=== PATIENT | male | born 1945 | race Caucasian/White ===

== ENCOUNTER → 2017-09-14 11:59 | Outpatient (CLI) | payer MEDICARE, SELFPAY ==
--- NOTE | 2017-09-14 12:16 | XR_ITS ---
XR knee LT 3V HISTORY: ITS.REASON: LEFT KNEE PAIN ORDERING PHYSICIAN: Avinash Salmeron MD PATIENT AGE: 71 years COMPARISON: FINDINGS: Minor osteoarthritic changes are present involving the medial compartment and patellofemoral joint. No fracture or dislocation. No lytic or blastic change. IMPRESSION: Mild osteoarthritis otherwise negative
--- NOTE | 2017-09-14 12:38 | NVE_ITS ---
Venous Exam Indications: 729.5 Pain in limb. IMPRESSIONS 1. There is no evidence of significant Reflux. 2. No evidence of deep or superficial vein thrombosis involving the left lower extremity Left lower extremity venous duplex evaluation. Doppler flow study including spectral analysis, color and lane scale imaging. Location: Vascular laboratory. Patient status: Outpatient. CRITICAL FINDINGS - Reported to: NIKOLAI - Read back and verified. - 09/14/17 - 1300 - NONE Tables: Venous flow and imaging: + +-------+ + Location Overall Flow properties + +-------+ + Left common femoral Patent Normal phasicity; spontaneous; normal augmentation; compressible + +-------+ + Left saphenofemoral junction Patent Compressible + +-------+ + Left profunda femoral Patent Compressible + +-------+ + Left femoral Patent Normal phasicity; spontaneous; normal augmentation; compressible + +-------+ + Left greater saphenous Patent Normal phasicity; spontaneous; normal augmentation; compressible + +-------+ + Left popliteal Patent Normal phasicity; spontaneous; normal augmentation; compressible + +-------+ + Left posterior tibial Patent Compressible + +-------+ + Left peroneal Patent Compressible + +-------+ + Left gastrocnemius Patent Compressible + +-------+ + Left soleal Patent Compressible + +-------+ + (Report amended ) Electronically signed by: Ulises Anderson [id number]
== END ==
PROVIDERS: PCP Family Medicine; Visit Provider Family Medicine
DX: M25.562 Pain in left knee (principal); M79.605 Pain in left leg
CPT/HCPCS: 73562; 93971

== ENCOUNTER → 2017-09-23 14:58 | Outpatient (CLI) | payer MEDICARE, SELFPAY ==
--- NOTE | 2017-09-23 15:20 | MR_ITS ---
MR knee LT wo con HISTORY: Left knee pain when bending knee ITS.REASON: LEFT LEG PAIN ORDERING PHYSICIAN: Avinash Salmeron MD PATIENT AGE: 71 years COMPARISON: 09/14/2017 XRAY TECHNIQUE: Standard multiplanar multiecho sequences are performed without contrast. FINDINGS: The fibers of the anterior cruciate ligament are sparse consistent with partial tear versus severe sprain. There are a few fibers which appear. Please correlate with physical exam. The posterior cruciate ligament, collateral ligaments, patellar tendon, and quadriceps tendon appear intact. There is a nondisplaced complex tear involving the posterior horn of the medial meniscus extending from the medial aspect of the central aspect. The lateral meniscus has an unremarkable appearance. There is a small knee joint effusion. Patellar cartilage is preserved. There is slight decrease in the knee joint space medially and laterally consistent with mild osteoarthritic change slightly greater along the medial compartment. Small area of increased T2 signal involves the posterior and proximal aspect of the medial femoral condyle on specific area of bone marrow edema IMPRESSION: 1. Partial tear versus severe sprain of the ACL. 2. Nondisplaced complex tear involves the posterior horn of the medial meniscus 3. Mild osteoarthritic change with knee joint effusion
== END ==
PROVIDERS: Family Provider Family Medicine; PCP Family Medicine; Visit Provider Family Medicine
DX: M25.562 Pain in left knee (principal); M79.605 Pain in left leg
CPT/HCPCS: 73721

== ENCOUNTER → 2021-01-23 08:07 | Outpatient (CLI) | payer MEDICARE, SELFPAY ==
--- NOTE | 2021-01-23 08:11 | US_ITS ---
PROCEDURE: US ABDOMEN LIMITED CLINICAL INDICATION: ELEVATED LIVER FUNCTION TEST COMPARISON: No exams were available for comparison FINDINGS: PANCREAS: Unremarkable. No obvious mass or abnormal fluid collection. No ductal dilatation LIVER: No focal liver lesions demonstrated. Homogeneous echogenicity. No intrahepatic biliary ductal dilatation evident. There is appropriate direction of blood flow within a non dilated portal vein RIGHT KIDNEY: Unremarkable. Normal size and echogenicity. No hydronephrosis GALLBLADDER: Tumefactive sludge noted within the gallbladder. No shadowing stones, gallbladder wall thickening, or pericholecystic fluid. Common bile duct is normal at 3 mm. IMPRESSION: Gallbladder sludge otherwise negative Dictated by: Ulises Anderson MD 01/23/2021 16:40 Ulises Anderson MD in [place] 01/23/2021 16:40
== END ==
PROVIDERS: PCP Family Medicine; Visit Provider Family Medicine
DX: R79.89 Other specified abnormal findings of blood chemistry (principal)
CPT/HCPCS: 76705

== ENCOUNTER → 2021-05-28 10:35 | Outpatient (CLI) | payer MEDICARE, SELFPAY ==
--- NOTE | 2021-05-28 10:45 | XR_ITS ---
FINAL REPORT TECHNIQUE: Chest PA & Lateral CLINICAL HISTORY: CARDIOMYOPATHY, soa FINDINGS: 2 views of the chest were performed. The heart size is normal. The mediastinum is within normal limits. There is no acute cardiopulmonary process. The lungs are little underinflated. There are no pleural effusions. There is no pneumothorax. The bony thorax appears intact. IMPRESSION: No acute cardiopulmonary process. Reviewed, Interpreted and Dictated by Kj Otto MD Transcribed by Honey Weinberg Authenticated by Kj Otto MD on 05/28/2021 12:14:15 PM [facility]
--- NOTE | 2021-05-28 11:11 | ECG_ITS ---
APPROVED REPORT Exam: Resting ECG HR:74 bpm ECG Measurements Heart Rate 74 AXES QRSd 90 QRS 74 QT 402 T -17 QTc 446 Conclusion Atrial fibrillation Abnormal QRS-T angle, consider primary T wave abnormality Abnormal ECG Electronically signed by : Quoc Hayden MD 05/31/2021 14:35:58
== END ==
PROVIDERS: PCP Family Medicine; Visit Provider Family Medicine
DX: I42.9 Cardiomyopathy, unspecified (principal); I48.19 Other persistent atrial fibrillation
CPT/HCPCS: 71046; 93005

== ENCOUNTER → 2021-05-31 10:12 | Outpatient (CLI) | payer MEDICARE, SELFPAY ==
--- NOTE | 2021-05-31 10:15 | CA_ITS ---
APPROVED REPORT EXAM: Comprehensive 2D, Doppler, and color-flow Echocardiogram Healthcare Facility Administrator: Elvi Humphrey, RCS, RVS Ht: 6 ft 0 in Wt: 250lbs BSA: 2.34 BP: 130/80 mmHg Indications: A-Fib, Hx-CM last ef 45%, episode of SOA with palpiitations with fatigue-2 weeks ago, HTN 2D Dimensions IVSd 1.24 cm LVEF (Visual) 55.10 % PWd 1.18 cm LA Volume 108.50 mL LVDd 5.00 cm M: 4.2 - 5.9 LA Volume Index 46.36 mL/m2 (M/F) 16-34 LVDs 3.00 cm M: 2.5 - 4.0 Aortic Root 3.38 cm Left Atrium 4.79 cm LVOT 2.11 cm (M/F) 1.5-2.5 M-Mode Dimensions LA Diam 5.22 cm (1.9-4.0) LVDd 4.67 cm (3.5-5.7) Ao Diam 3.18 cm (2.0-3.7) LVDs 3.23 cm (3.5-5.7) EF (Teich) 50.00% EPSs 1.21 cm FS 30.80% EDV (Teich) 100.80 mL TAPSE 1.75 (<1.7) ESV (Teich) 41.90 mL LV Diastology E Decel Time 170.00 (160-240 msec) E/A Ratio 13.94 MED E' 6.20 (< 7 cm/sec) MED A' 1.60 cm/s E'/MED E' Ratio 14.61 (>14) LAT E' 6.50 (<10 cm/sec) LAT A' 3.60 cm/s E/LAT E' Ratio 13.94 (>14) Aortic Valve LVOT Max 77.00 (70-110 cm/s) LVOT VTI 15.32 cm AoV Peak Delbert. 160.00 (50-130 cm/s) AI PHT 788.00 ms AO Peak GR. 10.20 mmHg AO Mean GR. 5.10 (<5 mmHg) AO VTI 30.88 (18-25 cm) LUPIS (VTI) 1.73 (2.5-4.5 cm2) Mitral Valve MV E Max Delbert. 91.00 (40-130 cm/s) MV Decel. Time 170.00 (160-240 ms) MV Mean Gr. 1.10 (<2mmHg) MV PHT 50.00 ms Pulmonary Valve PV Peak Velocity 78.00 (50-150 cm/s) Tricuspid Valve TR P. Velocity 248.00 cm/s RAP Estimate 10.00 mmHg RVSP 34.60 mmHg Left Ventricle Left atrium is moderately enlarged, left ventricle is normal size, mild concentric left ventricular hypertrophy, visually estimated ejection fraction 55% with no obvious regional wall motion abnormality, endocardial surfaces are poorly visualized, diastolic parameters are inconclusive. Right Ventricle Right atrium and right ventricle are mildly enlarged with normal contractility. Aortic Valve Aortic valve is minimally thickened and fibrosed, there is no aortic stenosis, there is mild aortic insufficiency. Mitral Valve Mitral valve grossly normal, there is trace mitral regurgitation. Tricuspid Valve Tricuspid valve grossly normal, there is trace tricuspid regurgitation, tricuspid regurgitation jet velocity is inadequate for calculation of the right ventricular systolic pressure. Pulmonic Valve Pulmonic valve is poorly visualized. Great Vessels Aortic root is normal size. Inferior vena cava is poorly visualized. Pericardium No significant pericardial effusion noted. Conclusion 1. Biatrial enlargement, normal left ventricular size, mild concentric left ventricular hypertrophy, visually estimated ejection fraction 55% with no regional wall motion abnormality, diastolic parameters are inconclusive. 2. Mildly enlarged right ventricle with normal contractility. 3. Mild aortic, trace mitral and tricuspid regurgitation. 4. No significant pericardial effusion noted. 5. Inferior vena cava is poorly visualized. Electronically signed by : Mak Curtis MD 05/31/2021 11:30:39
== END ==
PROVIDERS: PCP Family Medicine; Visit Provider Family Medicine
DX: I42.8 Other cardiomyopathies (principal)
CPT/HCPCS: 93306

== ENCOUNTER 2023-03-16 12:00 | Emergency (ER) | payer MEDICARE, SELFPAY ==
--- NOTE | 2023-03-16 11:59 | ECG_ITS ---
APPROVED REPORT Exam: Resting ECG HR:91 bpm ECG Measurements Heart Rate 91 AXES QRSd 93 QRS 44 QT 344 T 69 QTc 393 Conclusion ATRIAL FIBRILLATION LOW QRS VOLTAGE IN EXTREMITY LEADS [QRS DEFLECTION < 0.5 mV IN LIMB LEADS] ABNORMAL RHYTHM ECG UNCONFIRMED REPORT Electronically signed by : Quoc Hayden MD 03/17/2023 14:48:28
[2023-03-16 12:05] VITALS: BP 99/64; PULSE 79; PULSE 89; RESP 18; RESP 20; TEMP 37; O2SAT 97; O2SAT 98; BMI 34.9
--- NOTE | 2023-03-16 12:11 | XR_ITS ---
FINAL REPORT TECHNIQUE: Single view chest CLINICAL HISTORY: cp COMPARISON: 05/28/2021 FINDINGS: A single view of the chest was obtained. The heart and mediastinum are within normal limits. There are mild bibasilar opacities, favor atelectasis or pneumonia. There is no pneumothorax. Osseous structures are unremarkable. IMPRESSION: Mild bibasilar opacities, favor atelectasis or pneumonia. Reviewed, Interpreted and Dictated by Brett Valero III, MD Transcribed by Zenaida Delacruz Authenticated and [facility]
--- NOTE | 2023-03-16 12:13 | PC.NURSE ---
Dr. Eastman at BS for pt eval
--- NOTE | 2023-03-16 12:15 | PC.NURSE ---
Notified RT of VBG
[2023-03-16 12:19] LABS: Basophils % 0.4 % (0.1-2.0); Eosinophils # 0.2 K/mm3 (0.0-0.4); Eosinophils % 3.1 % (0.1-12.0); Hematocrit 33.4 % (42.0-52.0); Hemoglobin 11.4 g/dL (14.1-18.0); Lymphocytes # 1.2 K/mm3 (0.7-4.5); Lymphocytes % 15.7 % (10-50); Mean Corpuscular HGB Conc 34.1 g/dL (31.8-35.4); Mean Corpuscular Hemoglobin 30.2 pg (27.0-31.2); Mean Corpuscular Volume 88.6 fl (80-94); Mean Platelet Volume 8.7 fl (7.4-10.4); Monocytes # 0.7 K/mm3 (0.1-1.0); Monocytes % 9.4 % (1.7-9.3); Neutrophils # 5.6 K/mm3 (1.8-7.8); Neutrophils % 71.5 % (37.0-80.0); Platelet Count 187 K/mm3 (142-424); Red Blood Count 3.77 M/mm3 (4.60-6.20); Red Cell Distribution Width 15.5 % (11.5-17.5); White Blood Count 7.8 K/mm3 (4.8-10.8)
--- NOTE | 2023-03-16 12:26 | PC.NURSE ---
RAD at for CXR
[2023-03-16 12:30] VITALS: BP 91/61; PULSE 86; O2SAT 97
[2023-03-16 12:32] LABS: NT Pro Brain Natriuretic Pep. 5080 pg/mL (0-450)
[2023-03-16 12:40] LABS: Alanine Aminotransferase 40 U/L (12-78); Albumin Level 3.6 g/dl (3.5-5.0); Albumin/Globulin Ratio 1.2 (1.1-1.8); Alkaline Phosphatase 74 U/L (38-126); Anion Gap 15.8 mEq/L (5-15); Aspartate Amino Transferase 38 U/L (17-59); Bilirubin,Total 0.6 mg/dl (0.2-1.3); Blood Urea Nitrogen 17 mg/dl (9-20); Calcium 8.3 mg/dl (8.4-10.2); Carbon Dioxide 20 mmol/L (22.0-30.0); Chloride 101 mmol/L (98-107); Creatinine Clearance Estimated 99 mL/min (50-200); Estimated Glomerular Filt Rate 81 ml/min (>60); GFR (African American) 98 ML/MIN (>60); Glucose 109 mg/dl (74-100); Potassium 3.8 mmoL/L (3.5-5.1); Sodium 133 mmol/L (136-145); Total Protein,Serum 6.6 g/dl (6.3-8.2)
--- NOTE | 2023-03-16 12:46 | HMH.EDGENADL ---
Discharge Plan Disposition Chief Complaint: Chest Pain Referrals Follow up/Referrals: Provider,Referral, MD [Primary Care Provider] - See instructions Clinical Impressions Clinical Impression: CHF (congestive heart failure), Chest pain Discharge ED Provider: Federico Eastman General Adult HPI General Chief complaint: Chest Pain Stated complaint: chest pain Time Seen by Provider: 03/16/23 12:09 Mode of Arrival: Ambulatory Source of Information: Patient Limitations: No Limitations Description of Symptoms (Recalled from ER Triage Doc. by RN): pt to ed c/o left sided chest pain and soa. pt states his blood pressure drops and he has pain. pt states it's a dull pain in nature. pt denies any other symptoms. History of Present Illness HPI narrative: 77-year-old male history of hypertension, CHF, CAD status post stenting x2 presenting with chest pressure. This has been going on for 2 or 3 days. Patient states that the chest pressure is worse when his blood pressure drops. When he feels weak, he has been checking his blood pressure multiple times throughout the past few days. Denies diaphoresis, shortness of breath, nausea or vomiting. Chest pain is more of a pressure, substernal, does not radiate made better with deep breaths. Related Data Allergies Allergy/AdvReac Type Severity Reaction Status Date / Time NO KNOWN DRUG ALLERGIES - Allergy Unknown Uncoded 05/12/17 15:34 [facility] Disclaimer: The information contained in this section may have been updated after the patient was seen, as this information can be updated by other users. Social History Smoking Status: Never smoker alcohol intake: never current occupational status: retired Travel in the last 8 weeks: None ROS Obtained: Yes All systems reviewed & no additional complaints except as documented Physical Exam General General appearance: alert and in no apparent distress Head Head exam: atraumatic and normocephalic Eye Eye exam: Present normal appearance, PERRL and EOMI ENT ENT exam: Present mucous membranes moist Neck Neck exam: Present normal inspection, full ROM and trachea midline Chest Chest inspection: Present symmetric chest wall rise Respiratory Respiratory exam: Present normal lung sounds bilaterally; Absent respiratory distress, wheezes, stridor, accessory muscle use or prolonged expiratory phase Cardiovascular Cardiovascular exam: Present regular rate and normal rhythm; Absent systolic murmur Abdominal Exam Abdominal exam: Present soft; Absent distention, tenderness, guarding, rebound, rigidity or normal bowel sounds Extremities Exam Extremities exam: Absent edema Neurological Exam Neurological exam: Present alert, oriented X3, CN II-XII intact and normal gait; Absent motor sensory deficit Skin Skin exam: Present warm and dry; Absent diaphoresis or erythema Medical Decision Making Medical Records Medical records reviewed: Yes I reviewed the patient's medical records. Sonido Inquiry Pt receiving controlled substance: No Sonido was queried for this patient: No Vital Signs: 03/16/23 12:05 03/16/23 12:05 03/16/23 12:30 Temperature 98.6 F Temperature Source Oral Pulse Rate 79 86 Pulse Rate [Left Radial] 89 Respiratory Rate 20 18 Blood Pressure 99/64 L 91/61 L Blood Pressure [Right Arm] 99/64 L Blood Pressure Mean 75 Blood Pressure Mean [Right Arm] 75 02 Sat by Pulse Oximetry 98 97 97 Oxygen Delivery Method Room Air Room Air 03/16/23 13:01 Temperature Temperature Source Pulse Rate 80 Pulse Rate [Left Radial] Respiratory Rate Blood Pressure 102/62 L Blood Pressure [Right Arm] Blood Pressure Mean Blood Pressure Mean [Right Arm] 02 Sat by Pulse Oximetry 96 Oxygen Delivery Method Room Air Lab Data Lab Results 03/16/23 12:00: WBC 7.8, RBC 3.77 L, Hgb 11.4 L, Hct 33.4 L, MCV 88.6, MCH 30.2, MCHC 34.1, RDW 15.5, Plt Count 187, MPV 8.7, Neut % (Auto) 71.5, Lymph % (Auto) 15.7, [place] %
[2023-03-16 12:50] LABS: VBG Base Excess -4.6 mmol/L (-2.4-2.3); VBG HCO3 21.1 mmol/L (23-30); VBG Oxygen Saturation 90.8 % (50-70); VBG PCO2 39.9 mmol/L (35-51); VBG PH 7.34 mmol/L (7.31-7.41); VBG Total CO2 22.4 mmol/L (23-27)
[2023-03-16 12:56] LABS: Troponin I < 0.01 ng/ml (0.00-0.034)
[2023-03-16 13:01] VITALS: BP 102/62; PULSE 80; O2SAT 96
--- NOTE | 2023-03-16 13:07 | PC.NURSE ---
DR BOYLE SPEAKING WITH DR LUCAS ABOUT ADMISSION
--- NOTE | 2023-03-16 13:09 | CA_ITS ---
APPROVED REPORT EXAM: Comprehensive 2D, Doppler, and color-flow Echocardiogram Service Technician Copier: Hafsa Harrington RVT Ht: 6 ft 0 in Wt: 258lbs BSA: 2.37 BP: 102/62 mmHg Indications: CP,CHF,CAD,FATIGUE,HTN TDS-PT BODY HABITUS 2D Dimensions LVOT 2.62 cm (M/F) 1.5-2.5 LA Volume 102.30 mL LA Volume Index 43.16 mL/m2 (M/F) 16-34 M-Mode Dimensions RVDd 3.38 cm (0.9-2.6) LA Diam 5.96 cm (1.9-4.0) LVDd 4.35 cm (3.5-5.7) Ao Diam 3.68 cm (2.0-3.7) LVDs 3.06 cm (3.5-5.7) IVSd 1.45 cm (0.6-1.1) PWd 0.80 cm (0.6-1.1) EF (Teich) 57.00% FS 29.70% EDV (Teich) 85.40 mL TAPSE 1.43 (<1.7) ESV (Teich) 36.70 mL LV Diastology MED E' 7.30 (< 7 cm/sec) LAT E' 7.50 (<10 cm/sec) Aortic Valve LVOT Max 80.00 (70-110 cm/s) LVOT VTI 15.63 cm AoV Peak Delbert. 188.00 (50-130 cm/s) AI PHT 696.00 ms AO Peak GR. 14.10 mmHg AO Mean GR. 6.90 (<5 mmHg) AO VTI 33.66 (18-25 cm) LUPIS (VTI) 2.50 (2.5-4.5 cm2) Pulmonary Valve PV Peak Velocity 65.00 (50-150 cm/s) Tricuspid Valve TR P. Velocity 313.00 cm/s RAP Estimate 10.00 mmHg RVSP 49.30 mmHg Left Ventricle The left ventricle is normal size. The left ventricular systolic function is normal. The left ventricular ejection fraction is within the normal range. There is normal left ventricular wall thickness. Septum appears asynchronous. No regional wall motion abnormalities are noted. Diastolic function is indeterminate due to atrial fibrillation. LVEF is 55%. Right Ventricle The right ventricle is moderately dilated. There is moderate reduction in RV systolic function. Atria The left atrium is moderately dilated. The right atrium is severely dilated. There is no Doppler evidence of interatrial shunt. Aortic Valve The aortic valve is mildly thickened. There is no aortic valvular stenosis. Mild aortic regurgitation. Mitral Valve The mitral valve is mildly thickened. No evidence of mitral valve stenosis. Mild mitral regurgitation. Tricuspid Valve The tricuspid valve leaflets are thin and pliable. Mild tricuspid regurgitation. RVSP is 50???55 mmHg. Pulmonic Valve The pulmonary valve is grossly normal in structure. Trace pulmonic regurgitation. Great Vessels The aortic root is normal in size. The ascending aorta is not well visualized. The IVC is plethoric. Pericardium Small pericardial effusion is noted anteriorly along the RV free wall. The largest pocket measures 0.6 cm in diastole. No clear echo indications of tamponade (elevated IVC, but no chamber collapse mitral inflow respirophasic variation). Other Information Study Quality: Fair Conclusion Normal LV systolic function. Moderately dilated RV with moderate reduction in RV systolic function. Mild AI, MR, TR. Elevated RVSP 50-55 mmHg Small anterior pericardial effusion along the RV free wall. No clear echo indications of tamponade. Electronically signed by : Ludivina García MD 03/16/2023 22:16:25
--- NOTE | 2023-03-16 13:56 | PC.NURSE ---
report called to hal
[2023-03-16 14:08] VITALS: BP 116/75; PULSE 79; RESP 18; TEMP 36.4; O2SAT 98
--- NOTE | 2023-03-16 14:08 | PC.NURSE ---
vascular was at bedside, pt to med surg at this time
--- NOTE | 2023-03-16 14:11 | PC.NURSE ---
arrived to floor by w/c from ED
[2023-03-16 14:13] VITALS: BP 116/75; PULSE 79; RESP 18; TEMP 36.4; O2SAT 98; BMI 37.0
--- NOTE | 2023-03-16 14:46 | EXP.CARD.CON ---
History of Present Illness History of Present Illness Consult date: 03/16/23 Requesting physician: Avinash Salmeron Consult reason: chest pain and shortness of breath Chief complaint: chest pain, weakness, low bp, soa History of present illness: 77-year-old male with past medical history of chronic A-fib on Eliquis and coronary artery disease presented to emergency department with complaints of shortness of air, weakness, hypotension and chest pain x3 days. Patient reports he first noticed symptoms 3 days ago when he was feeling weak and could feel his heart beating fast in his chest. He reports systolic pressure has been in the 80s at times. Reports could only feel heart beating fast when blood pressure was low and symptoms would resolve with a deep breath. Denies any chest pain currently. Upon presentation to ER patient was noted to be in A-fib rate controlled at 91. Labs as follow: Sodium 133, potassium 3.8, creatinine 0.9, BNP 5080. Troponin negative. Systolic BP noted to be in the 90s. Patient reports does not take Lasix daily but takes it as needed for shortness of breath and lower extremity edema. Reports previously seen Dr. Payne at [facility] and had stenting to his heart 3 to 4 years ago and has not seen cardiology since. Patient reports he thinks he is on too many blood pressure medications and its causing his blood pressure to drop in A-fib to act up. Preliminary echo shows an estimated EF of 55. Official read is pending. [facility] Disclaimer: The information contained in this section may have been updated after the patient was seen, as this information can be updated by other users. Medical History (Updated 03/16/23 @ 14:56 by Yue Weathers APRN) Hypertension Sleep apnea Surgical History (Updated 03/16/23 @ 14:53 by Jennifer Conrad RN) History of knee replacement Family History (Updated 03/16/23 @ 14:55 by Jennifer Conrad RN) Mother Liver disease Social History (Updated 03/16/23 @ 13:12 by Federico Eastman MD) Smoking Status: Never smoker alcohol intake: never current occupational status: retired Travel in the last 8 weeks: None Review of Systems *Cardiovascular Cardiovascular: Reports chest pain and Reports dyspnea Comments: Weakness, hypotension *Respiratory Respiratory: Reports dyspnea Exam Data for Last 24 hours Vital signs and Labs for Last 24 Hours: Temp Pulse Resp BP Pulse Ox O2 Del Method 97.5 F L 79 18 116/75 98 Room Air 03/16/23 14:13 03/16/23 14:13 03/16/23 14:13 03/16/23 14:13 03/16/23 14:13 03/16/23 14:13 Laboratory Results - last 24 hr 03/16/23 12:00: WBC 7.8, RBC 3.77 L, Hgb 11.4 L, Hct 33.4 L, MCV 88.6, MCH 30.2, MCHC 34.1, RDW 15.5, Plt Count 187, MPV 8.7, Neut % (Auto) 71.5, Lymph % (Auto) 15.7, [place] % (Auto) 9.4 H, Eos % (Auto) 3.1, Baso % (Auto) 0.4, Neut # (Auto) 5.6, Lymph # (Auto) 1.2, [place] # (Auto) 0.7, Eos # (Auto) 0.2, Baso # (Auto) 0.0, Sodium 133 L, Potassium 3.8, Chloride 101, Carbon Dioxide 20 L, Anion Gap 15.8 H, BUN 17, Creatinine 0.90, Estimated Creat Clear 99, Estimated GFR 81, Est GFR ( Amer) 98, Glucose 109 H, Calcium 8.3 L, Total Bilirubin 0.6, AST 38, ALT 40, Alkaline Phosphatase 74, Troponin I < 0.01, NT-Pro-B Natriuret Pep 5080 H, Total Protein 6.6, Albumin 3.6, Globulin 3.0, Albumin/Globulin Ratio 1.2 03/16/23 12:12: VBG pH 7.34, VBG pCO2 39.9, VBG pO2 64.0 H, VBG HCO3 21.1 L, VBG Total CO2 22.4 L, VBG O2 Saturation 90.8 H, VBG Base Excess -4.6 L I & O for Last 24 hours: Intake & Output 03/13/23 03/14/23 03/15/23 03/16/23 23:59 23:59 23:59 23:59 Weight 273 lb 9 oz Constitutional Constitutional: no acute distress *Routine Respiratory Exam Respiratory: Present CTA bilaterally and symmetric chest movement *Routine Cardiovascular Exam Cardiovascular: Present Normal S1, Normal S2, irregular rhythm and irregularly irregular Comments: A-fib rate controlled 90s *Routine Abdominal Exam Abdominal: Present sof
--- NOTE | 2023-03-16 14:56 | PC.NURSE ---
this nurse took report from [place]usta in ED. techs went to get pt and stated youre here to take me to my truck? . when pt got to floor pt was unaware of being admitted stating if i would have known that i would have told them no downstairs pt very polite. notified stacey, stacey will be to floor after hrs to see pt. pt states i cant stay that long .
--- NOTE | 2023-03-16 16:34 | EXP.HPDC ---
General Admission date:: 03/16/23 Discharge date: 03/16/23 *Chief complaint: CP and low BP *History of present illness: Chief complaint: chest pain, weakness, low bp, soa History of present illness: 77-year-old male with past medical history of chronic A-fib on Eliquis and coronary artery disease presented to emergency department with complaints of shortness of air, weakness, hypotension and chest pain x3 days. Patient reports he first noticed symptoms 3 days ago when he was feeling weak and could feel his heart beating fast in his chest. He reports systolic pressure has been in the 80s at times. Reports could only feel heart beating fast when blood pressure was low and symptoms would resolve with a deep breath. Denies any chest pain currently. Upon presentation to ER patient was noted to be in A-fib rate controlled at 91. Labs as follow: Sodium 133, potassium 3.8, creatinine 0.9, BNP 5080. Troponin negative. Systolic BP noted to be in the 90s. Patient reports does not take Lasix daily but takes it as needed for shortness of breath and lower extremity edema. Reports previously seen Dr. Payne at [facility] and had stenting to his heart 3 to 4 years ago and has not seen cardiology since. Patient reports he thinks he is on too many blood pressure medications and its causing his blood pressure to drop in A-fib to act up. Preliminary echo shows an estimated EF of 55. Official read is pending.Chief complaint: chest pain, weakness, low bp, soa Plan Coronary artery disease with previous stenting Atypical chest pain -After talking with patient it sounds as though the chest pain he is describing is more palpitations than pain. Symptoms resolved with deep breath. Exacerbated with episodes of hypotension. -EKG is negative for acute ischemic changes -Troponin negative -Previous stenting 3 to [address] Payne. Attempting to get medical record -Continue aspirin 81 mg p.o. daily, atorvastatin 40 mg p.o. daily, carvedilol 25 mg p.o. twice daily. Decrease Imdur to 30 mg p.o. day due to hypotension A-fib Krunal Vasc score 5 Acute HFpEF NYHA II -Continue Eliquis 5 mg p.o. twice daily -Continue carvedilol 25 mg p.o. twice daily -Echo- Ef 55, Right ventricle appears to be more dilated then previous, official read is pending. Recommend CTA chest -Lasix 40 mg given IV x1 in ER for shortness of air and lower extremity edema -Closely monitor I's and O's Hypertension with recent episodes of hypotension -Continue beta-donavon for rate control for A-fib. Decrease home dose of lisinopril to 20 mg a day and decrease isosorbide to 30 mg p.o. daily. Stop Maxide. CV summary 03/16/2023: Echo is pending. Medication changes listed above. 1522- Patient left AMA per RN. Called and spoke with patient's , patient scheduled to follow up in cards clinic tomorrow morning at 9am CV meds Aspirin 81 mg p.o. daily Atorvastatin 40 mg p.o. daily Carvedilol 25 mg p.o. twice daily Imdur 30 mg p.o. daily Eliquis 5 mg p.o. twice daily Lisinopril 20 mg p.o. daily the above as per cardiology documentation [facility] Disclaimer: The information contained in this section may have been updated after the patient was seen, as this information can be updated by other users. Medical History (Updated 03/16/23 @ 14:56 by Yeu Weathers APRN) Hypertension Sleep apnea Surgical History (Updated 03/16/23 @ 14:53 by Jennifer Conrad RN) History of knee replacement Family History (Updated 03/16/23 @ 14:55 by Jennifer Conrad RN) Liver disease Mother Social History (Updated 03/16/23 @ 14:55 by Jennifer Conrad RN) Smoking Status: Never smoker alcohol intake: never current occupational status: retired Travel in the last 8 weeks: None Review of Systems Review of Systems Review of systems:: unable to obtain (pt left AMA) Exam Data for Last 24 hours Vital signs and Labs for Last 24 Hours: Temp Pulse Resp BP Pulse Ox O2 Del Method 97.
== END 2023-03-16 14:08 | disposition admitted as inpatient to this hospital (09) ==
LOC: ER 13:18 → 2ND 14:19
PROVIDERS: Emergency Provider Emergency Medicine; Visit Provider Family Medicine
DX: I50.30 Unspecified diastolic (congestive) heart failure (principal); I48.91 Unspecified atrial fibrillation; Z79.01 Long term (current) use of anticoagulants; I25.10 Atherosclerotic heart disease of native coronary artery without angina pectoris; I11.0 Hypertensive heart disease with heart failure
CPT/HCPCS: 71045; 80053; 82803; 83880; 84484; 85025; 93005; 93306; 96374; 99285; G0378

== ENCOUNTER 2024-01-18 21:07 | Emergency (ER) | payer MEDICARE, SELFPAY ==
[2024-01-18 21:09] VITALS: BP 159/93; PULSE 114; RESP 22; TEMP 36.5; O2SAT 95; BMI 32.8
--- NOTE | 2024-01-18 21:18 | ECG_ITS ---
APPROVED REPORT Exam: Resting ECG HR:98 bpm ECG Measurements Heart Rate 98 AXES QRSd 94 QRS 10 QT 365 T 36 QTc 420 Conclusion ATRIAL FIBRILLATION Some motion artifact degrades study but no obvious acute ST changes concerning for ischemia. Electronically signed by : AQUILINO BARBOZA, 01/19/2024 00:17:32
--- NOTE | 2024-01-18 21:23 | XR_ITS ---
PROCEDURE INFORMATION: Exam: XR Chest Exam date and time: 01/18/2024 9:21 PM Age: 78 years old Clinical indication: Shortness of breath; Additional info: SOA TECHNIQUE: Imaging protocol: Radiologic exam of the chest. Views: 1 view. COMPARISON: 1. CR XR CHEST PORTABLE 03/16/2023 12:41 PM 2. CR XR CHEST 2V 05/28/2021 10:54 AM FINDINGS: Lungs: Eventration of the posterior left hemidiaphragm with mild left basilar atelectasis again noted. Lungs are otherwise clear. Pleural spaces: Unremarkable. No pleural effusion. No pneumothorax. Heart/Mediastinum: Cardiomegaly redemonstrated. Bones/joints: Unremarkable. IMPRESSION: Stable chest x-ray with no acute disease.
--- NOTE | 2024-01-18 21:26 | HMH.EDCP ---
Discharge Plan Disposition Patient Disposition: Home, Self-Care Condition: Good Prescriptions Prescriptions: New azithromycin 500 mg tablet 500 mg PO DAILY 2 Days Qty: 2 0RF Rx Instructions: start on day 2 of therapy prednisone 50 mg tablet 50 mg PO DAILY 5 Days Qty: 5 0RF No Action atorvastatin 40 mg tablet 20 mg PO DAILY carvedilol 25 mg tablet 25 mg PO BID Patient Comments: TAKE 1 TABLET BY MOUTH TWICE A DAY sertraline 100 mg tablet 100 mg PO DAILY Patient Comments: TAKE 1 TABLET BY MOUTH EVERY DAY isosorbide mononitrate 60 mg tablet extended release 24 hr PO omeprazole 20 mg capsule,delayed release(DR/EC) 20 mg PO DAILY allopurinol 300 mg tablet 300 mg PO DAILY lisinopril 40 mg tablet 40 mg PO DAILY doxazosin 2 mg tablet 1 mg PO DAILY aspirin 81 mg tablet,delayed release (DR/EC) 81 mg PO DAILY Eliquis 5 mg tablet 5 mg PO BID Referrals Follow up/Referrals: Avinash Salmeron MD [Primary Care Provider] - See instructions Activity Restrictions/Add. Instructions Additional Instructions/Restrictions: You were evaluated in the emergency department today. Please sweet pickle maker your prescriptions at the pharmacy and take the full course as prescribed. Use the inhaler provided to you every 4-6 hours as needed for wheezing. Use 2 puffs. Follow-up closely with your primary care provider. Return to the emergency department for new or worsening symptoms. Clinical Impressions Clinical Impression: Wheezing, CHF (congestive heart failure), Bronchitis Instructions Patient Instructions: DI for Asthma -- Adult, DI for Shortness of Breath Print Language Print Language: Indian Discharge ED Provider: Swetha Reed [facility] General Chief Complaint: Shortness of Breath/Dyspnea Stated Complaint: SOA Time Seen by Provider: 01/18/24 21:10 Mode of Arrival: Wheelchair Source of Information: Patient Limitations: No Limitations Description of Symptoms (Recalled from ER Triage Doc. by RN): Pt presents to ED for SOB X 3 days. Pt states he has felt bad for about 3 days and has an appt with Dr. Salmeron in the morning. However, he feels like he's struggling to breathe at this time. Pt's O2 while moving was in the 80's but once he was settled in the bed, he went up to the 90's. Pt states he has no hx of COPD but does have a cardiac hx. States he had 2 stents placed around 10 years ago. (Pt is unsure of date) Pt is A&O*4 and is bedside. History of Present Illness HPI narrative: This patient is an 78-year-old male with a history of hypertension, hyperlipidemia, CAD, atrial fibrillation on diltiazem and Eliquis, and CHF presenting to the emergency department for evaluation with concern for shortness of breath. Patient states that he has significant dyspnea on exertion has been going on for about 3 days now. Its progressively worsened. He denies any fevers, chills, cough, chest pain, abdominal pain, vomiting, or other concerns. He notes that he does have leg swelling, which is chronic for him. He takes Lasix at home. He reports compliance with this and just took 40 mg of Lasix prior to arrival. He denies any history of COPD, asthma, lung problems. Related Data Home Medications ?Medication ?Instructions ?Recorded ?Confirmed allopurinol 300 mg tablet 300 mg PO DAILY 03/17/23 03/17/23 apixaban 5 mg tablet (Eliquis) 5 mg PO BID 03/17/23 03/17/23 aspirin 81 mg tablet,delayed 81 mg PO DAILY 03/17/23 03/17/23 release atorvastatin 40 mg tablet 20 mg PO DAILY 03/17/23 03/17/23 carvedilol 25 mg tablet 25 mg PO BID 03/17/23 03/17/23 doxazosin 2 mg tablet 1 mg PO DAILY 03/17/23 03/17/23 isosorbide mononitrate 60 mg mg PO 03/17/23 03/17/23 tablet,extended release 24 hr lisinopril 40 mg tablet 40 mg PO DAILY 03/17/23 03/17/23 omeprazole 20 mg capsule,delayed 20 mg PO DAILY 03/17/23 03/17/23 release sertraline 100 mg tablet 100 mg PO DAILY 02/23
[2024-01-18 21:30] VITALS: BP 160/93; PULSE 98; RESP 34; O2SAT 97
[2024-01-18 21:37] LABS: Lactate Venous 2.3 mmol/L (0.4-2.0); VBG HCO3 23.3 mmol/L (23-30); VBG Oxygen Saturation 46.5 % (50-70); VBG PCO2 41.3 mmol/L (35-51); VBG PH 7.37 mmol/L (7.31-7.41); VBG PO2 28.1 mmol/L (28-40); VBG Total CO2 24.6 mmol/L (23-27)
[2024-01-18 21:39] LABS: Basophils % 0.5 % (0.1-2.0); Eosinophils # 0.1 K/mm3 (0.0-0.4); Eosinophils % 1.3 % (0.1-12.0); Hematocrit 34.2 % (42.0-52.0); Hemoglobin 9.9 g/dL (14.1-18.0); Lymphocytes # 1.1 K/mm3 (0.7-4.5); Lymphocytes % 17.2 % (10-50); Mean Corpuscular HGB Conc 28.8 g/dL (31.8-35.4); Mean Corpuscular Hemoglobin 24.5 pg (27.0-31.2); Mean Corpuscular Volume 85.1 fl (80-94); Monocytes # 0.5 K/mm3 (0.1-1.0); Monocytes % 8.6 % (1.7-9.3); Neutrophils # 4.4 K/mm3 (1.8-7.8); Neutrophils % 72.4 % (37.0-80.0); Platelet Count 228 K/mm3 (142-424); Red Blood Count 4.02 M/mm3 (4.60-6.20); White Blood Count 6.1 K/mm3 (4.8-10.8)
[2024-01-18 21:46] LABS: Albumin Level 4.1 g/dl (3.5-5.0); Chloride 110 mmol/L (98-107)
[2024-01-18 21:47] LABS: Potassium 3.5 mmoL/L (3.5-5.1); Sodium 144 mmol/L (136-145)
[2024-01-18 21:49] LABS: Alanine Aminotransferase 39 U/L (12-78); Anion Gap 11.5 mEq/L (5-15); Aspartate Amino Transferase 37 U/L (17-59); Blood Urea Nitrogen 22 mg/dl (9-20); Carbon Dioxide 26 mmol/L (22.0-30.0); Creatinine Clearance Estimated 91 mL/min (50-200); Estimated Glomerular Filt Rate 72 ml/min (>60); GFR (African American) 87 ML/MIN (>60)
[2024-01-18 21:50] LABS: Albumin/Globulin Ratio 1.3 (1.1-1.8); Alkaline Phosphatase 111 U/L (38-126); Bilirubin,Total 0.8 mg/dl (0.2-1.3); Calcium 8.5 mg/dl (8.4-10.2); Globulin 3.2 g/dL (1.3-3.2); Glucose 100 mg/dl (74-100); Total Protein,Serum 7.3 g/dl (6.3-8.2)
[2024-01-18 21:53] LABS: Activated Partial Thrombo Time 28.1 seconds (22.8-30.6); INR 1.22 (0.9-1.1); Prothrombin Time 13.4 seconds (10.1-12.5)
[2024-01-18 21:56] LABS: Magnesium 1.6 mg/dl (1.6-2.3)
[2024-01-18 22:00] LABS: NT Pro Brain Natriuretic Pep. 5990 pg/mL (0-450)
[2024-01-18 22:01] VITALS: BP 161/101; PULSE 86; RESP 28; O2SAT 98
[2024-01-18 22:03] LABS: Troponin I < 0.01 ng/ml (0.00-0.034)
[2024-01-18 22:04] LABS: Coronavirus 19, PCR Not Detected (NotDetected); Influenza A, PCR Not Detected (NotDetected); Influenza B, PCR Not Detected (NotDetected)
[2024-01-18 22:07] LABS: T4 (Thyroxine) 10.4 ug/dl (5.53-11.0)
[2024-01-18 22:19] LABS: D-Dimer 0.47 ug/mL (0.0-0.5)
[2024-01-18 22:20] LABS: Thyroid Stimulating Hormone 1.26 uIU/mL (0.465-4.68)
[2024-01-18 23:03] VITALS: PULSE 90
--- NOTE | 2024-01-18 23:46 | PC.NURSE ---
Ambulated patient without oxygen for approximately 75ft. Patient has unsteady gait and utilizes a cane at home. Patient reports improvement in work of breathing. Spo2 remains above 93% during the duration of the exertion test. Notified provider.
[2024-01-19 00:08] VITALS: BP 173/84; PULSE 87; RESP 25; TEMP 36.7; O2SAT 93
== END 2024-01-19 00:11 | disposition home or self-care (01) ==
PROVIDERS: Emergency Provider Emergency Medicine; PCP Family Medicine
DX: R06.02 Shortness of breath (principal); R06.2 Wheezing; I50.9 Heart failure, unspecified; J20.9 Acute bronchitis, unspecified; I48.0 Paroxysmal atrial fibrillation; Z79.01 Long term (current) use of anticoagulants
CPT/HCPCS: 71045; 80053; 82803; 83735; 83880; 84436; 84443; 84484; 85025; 85378; 85610; 85730; 87636; 93005; 96374; 99284; J2919; J7620

== ENCOUNTER 2024-02-17 08:13 | Outpatient (CLI) | payer MEDICARE, SELFPAY ==
--- NOTE | 2024-02-17 | CA_ITS ---
APPROVED REPORT EXAM: Comprehensive 2D, Doppler, and color-flow Echocardiogram Ocean Biologist: Elvi Humphrey, RCS, RVS Ht: 6 ft 0 in Wt: 240lbs BSA: 2.30 BP: 173/84 mmHg Indications: SOA, Chronic Afib, CAD-coronary stents, HTN, Edema, Fatigue 2D Dimensions Aortic Root 3.54 cm LA Volume 109.70 mL Left Atrium 3.98 cm LA Volume Index 47.623484 mL/m2 (M/F) 16-34 RVID Base (AP4) 5.01 cm (M/F) 2.5-4.1 EF AP4 40.20 % LVOT 2.17 cm (M/F) 1.5-2.5 GL Strain -11.3 % M-Mode Dimensions RVDd 3.10 cm (0.9-2.6) LVDd 5.02 cm (3.5-5.7) Ao Diam 3.68 cm (2.0-3.7) LVDs 3.02 cm (3.5-5.7) IVSd 0.98 cm (0.6-1.1) PWd 0.94 cm (0.6-1.1) EF (Teich) 70.20% EPSs 0.64 cm FS 39.80% EDV (Teich) 119.30 mL TAPSE 1.91 (<1.7) ESV (Teich) 35.60 mL LV Diastology E Decel Time 158 (160-240 msec) E/A Ratio 4.27 MED E' 6.2 (>= 7 cm/sec) MED A' 5.40 cm/s E'/MED E' Ratio 14.55 (<= 14) LAT E' 7.6 (>= 10 cm/sec) LAT A' 3.80 cm/s E/LAT E' Ratio 11.87 (<= 14) Aortic Valve LVOT Max 79.0 (70-110 cm/s) LUPIS Index 0.76 cm2/m2 LVOT VTI 15.15 cm AoV Peak Delbert. 171.0 (50-130 cm/s) AI PHT 526.00 ms AO Peak GR. 10.20 mmHg AO Mean GR. 6.40 (<5 mmHg) AO VTI 32.1 (18-25 cm) LUPIS (VTI) 1.75 (2.5-4.5 cm2) Mitral Valve MV E Max Delbert. 90.0 (40-130 cm/s) MV A Velocity 21.0 (40-130 cm/s) E/A Ratio 4.27 MV Decel. Time 158 (160-240 ms) Tricuspid Valve TR P. Velocity 282.00 cm/s RAP Estimate 10.00 mmHg RVSP 41.90 mmHg Left Ventricle The left ventricle is normal size. The left ventricular systolic function is normal. The left ventricular ejection fraction is within the normal range. There is increased LV wall thickness. There is normal LV segmental wall motion. Diastolic function is indeterminate. LVEF is 55%. Right Ventricle The right ventricle is moderately dilated. Right ventricle is mildly hypokinetic. Atria Left atrium is severely dilated. Right atrium is severely dilated. There is no Doppler evidence of interatrial shunt. Aortic Valve The aortic valve is mildly thickened. There is no aortic valvular stenosis. Mild aortic regurgitation. Mitral Valve The mitral valve leaflets are mildly thickened. No evidence of mitral valve stenosis. Mild mitral regurgitation. Tricuspid Valve The tricuspid valve leaflets are thin and pliable. Mild tricuspid regurgitation. RVSP is 30-35 mmHg. Pulmonic Valve The pulmonary valve is normal in structure. Mild pulmonic regurgitation. Great Vessels The aortic root is normal in size. The ascending aorta is not well-visualized. IVC is normal in size and collapses >50% with inspiration. Pericardium There is no pericardial effusion. Other Information Study Quality: Fair Conclusion Normal LV systolic function. Moderate RV dilation with mild reduction in RV function. Severe biatrial dilation. Mild MR, mild TR, mild AI, mild PI. RVSP 30-35 mmHg. Electronically signed by : Ludivina García MD 02/17/2024 11:53:58
== END 2024-02-17 23:59 | disposition home or self-care (01) ==
LOC: RT 08:15
PROVIDERS: PCP Family Medicine; Visit Provider Family Medicine
DX: I51.7 Cardiomegaly (principal); I35.1 Nonrheumatic aortic (valve) insufficiency; I34.0 Nonrheumatic mitral (valve) insufficiency; I37.1 Nonrheumatic pulmonary valve insufficiency; I50.23 Acute on chronic systolic (congestive) heart failure
CPT/HCPCS: 93306

== ENCOUNTER 2025-01-20 10:08 | Outpatient (CLI) | payer MEDICARE, SELFPAY ==
--- OUTSIDE RECORDS SUMMARY | 2024-06-13 07:45 | XMS_ITS ---
Author Organization [facility] Address [address] [facility] [facility] [address] [place] [id number] Care Team Providers Care Instrumentation Supervisor Name Role Phone Herman Salmeron Primary Care Provider [phone] REASON FOR VISIT 2 Month Follow Up Encounters Encounter Location Date Provider Diagnosis [facility] [address] [facility] [address] [place] [id number] 06/13/2024 Herman Salmeron Plan Of Treatment Next Appt Details Provider Name:Herman Calderón er, 01/30/2025 02:45:00 PM, [address], [address], [place], [place], [id number], Progress Notes * PREETIMt RAMÍREZDOB: 4 (79 yo M)Acc No.[id number]:06/13/2024 Progress Notes Patient: Mt CORTES Provider: Herman Salmeron M.D. :1945 A ge:78 Y S ex:Male Date:06/13/2024 Address:[address] [place] [address], [id number] Subjective: * Chief Complaints: * 1 . 2 Month Follow Up. * Medical History: Objective: * Vitals: Assessment: Plan: * Treatment: * Images: Billing Information: * Visit Code: * Procedure Codes: * Electronic signature of Herman Salmeron MD on 01/20/2025 at 10:11 AM EDT Sign off status: Pending * Provider: Herman Salmeron M.D. Date: 0 06/13/2024 Generated for Raul owens/Lucero/Lavon on: 0 01/20/2025 10:11 AM EDT
--- OUTSIDE RECORDS SUMMARY | 2024-06-17 04:00 | XMS_ITS ---
Author Organization [facility] [place] Address [address] [facility] [id number] Care Team Providers Care Hostess Host Name Role Phone Herman Salmeron Primary Care Provider Allergies No Known Allergies Medications Medication SIG (Take, Route, Frequency, Duration) Notes Start Date End Date Status Jardiance 10 MG 1 tablet Orally Once a day; Duration: 30 day(s) 05/28/2023 Not-Chet ing Furosemide 20 MG 2 orally once a day 08/21/2020 Active QUEtiapine Fumarate 25 MG TAKE 1 TABLET BY MOUTH EVERY DAY AT BEDTIME FOR 30 DAYS; Duration: 90 Active Atorvastatin Calcium 20 MG 1 tablet Orally Once a day; Duration: 90 days Active Lisinopril 40 MG TAKE 1 TABLET BY SIMRAN EVERY DAY FOR 90 DAYS; Duration: 90 Active Carvedilol 25 MG TAKE 1 TABLET BY SIMRAN TH TWICE A DAY FOR 90 DAYS; Duration: 90 days Active Omeprazole 20 MG TAKE 1 CAPSULE BY [facility] AT BEDTIME; Duration: 90 days Active Potassium Chloride ER 10 MEQ TAKE 1 CAPSULE BY MOUTH TWICE A DAY WITH FOOD FOR 30 DAYS; Duration: 90 Active Triamterene-HCTZ 37.5-25 MG 1 tab(s) orally once a day; Duration: 90 days Active Allopurinol 300 MG 1 tab(s) orally once a day; Duration: 90 days Active Nitrostat 0.4 MG 1 tab(s) sublinguall y every 5 minutes prn chest pain; Duration: 30 Active Sertraline HCl 100 MG TAKE 1 TABLET BY [facility] TWICE A DAY; Duration: 90 Active Aspirin 81 MG 1 tab(s) orally once a day; Duration: 30 day(s) Active Eliquis 5 MG 1 tab(s) orally 2 ti mes a day Active Doxazosin Mesylate 2 MG TAKE 2 TABLETS B Y MOUTH DAILY AT BEDTIME 90; Duration: 90 Active Vital Signs Blood pressure systolic 140 mm Hg 06/17/19 25 Blood pressure diastolic 70 mm Hg 025 Heart Rate 74 /min 06/17/2024 Height 72 in 06/17/2024 Weight 246.0 lbs 06/17/2024 BMI 33.36 kg/m2 06/17/2024 Encounters Encounter Location Date Provider Diagnosis [facility] [address] [facility] [address] [facility] [address] [place] [id number] 06/17/2024 Herman Salmeron Sebaceous cyst L72.3 Assessments Encounter Date Diagnosis (ICD Code) Assessment Notes Treatment Notes Treatment Clinical Notes Section Notes 06/17/2024 Sebaceous cyst (ICD-10 - L72.3) Plan Of Treatment Next Appt Details Follow Up: 1 Week, Reason: Provider Name:Herman Calderón er, 01/30/2025 02:45:00 PM, [address] [facility] [address] [facility], [address], [place], [place], [id number], Progress Notes * EMMANUEL MtDOB: 4 (79 yo M)Acc No.[id number]:06/17/2024 Progress Notes Patient: Mt CORTES Provider: Herman Salmeron M.D. :1945 A ge:78 Y S ex:Male Date:06/17/2024 Address:[address] [place] [address] [facility], [id number] Subjective: * Chief Complaints: * * HPI: D ermatology: 78 year old male presents with c/o cyst T he pt is here for a minor surgery to remove a sebaceous cyst of the neck shoulder that is irritating patient and increasing in size and effecting range of motion. Pt states he is doing very good and denies any new concerns. * ROS: C ARDIOLOGY: no C hest pain. n o S hortness of breath. ? G ASTROENTEROLOGY: no N ausea. n o V omiting. n o D iarrhea.? U ROLOGY: no D ifficulty urinating. n o B lood in urine. * Medical History: H yperlipidemia , Acid Reflux , Hypertension, 06/29/11 Testosterone WNL, Prevnar 02/2018 [facility], Pneumovax ca, 2013, COVID 19 Vaccine, Pfizer Jun 292020. * Family History: F ather: , hit by a truck. M other: , liver cancer. S iblings: alive 64 yrs, diabetes, quad by pass surgery. 1 brother(s) . . Pt has one brother due to kidney failure at age 74. Pt has two sisters that are due to diabetes, heart disease, and lung cancer both were around 70 years old. * Social History: C URRENT TOBACCO USE S moking Status: Patient does smoke, Smoking preference: cigars. C affeine: yes, frequency: 2 cups of coffee QD. Home smoke detector use: yes. Past smoking status: yes, PPD: , years: ,determination: Pt smokes cigars on occasion. Alcohol: Yes, Type: [place], Vodka , Frequency: maybe two drinks a night on occasion ,Years: , Determination:. * Medications: T aking Aspirin 81 MG Tablet Delayed Release 1 tab(s) orally once a day , Taking Eliquis 5 MG Tablet 1 tab(s) orally 2 times a day , Taking Doxazosin Mesylate 2 MG Tablet TAKE 2 TABLETS BY MOUTH DAILY AT BEDTIME 90 , Taking Nitrostat 0.4 MG Tablet Sublingual 1 tab(s) sublingually every 5 minutes prn chest pain , Taking Sertraline HCl 100 MG Tablet TAKE 1 TABLET BY MOUTH TWICE A DAY , Taking Carvedilol 25 MG Tablet TAKE 1 TABLET BY MOUTH TWICE A DAY FOR 90 DAYS , Taking Omeprazole 20 MG Capsule Delayed Release TAKE 1 CAPSULE BY MOUTH AT BEDTIME , Taking Potassium Chloride ER 10 MEQ Capsule Extended Release TAKE 1 CAPSULE BY MOUTH TWICE A DAY WITH FOOD FOR 30 DAYS , Taking Triamterene-HCTZ 37.5-25 MG Tablet 1 tab(s) orally once a day , Taking Allopurinol 300 MG Tablet 1 tab(s) orally once a day , Taking Furosemide 20 MG Tablet 2 orally once a day , Taking QUEtiapine Fumarate 25 MG Tablet TAKE 1 TABLET BY MOUTH EVERY DAY AT BEDTIME FOR 30 DAYS , Taking Atorvastatin Calcium 20 MG Tablet 1 tablet Orally Once a day , Taking Lisinopril 40 MG Tablet TAKE 1 TABLET BY MOUTH EVERY DAY FOR 90 DAYS , Not-Taking Jardiance 10 MG Tablet 1 tablet Orally Once a day , Medication List reviewed and reconciled with the patient * Allergies: N .K.D.A. Objective: * Vitals: W t:246.0, Temp:97.9, BP:140/70, HR:74, O2 Sat:99% on RA, Nurse:MICHAELA, Ht: 72, BMI:33.36. * Physical Examination: Drawing:[id number] Assessment: * Assessment: 1. S ebaceous cyst - L72.3 (Primary) Plan: * Treatment: * Procedure Codes: G 2211 Complex e/[place], [address] EXCISION BENIGN LESION,SCALP,NECK,HANDS,FEET 1.1 TO 2.0 CM * Follow Up: 1 Week * Images: Billing Information: * Visit Code: 97871 Office Visit, Est Pt., Level 2. Modifiers: 25 * Procedure Codes: G2211 Complex e/[place]. [address] EXCISION BENIGN LESION,SCALP,NECK,HANDS,FEET 1.1 TO 2.0 CM. * Electronic signature of Herman Salmeron MD on 01/20/2025 at 10:11 AM EDT Sign off status: Pending * Provider: Herman Salmeron M.D. Date: 0 06/17/2024 Generated for Raul owens/Lucero/Charletteitting on: 0 01/20/2025 10:11 AM EDT History and Physical Notes * HPI (History of Present Illness) Category Sub-Category Detail Notes Category Not es Dermatology cyst The pt is here f or a minor surgery to remove a sebaceous cyst of the neck shoulder that is irritating patient and increasing in size and effecting range of motion. Pt states he is doing very good and denies any new concerns
--- OUTSIDE RECORDS SUMMARY | 2024-06-27 06:15 | XMS_ITS ---
Author Organization [facility] Address [address] [place] [address] [address] [place], [place] [id number] Care Team Providers Care Trimmer Helper Name Role Phone Herman Salmeron Primary Care Provider Antionette Patino Unavailable [phone] Allergies No Known Allergies REASON FOR VISIT Stitch removal Vital Signs Weight 245.2 lbs 06/27/2024 Blood pressure systolic 126 mm Hg 06/27/19 25 Blood pressure diastolic 70 mm Hg 025 Heart Rate 51 /min 06/27/2024 Height 72 in 06/27/2024 BMI 33.25 kg/m2 06/27/2024 Encounters Encounter Location Date Provider Diagnosis [facility] [address] [place] [address] [address] [place] [id number] 06/27/2024 Antionette Patino Wound of skin R23.8 Assessments Encounter Date Diagnosis (ICD Code) Assessment Notes Treatment Notes Treatment Clinical Notes Section Notes 06/27/2024 Wound of skin (ICD-10 - R23.8) wash gently with soap and water starting tomorrow Plan Of Treatment Treatment Notes Assessment Notes Wound of skin wash gently with soa p and water starting tomorrow Next Appt Details Provider Name:Herman Calderón er, 01/30/2025 02:45:00 PM, [address], [address], [place], [place], [id number], Progress Notes * Mt BENITEZDOB: 4 (79 yo M)Acc No.[id number]:06/27/2024 Patient: Mt CORTES Provider: DIPTI Torres :1945 A ge:78 Y S ex:Male Date:06/27/2024 Address:[place], [id number] Pcp:Herman Salmeron Subjective: * Chief Complaints: * 1 . Stitch removal. * HPI: D ermatology: 78 year old male presents with c/o stitch removal P t is here today for stitch removal. Pt has stitches on the left side of his neck that he needs taken out today. Pt sts he got them about a week ago by Dr. Salmeron. no signs of infection. * ROS: C ARDIOLOGY: no C hest [...] smokes cigars on occasion. Alcohol: Yes, Type: [place], Vodka , Frequency: maybe two drinks a night on occasion ,Years: , Determination:. * Medications: N one * Allergies: N .K.D.A. Objective: * Vitals: W t:245.2, Temp:98.5, BP:126/70, HR:51, O2 Sat:80% on RA, Nurse:MMJean Paul, Ht: 72, BMI:33.25. * Examination: G eneral Examination: General Appearance: NAD, appears healthy, alert, pleasant. N eurologic Exam: alert and oriented. S kin: w ell healed left lower neck wound clean and healed with 3 sutures; removed and covered with band aid. Assessment: * Assessment: 1. W ound of skin - R23.8 (Primary) S pecify :post op cyst removal-suture removal Plan: * Treatment: * Images: Billing Information: * Visit Code: * Procedure Codes: * Electronic signature of Nelly Patino APRN on 01/20/2025 at 10:12 AM EDT Sign off status: Pending * Provider: DIPTI Torres Date: 0 06/27/2024 Generated for Raul owens/Lucero/Charletteitting on: 0 01/20/2025 10:12 AM EDT History and Physical Notes * HPI (History of Present Illness) Category Sub-Category Detail Notes Category Not es Dermatology stitch removal Pt is here today for stitch removal. Pt has stitches on the left side of his neck that he needs taken out today. Pt sts he got them about a week ago by Dr. Salmeron no signs of infection Examination Category Sub-Category Detail Notes Category Not es General Examination General Appearance: NAD, arturo ears healthy, alert, pleasant Skin: well healed left low er neck wound clean and healed with 3 sutures; removed and covered with band aid Neurologic Exam: alert and oriented
--- OUTSIDE RECORDS SUMMARY | 2025-01-11 04:25 | XMS_ITS ---
Author Organization [facility] Address [address] [facility] [address] [place], [place] [address] Care Team Providers Care Operational Review Sergeant Name Role Phone Herman Salmeron Primary Care Provider [phone] FranklinIveth sanon Unavailable [phone] Results Component Value Reference Range Notes P-Comprehensive Metabolic Pa aimee (CMP) (Not yet reviewed by provider) Interpretation: Performing Lab: Notes/Report: Test performed by [facility] [employer] , [address], [place] [address] Juan Recinos MD, Beater Room Helper CLIA: [id number] Sodium 142 135-145 mmol/L Potassium 4.8 3.5-5.3 mmol/L Chloride 104 97-108 mmol/L CO2 25 20-32 mmol/L Glucose 96 65-99 mg/dL BUN 20 8-23 mg/dL Creatinine 1.16 0.70-1.30 mg/dL Calcium 9.4 8.6-10.4 mg/dL eGFR by Creatinine 63 >59 mL/min/1.73m2 Protein 7.6 6.0-8.3 g/dL Albumin 4.4 3.5-5.3 g/dL Alkaline Phosphatase 83 40-129 IU/L ALT (SGPT) 13 <5-55 IU/L AST (SGOT) 17 <5-46 IU/L Bilirubin, Total 0.6 <0.2-1.2 mg/dL A/G Ratio 1.4 1.1-2.5 P-Lipid Panel (Not yet revie wed by provider) Interpretation: Performing Lab: Notes/Report: Test performed by [facility] , [address], [place] [address] Juan Recinos MD, Beater Room Helper CLIA: [id number] Cholesterol 137 <200 mg/dL Triglycerides 155 <150 mg/dL HDL Cholesterol 28 >39 mg/dL Cholesterol / HDL Ratio 4.89 0.00-4.99 Ratio Non-HDL Cholesterol 109 <130 mg/dL LDL Cholesterol (Calculation) 78 <130 mg/dL LDL Cholesterol Levels* Less than 100 mg/dL Optimal 100 to 129 mg/dL Near Optimal/ Above Optimal 130 to 159 mg/dL Borderline High 160 to 189 mg/dL High 190 mg/dL and above Very High * Categories as recommended by the 2004 ATPIII guidelines LDL/HDL Ratio 2.8 <3.3 Ratio LDL Cholesterol Patient History Test Date: 02/29/2024 LDL Results: 38 Units: mg/dL % Change: - Test Date: 01/11/2025 LDL Results: 78 Units: mg/dL % Change: +105% REASON FOR VISIT blood work Medications Medication SIG (Take, Route, Frequency, Duration) Notes Start Date End Date Status Atorvastatin Calcium 20 MG 1 tablet Orally Once a day Active Lisinopril 40 MG TAKE 1 TABLET BY SIMRAN TH EVERY DAY FOR 90 DAYS Active Furosemide 20 MG 2 orally once a day 08/21/2020 Active Sertraline HCl 100 MG TAKE 1 TABLET BY M OUTH TWICE A DAY; Duration: 90 Active Allopurinol 300 MG TAKE 1 TABLET BY SIMRAN TH EVERY DAY FOR 90 DAYS; Duration: 90 Active Aspirin 81 MG 1 tab(s) orally once a day Active Eliquis 5 MG 1 tab(s) orally 2 ti mes a day Active QUEtiapine Fumarate 25 MG 1 tablet at be dtiny Orally Once a day; Duration: 90 days Active Omeprazole 20 MG TAKE 1 CAPSULE BY MO UTH AT BEDTIME; Duration: 90 Active Doxazosin Mesylate 2 MG TAKE 2 TABLETS B Y MOUTH DAILY AT BEDTIME 90 Active Potassium Chloride ER 10 MEQ TAKE 1 CAPSULE BY MOUTH TWICE A DAY WITH FOOD FOR 30 DAYS Active Omeprazole 20 MG TAKE 1 CAPSULE BY MO UTH AT BEDTIME Active Sertraline HCl 100 MG TAKE 1 TABLET BY M OUTH TWICE A DAY Active Carvedilol 25 MG 1 tablet with food O rally Twice a day; Duration: 90 days Active Nitrostat 0.4 MG 1 tab(s) sublinguall y every 5 minutes prn chest pain Active Triamterene-HCTZ 37.5-25 MG 1 tab(s) orally once a day A ctive Allopurinol 300 MG 1 tab(s) orally once a day Active Encounters Encounter Location Date Provider Diagnosis [facility] [address], [place] [id number] 01/11/2025 Iveth Zuniga Essential hypertensi on I10 and Mixed hyperlipidemia E78.2 Assessments Encounter Date Diagnosis (ICD Code) Assessment Notes Treatment Notes Treatment Clinical Notes Section Notes 01/11/2025 Essential hypertension (ICD-10 - I10) 01/11/2025 Mixed hyperlipidemia (ICD-10 - E78.2) Plan Of Treatment Pending Test Test Name Order Date P-Comprehensive Metabolic Panel (CMP) P-Lipid Panel 01/11/2025 Next Appt Details Provider Name:Herman Calderón er, 01/30/2025 02:45:00 PM, [address], [address], [place], [place], [id number], Progress Notes * Mt BENITEZDOB: [birth year] (79 yo M)Acc No.[id number]:01/11/2025 Patient: Mt CORTES Provider: AMIE Keith :1945 A ge:79 Y S ex:Male Date:01/11/2025 Address:[address] [place] [address], [place], [id number] Pcp:Herman Salmeron Subjective: * Chief Complaints: * 1 . Blood work. * Medical History: * Medications: T aking Omeprazole 20 MG Capsule Delayed Release TAKE 1 CAPSULE BY MOUTH AT BEDTIME , Taking Allopurinol 300 MG Tablet TAKE 1 TABLET BY MOUTH EVERY DAY FOR 90 DAYS , Taking Sertraline HCl 100 MG Tablet TAKE 1 TABLET BY MOUTH TWICE A DAY , Taking Lisinopril 40 MG Tablet TAKE 1 TABLET BY MOUTH EVERY DAY FOR 90 DAYS , Taking Atorvastatin Calcium 20 MG Tablet 1 tablet Orally Once a day , Taking Furosemide 20 MG Tablet 2 orally once a day , Taking Allopurinol 300 MG Tablet 1 tab(s) orally once a day , Taking Triamterene-HCTZ 37.5-25 MG Tablet 1 tab(s) orally once a day , Taking Potassium Chloride ER 10 MEQ Capsule Extended Release TAKE 1 CAPSULE BY MOUTH TWICE A DAY WITH FOOD FOR 30 DAYS , Taking Omeprazole 20 MG Capsule Delayed Release TAKE 1 CAPSULE BY MOUTH AT BEDTIME , Taking Carvedilol 25 MG Tablet 1 tablet with food Orally Twice a day , Taking Sertraline HCl 100 MG Tablet TAKE 1 TABLET BY MOUTH TWICE A DAY , Taking Nitrostat 0.4 MG Tablet Sublingual 1 tab(s) sublingually every 5 minutes prn chest pain , Taking Doxazosin Mesylate 2 MG Tablet TAKE 2 TABLETS BY MOUTH DAILY AT BEDTIME 90 , Taking Eliquis 5 MG Tablet 1 tab(s) orally 2 times a day , Taking Aspirin 81 MG Tablet Delayed Release 1 tab(s) orally once a day , Taking QUEtiapine Fumarate 25 MG Tablet 1 tablet at bedtime Orally Once a day , Medication List reviewed and reconciled with the patient Objective: * Vitals: Assessment: * Assessment: 1. E ssential hypertension - I10 (Primary) 2 . M ixed hyperlipidemia - E78.2 Plan: * Treatment: Value Reference Range A /G Ratio 1.4 1.1-2.5 - * A lbumin 4.4 3.5-5.3 - g/dL * A lkaline Phosphatase 83 40-129 - IU/L * A LT (SGPT) 13 <5-55 - IU/L * A ST (SGOT) 17 <5-46 - IU/L * B ilirubin, Total 0.6 <0.2-1.2 - mg/dL * B UN 20 8-23 - mg/dL * C alcium 9.4 8.6-10.4 - mg/dL * C hloride 104 97-108 - mmol/L * C O2 25 20-32 - mmol/L * C reatinine 1.16 0.70-1.30 - mg/dL * G lucose 96 65-99 - mg/dL * P otassium 4.8 3.5-5.3 - mmol/L * S odium 142 135-145 - mmol/L * P rotein 7.6 6.0-8.3 - g/dL * e GFR by Creatinine 63 >59 - mL/min/1.73m2 2.?Mixed hyperlipidemia?LAB: P-Lipid Panel (Collection Date & Time - 01/11/2025 08:14 AM)* Value Reference Range C holesterol / HDL Ratio 4.89 0.00-4.99 - Ratio * C holesterol 137 <200 - mg/dL * H DL Cholesterol 28 L >39 - mg/dL * L DL Cholesterol (Calculation) 78 <130 - mg/d L * L DL/HDL Ratio 2.8 <3.3 - Ratio * N on-HDL Cholesterol 109 <130 - mg/dL * T riglycerides 155 H <150 - mg/dL * Images: Billing Information: * Visit Code: * Procedure Codes: * Electronic signature of AMIE Snowden on 01/20/2025 at 10:12 AM EDT Sign off status: Pending * Provider: AMIE Keith Date: 01/11/2025 Generated for Cri ng/Fajimmyg/eTransmitting on: 0 01/20/2025 10:12 AM EDT
--- OUTSIDE RECORDS SUMMARY | 2025-01-16 10:15 | XMS_ITS ---
Author Organization [facility] Address [address] [facility] [address] [id number] Care Team Providers Care Knitting Machine Operator Name Role Phone Herman Salmeron Primary Care Provider [phone] Allergies No Known Allergies REASON FOR VISIT check up, Needs Prevnar vaccine Medications Medication SIG (Take, Route, Frequency, Duration) Notes Start Date End Date Status Allopurinol 300 MG 1 tab(s) orally once a day Not-Taking Sertraline HCl 100 MG TAKE 1 TABLET BY M OUTH TWICE A DAY; Duration: 90 Not-Taking Atorvastatin Calcium 20 MG 1 tablet Orally Once a day Not-Taking Doxazosin Mesylate 2 MG TAKE 2 TABLETS B Y MOUTH DAILY AT BEDTIME 90 Not-Taking QUEtiapine Fumarate 25 MG 1 tablet at bedtime Orally Once a day; Duration: 90 days Not-Taking Aspirin 81 MG 1 tab(s) orally once a day Active Allopurinol 300 MG TAKE 1 TABLET BY SIMRAN TH EVERY DAY FOR 90 DAYS; Duration: 90 Not-Taking Nitrostat 0.4 MG 1 tab(s) sublinguall y every 5 minutes prn chest pain Active Eliquis 5 MG 1 tab(s) orally 2 ti mes a day Active Sertraline HCl 100 MG TAKE 1 TABLET BY M OUTH TWICE A DAY Active Furosemide 20 MG 2 orally once a day 08/21/2020 Active Lisinopril 40 MG TAKE 1 TABLET BY SIMRAN TH EVERY DAY FOR 90 DAYS Active Carvedilol 25 MG 1 tablet with food Orally Twice a day; Duration: 90 days Active Triamterene-HCTZ 37.5-25 MG 1 tab(s) orally once a day Active Potassium Chloride ER 10 MEQ TAKE 1 CAPSULE BY MOUTH TWICE A DAY WITH FOOD FOR 30 DAYS Active Omeprazole 20 MG TAKE 1 CAPSULE BY [facility] AT BEDTIME; Duration: 90 Active Meclizine HCl 12.5 MG 1 tablet as needed Orally 3 times a day as needed 01/16/2025 Active Problems Problem Type SNOMED Code ICD Code Onset Dates Problem Status W/U Status Risk Notes Problem Abnormal gait (39931446) Imbalance (R26.89) Active confirmed Problem Peripheral circulatory disorder associated with diabetes mellitus (604412491) Type 2 diabetes mellitus with other circulatory complications (E11.59) Active confirmed Problem Type 2 diabetes mellitus with other specified complication, unspecified whether snf insulin use (E11.69) Active confirmed Problem Hypertensive heart failure (20054292) Hypertensive heart disease with heart failure (I11.0) Active confirmed Problem Body mass index 30.00 to 34.99 ([id number] ) BMI 34.0-34.9,adult (Z68.34) Active confirmed Vital Signs Weight 253.8 lbs 01/16/2025 Blood pressure systolic 142 mm Hg 01/17/20 25 Blood pressure diastolic 90 mm Hg 025 Heart Rate 67 /min 01/16/2025 Height 72 in 01/16/2025 BMI 34.42 kg/m2 01/16/2025 Encounters Encounter Location Date Provider Diagnosis [facility] [facility] [address] [id number] 01/16/2025 Herman Salmeron Imbalance R26.89 ; Persistent atrial fibrillation I48.19 ; Status post right knee replacement Z96.651 ; long term (current) use of anticoagulants Z79.01 ; Diastolic CHF, chronic I50.32 ; Mixed hyperlipidemia E78.2 ; Essential hypertension I10 ; Cardiomyopathy, unspecified type I42.9 ; Type 2 diabetes mellitus with other circulatory complications E11.59 ; Type 2 diabetes mellitus with other specified complication, unspecified whether snf insulin use E11.69 ; Hypertensive heart disease with heart failure I11.0 ; Atrial fibrillation, unspecified type I48.91 and BMI 34.0-34.9,adult Z68.34 Assessments Encounter Date Diagnosis (ICD Code) Assessment Notes Treatment Notes Treatment Clinical Notes Section Notes 01/16/2025 Imbalance (ICD-10 - R26.89) 01/16/2025 Persistent atrial fibrillation (ICD-10 - I48.19) 01/16/2025 Status post right knee replacement (ICD-10 - Z96.651) 01/16/2025 long term (current) use of anticoagulants (ICD-10 - Z79.01) 01/16/2025 Diastolic CHF, chronic (ICD-10 - I50.32) 01/16/2025 Mixed hyperlipidemia (ICD-10 - E78.2) 01/16/2025 Essential hypertension (ICD-10 - I10) 01/16/2025 Cardiomyopathy, unspecified type (ICD-10 - I42.9) 01/16/2025 Type 2 diabetes mellitus with other circulatory complications (ICD-10 - E11.59) 01/16/2025 Type 2 diabetes mellitus with other specified complication, unspecified whether snf insulin use (ICD-10 - E11.69) 01/16/2025 Hypertensive heart disease with heart failure (ICD-10 - I11.0) 01/16/2025 Atrial fibrillation, unspecified type (ICD-10 - I48.91) 01/16/2025 BMI 34.0-34.9,adult (ICD-10 - Z68.34) Plan Of Treatment Medication Medication Name Sig Start Date Stop Date Notes Meclizine HCl 12.5 MG 1 tablet as needed Orally 3 times a day as needed 01/16/2025 Pending Test Test Name Order Date Carotid Duplex 01/16/2025 MRI : Brain w/o contrast 01/16/2025 Next Appt Details Follow Up: 2 Weeks, Reason: Provider Name:Herman Calderón , 01/30/2025 02:45:00 PM, [address] [facility] 36 [facility], [address] , [place], [place], [id number], Progress Notes * Mt BENITEZDOB: [birth year] (79 yo M)Acc No.[id number]:01/16/2025 Progress Notes Patient: Mt CORTES Provider: Herman Salmeron M.D. :1945 A ge:79 Y S ex:Male Date:01/16/2025 Address:[address] [place] [address], [id number] Subjective: * Chief Complaints: * 1 . Check up. 2. Needs Prevnar vaccine. * HPI: C ardiology: The patient is here for a check on Hypertension and Hyperlipidemia. Pt states he doing good except for the continued imbalance. Pt states he had his blood work done fasting on 01/11/25. HAS BEEN OFF STATIN FOR ONE MONTH. Denies : Chest Pain. D enies : Short of Breath. D enies : Dizziness. D enies : Palpitations. E NT/respiratory: Had ear infection and dizziness. Had antibiotics prescribed per [place]. N eurology: His main complaint is balance issues. Took methylene blue for 4 days and felt better but quit when he started to pee blue. Asks about Meclizine. * ROS: C ARDIOLOGY: no C hest [...] smokes cigars on occasion. Alcohol: Yes, Type: Perry, Vodka , Frequency: maybe two drinks a night on occasion ,Years: , Determination:. * Medications: T aking Omeprazole 20 MG Capsule Delayed Release TAKE 1 CAPSULE BY MOUTH AT BEDTIME , Taking Lisinopril 40 MG Tablet TAKE 1 TABLET BY MOUTH EVERY DAY FOR 90 DAYS , Taking Furosemide 20 MG Tablet 2 orally once a day , Taking Triamterene-HCTZ 37.5-25 MG Tablet 1 tab(s) orally once a day , Taking Potassium Chloride ER 10 MEQ Capsule Extended Release TAKE 1 CAPSULE BY MOUTH TWICE A DAY WITH FOOD FOR 30 DAYS , Taking Carvedilol 25 MG Tablet 1 tablet with food Orally Twice a day , Taking Sertraline HCl 100 MG Tablet TAKE 1 TABLET BY MOUTH TWICE A DAY , Taking Nitrostat 0.4 MG Tablet Sublingual 1 tab(s) sublingually every 5 minutes prn chest pain , Taking Eliquis 5 MG Tablet 1 tab(s) orally 2 times a day , Taking Aspirin 81 MG Tablet Delayed Release 1 tab(s) orally once a day , Not-Taking Allopurinol 300 MG Tablet TAKE 1 TABLET BY MOUTH EVERY DAY FOR 90 DAYS , Not-Taking Sertraline HCl 100 MG Tablet TAKE 1 TABLET BY MOUTH TWICE A DAY , Not-Taking Atorvastatin Calcium 20 MG Tablet 1 tablet Orally Once a day , Not-Taking Allopurinol 300 MG Tablet 1 tab(s) orally once a day , Not-Taking Doxazosin Mesylate 2 MG Tablet TAKE 2 TABLETS BY MOUTH DAILY AT BEDTIME 90 , Not-Taking QUEtiapine Fumarate 25 MG Tablet 1 tablet at bedtime Orally Once a day , Medication List reviewed and reconciled with the patient * Allergies: N .K.D.A. Objective: * Vitals: W t: 253.8, Temp: 98.2, BP: 142/90, HR: 67, O2 Sat: 99% on RA, Nurse: MICHAELA, Ht: 72, BMI:34.42. * Examination: G eneral Examination: General Appearance: N AD, note weight loss. H EENT:?unremarkable. O ral cavity: n o lesions, mucosa moist and WNL, no erythema. N tori: ?supple, no lymphadenopathy, no carotid bruits. C hest: n ormal shape and expansion. H eart: irregular rhythm. L ungs: c lear to auscultation. A bdomen: soft and nontender, no organomegaly or masses. N eurologic Exam: I ntact, uses cane, not bad on [place]om[place]. S kin: w ound of back is healed. P eripheral pulses: n ormal . B ack: m ild dorsal kyphosis. E xtremities: l eg edema is improved. Assessment: * Assessment: 1. I mbalance - R26.89 (Primary) 2 . P ersistent atrial fibrillation - I48.19 3 . S tatus post right knee replacement - Z96.651 4 . L brittny term (current) use of anticoagulants - Z79.01 5 . D iastolic CHF, chronic - I50.32 6 . M ixed hyperlipidemia - E78.2 7 . E ssential hypertension - I10 8 . 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 Type 2 diabetes mellitus with other specified complication, unspecified whether snf insulin use - E11.69 1 1. H ypertensive heart disease with heart failure - I11.0 ? 1 2. A trial fibrillation, unspecified type - I48.91 1 3. B GA 34.0-34.9,adult - Z68.34 Plan: * Treatment: ?Imaging: MRI : Brain w/o contrast * Procedure Codes: G 2211 Complex e/m visit add on * Follow Up: 2 Weeks * Images: Billing Information: * Visit Code: 92747 Office Visit, Est Pt., Level 4. * Procedure Codes: G2211 Complex e/m visit add on. * Electronic signature of Herman Salmeron MD on 01/20/2025 at 10:12 AM EDT Sign off status: Pending * Provider: Herman Salmeron M.D. Date: 0 01/16/2025 Generated for Raul owens/Lucero/eTransmitting on: 0 01/20/2025 10:12 AM EDT History and Physical Notes * HPI (History of Present Illness) Category Sub-Category Detail Notes Category Not es Cardiology Short of Breath Chest Pain Palpitations Dizziness Examination Category Sub-Category Detail Notes Category Not es General Examination HEENT: unremarkable Heart: irregular rhythm Lungs: clear to auscultatio n Abdomen: soft and nontender, no organomegaly or masses Extremities: leg edema is improve d General Appearance: NAD, note weight los s Skin: wound of back is hea led Neurologic Exam: Intact, uses cane, n ot bad on [place] Neck: supple, no lymphaden opathy, no carotid bruits Oral cavity: no lesions, mucosa m oist and WNL, no erythema Peripheral pulses: normal Back: mild dorsal kyphosis Chest: normal shape and exp ansion
--- NOTE | 2025-01-20 | CA_ITS ---
FINAL REPORT TECHNIQUE: Carranza scale, color and spectral doppler images of the bilateral carotid arteries were obtained. CLINICAL HISTORY: Dizziness, Pain in posterior neck. FINDINGS: Peak systolic velocity in the right internal carotid artery is 90 cm/sec. The internal carotid to common carotid artery ratio is 1.5. There is no significant carotid artery stenosis. There is minimal plaque formation. The right vertebral artery is normal in direction. Peak systolic velocity in the left internal carotid artery is 97 cm/sec. The internal carotid to common carotid artery ratio is 1.0. There is no significant carotid artery stenosis. There is minimal plaque formation. The left vertebral artery is normal in direction. IMPRESSION: No ultrasound evidence of hemodynamically significant carotid artery stenosis. Normal peak systolic velocities and normal internal to common carotid artery ratios bilaterally. Reviewed, Interpreted and Dictated by Kelin Kimbrough MD Transcribed by Marisel Carlos Authenticated and [facility]
--- OUTSIDE RECORDS SUMMARY | 2025-01-20 10:11 | XMS_ITS | Encounter Summary ---
Author Organization [employer] ([place], [place], [place], [place]) Address [address] [place] [address] Care Team Providers Care Industrial Maintenance Repairer Helper Name Role Phone Bryan Salmeron MD Primary Care Provider [phone] Desi Payne MD Unavailable [phone] Ana Maria Jeffers MD Unavailable [phone] Reason for Visit * Reason Comments Medication Refill Encounter Details Date Type Department Care Team (Late st Contact Info) Description 01/12/2023 Refill [facility] Cardiology [address] [place] [address] Desi Payne MD [address] [facility] [address] [place] [address] Unspecified atrial fibrillation (HCC) Social History Tobacco Use Types Packs/Day Years Used Date Smoking Tobacco: Former Cigarettes Smokeless Tobacco: Current Comments:cigars Alcohol Use Standard Drinks/Week Comments Yes 6 (1 standard drink = 0.6 oz pur e alcohol) Sex and Gender Information Value Date Recorded Sex Assigned at Not on file Legal Sex Male 3:27 PM CDT Gender Identity Not on file Sexual Orientation Not on file documented as of this encounter Plan of Treatment Not on file documented as of this encounter Visit Diagnoses Diagnosis Unspecified atrial fibrillation (HCC) documented in this encounter Care Teams Industrial Maintenance Repairer Helper Relationship Specialty Start Date End Date Bryan Salmeron MD [address] [facility] [address] [place] [id number] PCP - General Neurology 03/21/22 Desi Payne MD [address], [facility] [[email or web address] [address] [place] [id number] Telegrapher Agent Interventional Cardiology 05/08/22 Ana Maria Jeffers MD [address] [place] [address] Consulting Physician Orthopedic Surgery 06/22/23 documented as of this encounter
--- OUTSIDE RECORDS SUMMARY | 2025-01-20 10:12 | XMS_ITS | Encounter Summary ---
Author Organization [employer] ([place], [place], [place], [place]) Address [address] [place] [address] Care Team Providers Care Gaming Associate Name Role Phone Bryan Salmeron MD Primary Care Provider [phone] Desi Payne MD Unavailable [phone] Ana Maria Jeffers MD Unavailable [phone] Reason for Visit * Reason Comments Medication Refill Encounter Details Date Type Department Care Team (Late st Contact Info) Description 12/11/2022 Refill [facility] Cardiology [address] [place] [address] Desi Payne MD [address] [facility] [address] [place] [address] Unspecified atrial fibrillation (HCC) Social History Tobacco [...] on file documented as of this encounter Miscellaneous Notes * Telephone Encounter - Juliana Jaramillo MA - 12/11/2022 1:19 PM EDT lv was 11/18/2021 w/ Dr Payne I sent in a 30 day supply of Apixaban as requested but to get more refills pt needs to be scheduled an appt w/ Dr Payne or Ayla Cooney for a 1 year f/u. documented in this encounter Plan of Treatment Not on file documented as of this encounter Visit Diagnoses Diagnosis Unspecified atrial fibrillation (HCC) documented in this encounter Care Teams Gaming Associate Relationship Specialty Start Date End Date Bryan Salmeron MD [address] [place] [phone] PCP - General Neurology 03/21/22 Desi Payne MD [address] [place] , [facility] [address] [place] [address] Hand Pattern Marker Interventional Cardiology 05/08/22 Ana Maria Jeffers MD [address] [place] [address] Consulting Physician Orthopedic Surgery 06/22/23 documented as of this encounter
--- OUTSIDE RECORDS SUMMARY | 2025-01-20 10:12 | XMS_ITS | Encounter Summary ---
Author Organization [employer] ([place], [place], [place], [place]) Address [address] [place] [address] Care Team Providers Care Head Waiter/Waitress Banquet Name Role Phone Bryan Salmeron MD Primary Care Provider + [phone] Desi Payne MD Unavailable [phone] Ana Maria Jeffers MD Unavailable [phone] Encounter Details Date Type Department Care Team (Late st Contact Info) Description 11/15/2019 Transcribed Document [facility] [place] [facility] [place] [address] ProviderPetr MD [address] [place] [address] Social History Tobacco Use Types Packs/Day Years Used Date Smoking Tobacco: Never Assessed Sex and Gender Information Value Date Recorded Sex Assigned at Not on file Legal Sex Male 3:27 PM CDT Gender Identity Not on file Sexual Orientation Not on file documented as of this encounter Miscellaneous Notes * Cerner Conversion Note - Historical ProviderMD - 11/15/2019 9:10 AM CDT CR Chest 1 Vw Portable Ordered: 11/14/2019 Modified Reason for Exam: chest pain 11/14/2019 14:49 11/15/2019 09:10 (NOE BANDA PA-C) Reviewed by Provider, No further action required x1 documented in this encounter Plan of Treatment Not on file documented as of this encounter Visit Diagnoses Not on filedocumented in this encounter Care Teams Head Waiter/Waitress Banquet Relationship Specialty Start Date End Date Bryan Salmeron MD [address] [facility] [address] [place] [address] PCP - General Neurology 03/21/22 Desi Payne MD [address], [facility] [address] [place] [address] Stone Rubber Interventional Cardiology 05/08/22 Ana Maria Jeffers MD [address] [place] [address] Consulting Physician Orthopedic Surgery 06/22/23 documented as of this encounter
--- OUTSIDE RECORDS SUMMARY | 2025-01-20 10:12 | XMS_ITS | Referral Summary ---
Author Organization [employer] ([place], [place], [place], [place]) Address [address] [place] [address] Care Team Providers Care Shaper Setter Name Role Phone Bryan Salmeron MD Primary Care Provider + [phone] Desi Payne MD Unavailable [phone] Ana Maria Jeffers MD Unavailable [phone] Encounters Date Type Department Care Team Description 12/17/2024 Refill [facility] Cardiology [address] [place] [address] Valorie Lockhart APRN Unspecified atrial fibrillation (HCC) from Last 3 Months Allergies Active Allergy Reactions Criticality Noted Date Comments Hydralazine 03/16/2023 Amlodipine 03/16/2023 Medications aspirin 81 MG EC tablet Take 1 tablet (81 mg total) by mouth daily. Active atorvastatin (LIPITOR) 40 MG tablet Take by mouth daily. 2 Active carvediloL (COREG) 25 MG tablet Take 1 tablet (25 mg total) by mouth 2 (two) times daily. 2 Active lisinopriL (PRINIVIL,ZESTRIL ) 40 MG tablet Take 1 tablet (40 mg total) by mouth daily. 2 Active omeprazole (PriLOSEC) 20 MG capsule Take 1 capsule (20 mg total) by mouth nightly. 2 Active triamterene-hydro CHLOROthiazide (DYAZIDE) 37.5-25 mg per capsule Take 1 capsule by mouth daily. Active allopurinoL (ZYLOPRIM) 300 MG tablet Take 1 tablet (300 mg total) by mouth daily. Active sertraline (ZOLOFT) 100 MG tablet Take 1 tablet (100 mg total) by mouth daily. Active Eliquis 5 MG tabletIndications :Unspecified atrial fibrillation (HCC) TAKE 1 TABLET BY MOUTH TWICE A DAY 180 tablet Active Active Problems Problem Noted Date Diagnosed Date Angina pectoris 05/08/2022 Encounter for general adult medical examination without abnormal findings 05/08/2022 Arthritis of knee 04/14/2022 Hyperlipemia 03/31/2022 Sleep apnea 03/31/2022 S/P coronary artery stent placement 03/26/2022 Chronic renal insufficiency 03/26/2022 Primary osteoarthritis of right knee 02/17/2022 Stage 3a chronic kidney disease 02/17/2022 Benign prostatic hyperplasia with nocturia 01/10 Chronic idiopathic gout involving toe 01/10/2022 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 01/10/2022 Atrial fibrillation 07/27/2020 Primary hypertension 07/27/2020 Arteriosclerosis of coronary artery 07/27/2020 Hyperlipidemia 07/27/2020 Depression 05/25/2020 Overview (03/31/2022): started on citalopram by PCP Obesity, Class I, BMI 30-34.9 05/23/2019 Social History Tobacco Use Types Packs/Day Years Used Date Smoking Tobacco: Former Cigarettes Smokeless Tobacco: Current Comments:cigars Alcohol Use Standard Drinks/Week Comments Yes 6 (1 standard drink = 0.6 oz pur e alcohol) Food Insecurity Answer Date Recorded Food run out past 12 months Not on file 05/25 Food did not last past 12 months Not on file 06/05/2023 Employment Answer Date Recorded Help finding and keeping a job Not on file 0 06/05/2023 Family and Community Support Answer Lito e Recorded Help with Day to Day Activities Not on file 06/05/2023 Feeling Lonely or Isolated Not on file 06/05 Educational Attainment Answer Date Eugenio rded Speak language other than Belizean at home Not on file 06/05/2023 Want help with school or training Not on file 06/05/2023 Substance Use Answer Date Recorded Used prescription meds for non-medical reasons N ot on file 06/05/2023 Used illegal drugs past 12 months Not on file 06/05/2023 Sex and Gender Information Value Date Recorded Sex Assigned at Not on file Legal Sex Male 3:27 PM CDT Gender Identity Not on file Sexual Orientation Not on file Last Filed Vital Signs Vital Sign Reading Time Taken Comments Blood Pressure 110/60 05/08/2023 9:03 AM EST Pulse 86 05/08/2023 9:03 AM EST Temperature 36.6 C (97.9 F) 04/15/2022 7:04 AM EST Respiratory Rate 18 04/15/2022 7:04 AM EST Oxygen Saturation 100% 04/15/2022 12:48 AM EST Inhaled Oxygen Concentration - - Weight 112.9 kg (249 lb) 05/08/2023 9:03 AM EST Height 182.9 cm (6') 05/08/2023 9:03 AM EST Body Mass Index 33.77 05/08/2023 9:03 AM EST Plan of Treatment Not on file Medical Devices Implanted Type Area Germination Testing Manager Device Identifier Shelf Expiration Date Model / Serial / Lot Cement Bone Smplx 6194-1-001 - [id number] Implanted:Qt y: 2 on 04/14/2022 by Ana Maria Jeffers MD at [facility] IMPLANTS Right: Knee CHRISSY:[employer] 10/23/2023 6194-1-00 [id number] D Psn Art Surf 10 Ve8-11gh Rt 15-1310-336- 10 - [id number] Implanted:Qt y: 1 on 04/14/2022 by Ana Maria Jeffers MD at [facility] TOTAL JOINT CONSTRUCT Right: Knee CLEMENTE:CLEMENTE [id number] 12/18/2026 42-5221-0 02-01 [id number] Imp Knee Fem Psn Cr Cmt Sz11 R 46-3681-813- 02 - [id number] Implanted:Qt y: 1 on 04/14/2022 by Ana Maria Jeffers MD at [facility] TOTAL JOINT CONSTRUCT Right: Knee CLEMENTE:CLEMENTE [place] [id number] 10/02/2030 42-5026-0 70-02 / [id number] Tib Cemented Stem 5d Sz G R 19-1819-233- 02 - [id number] Implanted:Qt y: 1 on 04/14/2022 by Ana Maria Jeffers MD at [facility] TOTAL JOINT CONSTRUCT Right: Knee CLEMENTE:CLEMENTE [id number] 11/18/2031 42-5320-0 79-02 / [id number] Insurance MEDICARE PART A B HEALTH CLAIMS Advance Directives For more information, please contact: [phone] Documents on File Type Date Recorded Patient Management Services Technician Expl anation Advance Directives and Livin g Will 03/31/2022 8:05 AM Advance Directives and Livin g Will 03/21/2022 7:23 AM * Full Code (Latest Code Status on File) Date Activated Date Inactivated Comments 04/14/2022 4:15 PM 04/15/2022 3:03 PM * Full Code Date Activated Date Inactivated Comments 04/14/2022 9:43 AM 04/14/2022 4:15 PM Care Teams Shaper Setter Relationship Specialty Start Date End Date Bryan Salmeron MD [address] [facility] [address] [place] [id number] PCP - General Neurology 03/21/22 Desi Payne MD [address], [facility] [address] [place] [address] Acupuncturist Interventional Cardiology 05/08/22 Ana Maria Jeffers MD [address] [place] [address] Consulting Physician Orthopedic Surgery 06/22/23
--- OUTSIDE RECORDS SUMMARY | 2025-01-20 10:12 | XMS_ITS | Clinical Summary ---
Author Organization [employer] ([place], [place], [place], [place]) Address [address] [place] [address] Care Team Providers Care Platen Press Operator Name Role Phone Bryan Salmeron MD Primary Care Provider + [phone] Desi Payne MD Unavailable [phone] Ana Maria Jeffers MD Unavailable [phone] Allergies Active Allergy Reactions Criticality Noted Date [...] PCP Obesity, Class I, BMI 30-34.9 05/23/2019 Encounters Date Type Department Care Team Description 12/17/2024 [facility] Cardiology [address] [place], [place] [address] [place], WARP HANGER Unspecified atrial fibrillation (HCC) from Last 3 Months Family History Medical History Relation Name Comments Congenital heart disease Brother Congenital heart disease Mother Congenital heart disease Sister Kidney disease Sister Relation Name Status Comments Brother Father doesnt know hx; when pt was 1 Mother Sister Social History Tobacco Use Types Packs/Day Years [...] Date Eugenio rded Speak language other than Samoan at home Not on file 06/05/2023 Want [...] 05/08/2023 9:03 AM EST Plan of Treatment Health Maintenance Due Date Last Done Comments Medicare Initial AWV [id number] DTAP/TDAP/TD VACCINES (1 - Tdap) 09/27/1962 Shingles Vaccine (Zoster) (2 of 2) 04/24/20092008 Pneumococcal 50+ years (2 of 2 - PCV) 03/28/2018 03/28/2017 Respiratory Syncytial Virus (RSV) Adult or (1 - 1-dose 75+ series) 09/27/2018 COVID-19 VACCINE ( - 2023-2 5 season) 2024 12/06/2021, 03/26/2021, 07/20/2020, Additional history exists Tobacco Cessation Counseling and Screening (12+) 05/08/2024 05/08/2023 Falls Risk Screening 05/25/2024 Influenza Vaccine (#1) 2025 2, 02/15/2021, 02/06/2020, Additional history exists Medical Devices Implanted Type Area Consumer Safety Inspector Device Identifier Shelf Expiration Date Model / Serial / Lot Cement Bone Smplx Hv 6194-1-001 - [id number] Implanted:Qt y: 2 on 04/14/2022 by Ana Maria Jeffers MD at [facility] IMPLANTS Right: Knee CHRISSY:[employer] 10/23/2023 6194-1-00 [id number] D Psn Art Surf 10 Ve8-11gh Rt 51-6513-451- 10 - [id number] Implanted:Qt y: 1 on 04/14/2022 by Ana Maria Jeffers MD at [facility] TOTAL JOINT CONSTRUCT Right: Knee CLEMENTE:CLEMENTE [id number] 12/18/2026 42-5221-0 09-10 / [id number] Imp Knee Fem Psn Cr Cmt Sz11 R 26-0917-070- 02 - [id number] Implanted:Qt y: 1 on 04/14/2022 by Ana Maria Jeffers MD at [facility] TOTAL JOINT CONSTRUCT Right: Knee CLEMENTE:CLEMENTE [id number] 10/02/2030 42-5026-0 70-02 [id number] Tib Cemented Stem 5d Sz G R 62-7747-144- 02 - [id number] Implanted:Qt y: 1 on 04/14/2022 by Ana Maria Jeffers MD at [facility] TOTAL JOINT CONSTRUCT Right: Knee CLEMENTE:CLEMENTE [id number] 11/18/2031 42-5320-0 79-02 / [id number] Insurance MEDICARE PART A B [facility] AAR HEALTH CLAIMS Advance Directives For more information, please contact: [phone] Documents on File Type Date Recorded Patient Abap Developer Expl anation Advance Directives and Livin g Will 03/31/2022 8:05 AM Advance Directives and Livin g Will 03/21/2022 7:23 AM * Full Code (Latest Code Status on File) Date Activated Date Inactivated Comments 04/14/2022 4:15 PM 04/15/2022 3:03 PM * Full Code Date Activated Date Inactivated Comments 04/14/2022 9:43 AM 04/14/2022 4:15 PM Care Teams Platen Press Operator Relationship Specialty Start Date End Date Bryan aSlmeron MD [address] [facility] [address] [place] [address] PCP - General Neurology 03/21/22 Desi Payne MD [address], [address] [place] [address] Precision Mechanical Instrument Maker Interventional Cardiology 05/08/22 Ana Maria Jeffers MD [address] [place], [place] [id number] Consulting Physician Orthopedic Surgery 06/22/23
--- OUTSIDE RECORDS SUMMARY | 2025-01-20 10:12 | XMS_ITS | Encounter Summary ---
Author Organization [employer] ([place], [place], [place], [place]) Address [address] [place] [address] Care Team Providers Care Data Center Manager Name Role Phone Bryan Salmeron MD Primary Care Provider + [phone] Desi Payne MD Unavailable [phone] Ana Maria Jeffers MD Unavailable [phone] Encounter Details Date Type Department Care Team (Late st Contact Info) Description 11/14/2019 Transcribed Document [facility] [place] [address] [place] [address] ProviderPetr MD [address] [place] [address] Social History Tobacco Use Types Packs/Day Years Used Date Smoking Tobacco: Never Assessed Sex and Gender Information Value Date Recorded Sex Assigned at Not on file Legal Sex Male 3:27 PM CDT Gender Identity Not on file Sexual Orientation Not on file documented as of this encounter Miscellaneous Notes * Cerner Conversion Note - Petr ProviderMD - 11/14/2019 1:12 PM CDT ED Triage Entered On: 11/14/2019 13:40 EDT Performed On: 11/14/2019 13:37 EDT by Keri Cedeno, MAGNETO ELECTRICIAN Triage Across the Room Chief Complaint : pt states he had syncopal episode while working in the garden. pt BP 69/48 in triage. Triage Date/Time : 11/14/2019 13:37 EDT Keri Cedeno RN - 11/14/2019 13:37 EDT DCP GENERIC CODE Tracking Acuity : 2 - Emergent Tracking Group : [facility] ED Keri Cedeno RN - 11/14/2019 13:37 EDT Mode of Arrival : Ambulatory Transported to ED by : Private vehicle To Room Via : Ambulate Accompanied By : Spouse ED Vital Signs : Document Height & Weight : Document ED Allergies : Document ED Reason for Visit : Document Keri Cedeno RN - 11/14/2019 13:37 EDT Infectious Disease History Has the patient ever been tested for COVID-19? : No, Patient stated COVID19 Screening : No Experiencing Infectious Disease Symptoms : No symptoms Physical contact outside [place] in the last 30 days : No Infectious Disease Symptoms Score : 0 Infectious Disease History : Chicken pox/Shingles, Measles, Mumps Tuberculosis Symptoms : None Keri Cedeno RN - 11/14/2019 13:37 EDT Vital Signs ED Temperature Source : Oral Temperature Mode : Fahrenheit Temperature, Fahrenheit : 97.8 Deg F ED Pain : No Clinical Temperature, C : 36.6 Deg C Oxygen Therapy Mode : Room air Peripheral Pulse Rate : 86 bpm Respiratory Rate : 19 Breaths/Min Systolic Blood Pressure : 75 mmHg (LOW) Diastolic Blood Pressure : 50 mmHg (LOW) Oxygen Saturation : 98 % Keri Cedeno RN - 11/14/2019 13:37 EDT Allergy (As Of: 11/14/2019 13:40:49 EDT) Allergies (Active) No Known Allergies Estimated Onset Date: Unspecified ; Created By: Contributor_system HIST_Diverse EnergyZEYNEP; Reaction Status: Active ; Category: Drug ; Substance: No Known Allergies ; Type: Allergy ; Updated By: Contributor_system HIST_CERZEYNEP; Reviewed Date: 11/14/2019 13:37 EDT Diagnosis Control ED (As Of: 11/14/2019 13:40:49 EDT) Problems(Active) Angina (SNOMED CT :325235024 ) Name of Problem: Angina ; Recorder: SHEILA RUFFIN RN; Confirmation: Confirmed ; Classification: Patient Stated ; Code: [id number] ; Contributor System: EidoSearch ; Last Updated: 03/19/2018 7:32 EDT ; Life Cycle Date: 03/19/2018 ; Life Cycle Status: Active ; Vocabulary: SNOMED CT Coronary artery disease (SNOMED CT :9738725617 ) Name of Problem: Coronary artery disease ; Recorder: SHEILA RUFFIN RN; Confirmation: Confirmed ; Classification: Patient Stated ; Code: [id number] ; Contributor System: PowerChart ; Last Updated: 03/19/2018 7:32 EDT ; Life Cycle Date: 03/19/2018 ; Life Cycle Status: Active ; Vocabulary: SNOMED CT GERD - Gastro-esophageal reflux disease (SNOMED CT :9466864455 ) Name of Problem: GERD - Gastro-esophageal reflux disease ; Recorder: SHEILA RUFFIN RN; Confirmation: Confirmed ; Classification: Patient Stated ; Code: [id number] ; Contributor System: PowerChart ; Last Updated: 03/19/2018 7:33 EDT ; Life Cycle Date: 03/19/2018 ; Life Cycle Status: Active ; Vocabulary: SNOMED CT History of obstructive sleep apnea (IMO :21282012 ) Name of Problem: History of obstructive sleep apnea ; Recorder: SYSTEM, SYSTEM; Confirmation: Confirmed ; Classification: Medical ; Code: 64869698 ; Last Updated: 03/19/2018 7:49 EDT ; Life Cycle Date: 03/19/2018 ; Life Cycle Status: Active ; Vocabulary: IMO Hyperlipidemia (SNOMED CT :79514285 ) Name of Problem: Hyperlipidemia ; Recorder: SHEILA RUFFIN RN; Confirmation: Confirmed ; Classification: Patient Stated ; Code: 66513834 ; Contributor System: PowerChart ; Last Updated: 03/19/2018 7:32 EDT ; Life Cycle Date: 03/19/2018 ; Life Cycle Status: Active ; Vocabulary: SNOMED CT Hypertension (SNOMED CT :32981881 ) Name of Problem: Hypertension ; Recorder: SHEILA RUFFIN RN; Confirmation: Confirmed ; Classification: Patient Stated ; Code: 68771695 ; Contributor System: PowerChart ; Last Updated: 03/19/2018 7:32 EDT ; Life Cycle Date: 03/19/2018 ; Life Cycle Status: Active ; Vocabulary: SNOMED CT Sleep apnea (SNOMED CT :539138530 ) Name of Problem: Sleep apnea ; Recorder: SHEILA RUFFIN RN; Confirmation: Confirmed ; Classification: Patient Stated ; Code: [id number] ; Contributor System: PowerChart ; Last Updated: 03/19/2018 7:47 EDT ; Life Cycle Date: 03/19/2018 ; Life Cycle Status: Active ; Vocabulary: SNOMED CT Stented coronary artery (SNOMED CT :4396412672 ) Name of Problem: Stented coronary artery ; Recorder: SHEILA RUFFIN RN; Confirmation: Confirmed ; Classification: Patient Stated ; Code: [id number] ; Contributor System: [employer]idoSearch ; Last Updated: 03/19/2018 7:31 EDT ; Life Cycle Date: 03/19/2018 ; Life Cycle Status: Active ; Vocabulary: SNOMED CT Diagnoses(Active) Syncope/Near syncope Date: 11/14/2019 ; Diagnosis Type: Reason For Visit ; Confirmation: Complaint of ; Clinical Dx: Syncope/Near syncope ; Classification: Medical ; Clinical Service: Emergency medicine ; Code: PNED ; Probability: 0 ; Diagnosis Code: [id number] ED Height and Weight Height Source : Stated Height Entry Format : [place] Height, Feet : 6 ft(Converted to: 183 cm, 72 Inch) Height, Inches : 0 Inch(Converted to: 0 ft 0 Inch, 0.00 cm) Clinical Height : 182.88 cm Weight Source, ED : Critical estimated dosing weight Weight Entry Format : [place] Weight, Pounds : 265 lb Clinical Dosing Weight : 120.45 kg Body Surface Area (BSA) : 2.4 m2 Body Mass Index : 36 kg/m2 (HI) [place] Body Weight (IBW) : 76.59 kg Keri Cedeno RN - 11/14/2019 13:37 EDT Electronically signed by [facility] Conversion Business Office Technician Cerner at 09/10/2022 12:25 PM CDT documented in this encounter Plan of Treatment Not on file documented as of this encounter Visit Diagnoses Not on filedocumented in this encounter Care Teams Data Center Manager Relationship Specialty Start Date End Date Bryan Salmeron MD [address] [place] [address] PCP - General Neurology 03/21/22 Desi Payne MD [address], [facility] [address] [place] [address] Transmission Systems Operator Interventional Cardiology 05/08/22 Ana Maria Jeffers MD [address] [place] [address] Consulting Physician Orthopedic Surgery 06/22/23 documented as of this encounter
--- OUTSIDE RECORDS SUMMARY | 2025-01-20 10:12 | XMS_ITS | Encounter Summary ---
Author Organization [employer] ([place], [place], [place], [place]) Address [address] [place] [address] Care Team Providers Care Fuel Dock Attendant Name Role Phone Bryan Lucas MD Primary Care Provider [phone] Desi Payne MD Unavailable [phone] Ana Maria Jeffers MD Unavailable [phone] Encounter Details Date Type Department Care Team (Late st Contact Info) Description 11/14/2019 Transcribed Document [facility] Family [facility] [place] [address] ProviderPetr MD [address] [place] [id number] Social History Tobacco Use Types Packs/Day Years Used Date Smoking Tobacco: Never Assessed Sex and Gender Information Value Date Recorded Sex Assigned at Not on file Legal Sex Male 3:27 PM CDT Gender Identity Not on file Sexual Orientation Not on file documented as of this encounter Miscellaneous Notes * Cerner Conversion Note - Petr ProviderMD - 11/14/2019 1:51 PM CDT Patient: ELY RUDD Age: 74 years Sex: Male : 1945 Associated Diagnoses: Syncope; Dehydration Author: CAMERON PINTO PA Basic Information Additional information: Chief Complaint from Nursing Triage Note : Chief Complaint 11/14/2019 13:37 EDT Chief Complaint pt states he had syncopal episode while working in the garden. pt BP 69/48 in triage. . History of Present Illness Patient is a 74 year old male with past medical history significant for coronary artery disease with cardiac stents, hypertension and atrial fibrillation currently anticoagulated on Eliquis who presents to the ED following a syncopal episode today. Patient reports that he was working in his garden when he got hot, went to sent on the tailgate of his truck and have a drink and then found himself face down on the ground having passed out. Patient states that he has had diarrhea for the last several days and was feeling weak this morning prior to working in his garden. He reports trying to sat hydrated but isn't sure if he was dehydrated or just got too hot. Patient denies anything specific that caused his symptoms or made them worse. Shares an associated symptom of pain in his left rib which he attributes to coming from his fall. Review of Systems Constitutional symptoms: Weakness, no fever, no chills. Eye symptoms: Vision unchanged. Respiratory symptoms: No shortness of breath, Cardiovascular symptoms: No chest pain, Gastrointestinal symptoms: Diarrhea, no abdominal pain, no nausea, no vomiting, no constipation. Musculoskeletal symptoms: Negative except as documented in HPI. Neurologic symptoms: Altered level of consciousness, weakness. Additional review of systems information: All other systems reviewed and otherwise negative. Health Status Allergies: Allergic Reactions (Selected) No Known Allergies. Medications: (Selected) Inpatient Medications Ordered NaCl 0.9% bolus: 1,000 mL, 1,000 mL/Hr, IV Piggyback, 1-Time Documented Medications Documented Co-Q10: 200 mg, Oral, Daily, 0 Refill(s) Eliquis: 5 mg, Oral, BID, 0 Refill(s) allopurinol: 300 mg, Oral, Daily, 0 Refill(s) aspirin: 325 mg, Oral, Daily, 0 Refill(s) atorvastatin: 20 mg, Oral, At Bedtime, 0 Refill(s) dilTIAZem: 180 mg, Oral, Daily, 0 Refill(s) doxazosin: 1 mg, Oral, At Bedtime, 0 Refill(s) lisinopril: 40 mg, Oral, At Bedtime, 0 Refill(s) omeprazole: 20 mg, Oral, Daily, 0 Refill(s). Past Medical/ Family/ Social History Surgical history: cardiac catheterization with pci.. Family history: No family history items have been selected or recorded.. Social history: Social & Psychosocial Habits Alcohol 03/19/2018 Number of Drinks per Day 2 Total Drinks Per Week 14 Substance Abuse 03/19/2018 Recreational Drug Use History No Tobacco 03/19/2018 Month Tobacco Last Used quit cigar smoking in 2007, . Problem list: Active Problems (8) Angina Coronary artery disease GERD - Gastro-esophageal reflux disease History of obstructive sleep apnea Hyperlipidemia Hypertension Sleep apnea Stented coronary artery . Physical Examination Vital Signs Vital Signs/Vital Measures 11/14/2019 13:37 EDT Systolic Blood Pressure 75 mmHg LOW Diastolic Blood Pressure 50 mmHg LOW Temperature Source Oral Temperature Mode Fahrenheit Temperature, Fahrenheit 97.8 Deg F Clinical Temperature, C 36.6 Deg C Peripheral Pulse Rate 86 bpm Respiratory Rate 19 Breaths/Min Oxygen Saturation 98 % Oxygen Therapy Mode Room air . Measurements 11/14/2019 13:37 EDT Height Source Stated Height Entry Format [place] Height/Length, PUERTO RICAN (ft) 6 ft Height/Length PUERTO RICAN 0 Inch CLINICALHEIGHT 182.88 cm [place] Body Weight 76.59 kg Weight Source, ED Critical estimated dosing weight Weight Entry Format [place] Weight [place] lb 265 lb CLINICALWEIGHT 120.45 kg Body Surface Area (BSA) 2.4 m2 Body Mass Index 36 kg/m2 HI . Oxygen Saturation 11/14/2019 13:37 EDT Oxygen Saturation 98 % . General: Alert, no acute distress. Skin: Warm, dry. Head: Normocephalic, atraumatic. Eye: Normal conjunctiva. Cardiovascular: Irregularly irregular rhythm. Respiratory: Lungs are clear to auscultation, respirations are non-labored. Chest wall: On exam: Left, anterior, tenderness. Musculoskeletal: Normal ROM. Gastrointestinal: Nontender, Non distended. Neurological: Alert and oriented to person, place, time, and situation, No focal neurological deficit observed. Psychiatric: Cooperative. Medical Decision Making Differential Diagnosis: Syncope. Rationale: Patient presents to ED following a syncopal episode. Patient with recent history of diarrhea and likely dehydrated after working in garden. Initialy hypotensive on exam and responded well to IV fluids. No acute/emergent abnormalities appreciated on physical exam, labs or imaging. Patient is afebrile, nontoxic appearing, vital signs stable and able to maintain O2 sats of 98% on room air. Patient will be discharged home with outpatient follow up to their primary care provider and given instructions on symptomatic care a maintaining hydration. Patient is agreeable to plan of care of outpatient follow up, provided clear return precautions and demonstrated understanding. . Documents reviewed: Emergency department nurses' notes. Orders Include Previous Orders (Selected) Inpatient Orders Ordered Bedrest: Cardiac Education: Cardiac Monitoring: Discharge: ECG: ED Fall Risk Documented: NPO (immediate): Pulse Oximetry Continuous Monitoring: Completed .Automated Differential: CBC w/ Auto Diff: CMP Comprehensive Metabolic Panel: CR Chest 1 Vw Portable: CT Head WO: ED Adult Fall Risk Assessment: ED Adult Triage: ED C-SSRS: ED Clinical Reconciliation: ED umbrella supervisor: Lipase Level: Magnesium Level: NaCl 0.9% bolus: 1,000 mL, 1,000 mL/Hr, IV Piggyback, 1-Time PT/INR Prothrombin Time: PTT: Peripheral IV Insertion: ProBNP: Troponin I Ultra: . Electrocardiogram: Time 11/14/2019 13:38:00, rate 89, No ST changes, EP Interp, The Rhythm is atrial fibrillation. , Atrial fibrillation without acute ST elevations reviewed by Dr. Morales. Results review: Lab results : Lab Results 11/14/2019 13:58 EDT Sodium Level 138 mmol/L Potassium Level 3.4 mmol/L LOW Chloride Level 105 mmol/L Carbon Dioxide Level 22 mmol/L Anion Gap 14 Glucose Level 92 mg/dL Blood Urea Nitrogen 30 mg/dL HI Creatinine Level 2.10 mg/dL HI eGFR 37 mL/min/1.73m2 LOW eGFR NonAfrican 31 mL/min/1.73m2 LOW Bun/Creatinine 14.3 Calcium Level 9.1 mg/dL Protein Total 7.9 Gram/dL Albumin Level 3.5 Gram/dL Globulin 4.4 Gram/dL A/G Ratio 0.8 LOW Bilirubin Total 0.4 mg/dL Alk Phos 76 Units/Liter AST 34 Units/Liter ALT 37 Units/Liter Magnesium Level 2.1 mg/dL Lipase Level 215 Units/Liter Troponin I Ultra <0.015 ng/mL ProBNP 1,799 pg/mL HI WBC 8.0 K/uL RBC 4.74 Million/uL Hgb 13.9 g/dL Hct 43.1 % MCV 90.9 fL MCH 29.3 pg MCHC 32.3 Gram/dL Platelet Count 171 K/uL MPV 11.4 fL RDW 13.9 % Neut % 75.3 % HI Neut # 6.00 K/uL Lymph % 13.4 % LOW Lymph # 1.07 x10(3)/uL [place] % 8.9 % [place] # 0.71 K/uL Eos % 1.6 % Eos # 0.13 x10(3)/uL Baso % 0.4 % Baso # 0.03 x10(3)/uL Slide Review No IG# 0.03 x10(3)/uL IG% 0.40 % PT 10.7 Second(s) INR 1.0 PTT 27.8 Second(s) . Chest X-Ray: Time reported 11/14/2019 14:32:00, no acute disease process, interpretation by Emergency Physician, No acute cardiopulmonary process reviewed with Dr. Morales. Radiology results: Radiology Results (Last 48 hours) [id number] -- 11/14/2019 13:12 CR Chest 1 Vw Portable (11/14/2019 14:05) Result: PORTABLE CHEST 11/14/2019 1:49 PM HISTORY: Left rib pain. Fall.COMPARISON: None.FINDINGS: The heart is normal in size . The mediastinum isunremarkable . The lungs are clear . There is no pneumothorax . Noacute fracture is seen.IMPRESSION: No acute cardiopulmonary process .Images reviewed, interpreted, and dictated by Kj Hagen DO CT Head WO (11/14/2019 14:20) Result: HEAD CT WITHOUT CONTRAST 11/14/2019 1:50 PM HISTORY: Headache.COMPARISON: None.TECHNIQUE: Multiple axial CT images were performed from the foramenmagnum to the vertex without enhancement. This study was performed withtechniques to keep radiation doses as low as reasonably achievable,(ALARA). Individualized dose reduction techniques using automatedexposure control or adjustment of mA and/or kV according to the patientsize were employed.FINDINGS: The ventricles are normal in size. There is no evidence ofhemorrhage. No masses are identified. No extra-axial fluid is seen. The sinuses are normal. IMPRESSION: No acute intracranial process. Images reviewed, interpreted, and dictated by Dr. Poppy Doe.Transcribed by Julien Yip PA-C, R.T. (N), C N Rishi T.I have personally viewed, interpreted and dictated the examination. Ihave read and agree with the above final transcribed report. . Reexamination/ Reevaluation Time: 11/14/2019 15:35:00 . Notes: Patient ambulated in hallway through ED; reports feeling well; asymptomatic. Impression and Plan Diagnosis Syncope - Discharge, Medical Dehydration - Discharge, Medical Plan Condition: Improved, Stable. Disposition: Medically cleared, Discharged Admit/Transfer/Discharge: Discharge (Order): Start: 11/14/2019 15:35 EDT, Discharge to: Home. Patient was given the following educational materials: Syncope, Dehydration, Adult, Rehydration, Adult. Follow up with: BRYAN LUCAS Within 2 to 3 days Call for follow up appointment Call in the AM Follow-up as instructed Return if condition worsens Symptomatic care is recommended. Take all medications as prescribed and instructed. . Counseled: Patient, Family, Regarding diagnosis, Regarding diagnostic results, Regarding treatment plan, Patient indicated understanding of instructions. Notes: I certify that the Physician Tablet Tester performed the services as delegated. I agree with the assessment, treatment plan and disposition of the patient as recorded by the Physician Tablet Tester, Dr. Morales. Electronically signed by [facility] Conversion [employer] Cerner at 09/10/2022 12:23 PM CDT documented in this encounter Plan of Treatment Not on file documented as of this encounter Visit Diagnoses Not on filedocumented in this encounter Care Teams Fuel Dock Attendant Relationship Specialty Start Date End Date [facility] Lucas [facility] [address] [place] [id number] PCP - General Neurology 03/21/22 Desi Payne MD [address], [facility] [address] [place] [id number] Room Service Supervisor Interventional Cardiology 05/08/22 Ana Maria Jeffers MD [address] [place] [address] Consulting Physician Orthopedic Surgery 06/22/23 documented as of this encounter
--- OUTSIDE RECORDS SUMMARY | 2025-01-20 10:12 | XMS_ITS ---
Author Organization Unknown Results OrderDate OrderTestName ResultName ResultDate Value Units Range AbnormalFlag ResultStatus ObservationNotes TestCode ResultCode DateRecorded AccessionNumber DiagnosticSectionCode DiagnosticSectionName Sequence Interpretation Cust 02/08/2024 00:00:00 P-Culture, Wound Aerobic w/Gram Stain Gram Stain 2982-71-75Q66:00:00 See Below - Reviewed Joyce Delgado 02/15/2024 11:01:21 AM > pt started on CephalexinKing,Katie 02/15/2024 11:37:29 AM > Tried to call pt, no answerKing,[facility] 02/17/2024 4:37:02 PM > Pt informed P-Culture, Wound Aerobic w/G saray Stain 02/08/2024 00:00:00002/08/2024 00:00:00P-Culture, Wound Aerobic w/Gram Stain Specimen Mphldn5029-27-30O57:00:00Abscess - mid left back-ReviewedDannyJoyce 02/15/2024 11:01:21 AM > pt started on CephalexinKing,[facility] 02/15/2024 11:37:29 AM > Tried to call pt, no answerKing,[facility] 02/17/2024 4:37:02 PM > Pt informed Coding P-Culture, Wound Aerobic w/G saray Stain 02/08/2024 00:00: 00:00:00P-Culture, Wound Aerobic w/Gram Stain Culture, Wound Aerobic w/Gram Nygni5201-07-30I75:00:00See Below-Reviewed Joyce Delgado 02/15/2024 11:01:21 AM > pt started on CephalexinKing,[facility] 02/15/2024 11:37:29 AM > Tried to call pt, no answerKing,[facility] 02/17/2024 4:37:02 PM > Pt informed Coding P-Culture, Wound Aerobic w/G saray Stain 02/08/2024 00:00:001 00:00:00P-Lipid PanelTriglycerides 3202-43-61M38:00:61372md/dL<150 - mg/dLJoyce Chaney 03/01/2024 9:05:23 AM > See phone encounter Coding P-Lipid Panel 02/29/2024 00:00:001 00:00:00P-Lipid PanelNon-HDL Cholesterol 4606-62-62W75:00:0067mg/dL<130 - mg/dLReJoyce Spangler 03/01/2024 9:05:23 AM > See phone encounter Coding P-Lipid Panel 02/29/2024 00:00:001 00:00:00P-Lipid PanelLDL/HDL Ratio 9505-09-45O47:00:001.2Ratio<3.3 - RatioReJoyce Spangler 03/01/2024 9:05:23 AM > See phone encounter Coding P-Lipid Panel 02/29/2024 00:00:001 00:00:00P-Lipid PanelLDL Cholesterol (Calculation) 7225-93-14A12:00:0038mg/dL<130 - mg/dLJoyce Chaney 03/01/2024 9:05:23 AM > See phone encounter Coding P-Lipid Panel 02/29/2024 00:00:001 00:00:00P-Lipid PanelHDL Cholesterol 7008-97-89Q21:00:0032mg/dL>39 - mg/dLJoyce Patricio 03/01/2024 9:05:23 AM > See phone encounter Coding P-Lipid Panel 02/29/2024 00:00:001 00:00:00P-Lipid PanelCholesterol 3130-16-31D32:00:0099mg/dL<200 - mg/dLJoyce Chaney 03/01/2024 9:05:23 AM > See phone encounter Coding P-Lipid Panel 02/29/2024 00:00:001 00:00:00P-Lipid PanelCholesterol / HDL Ratio 1856-88-17H43:00:003.17Aputc5.00-4.99 - RatioReJoyce Spangler 03/01/2024 9:05:23 AM > See phone encounter Coding P-Lipid Panel 02/29/2024 00:00:001 00:00:00P-Comprehensive Metabolic Panel (CMP)eGFR by Wevgzztzxq1060-12-75H58:00:0072mL/min/1.73m2>59 - mL/min/1.73w1ThieqdrbJoyce Gregg 03/01/2024 9:05:23 AM > See phone encounter Coding P-Comprehensive Metabolic Pa aimee (CMP) 02/29/2024 00:00:001 00:00:00P-Comprehensive Metabolic Panel (CMP) Ftvzoqw9481-61-81F17:00:007.2g/dL6.0-8.3 - g/dLJoyce Chaney 03/01/2024 9:05:23 AM > See phone encounter Coding P-Comprehensive Metabolic Pa aimee (CMP) 02/29/2024 00:00: 00:00:00P-Comprehensive Metabolic Panel (CMP) Vcgrjn9679-85-17F84:00:29498tapa/U840-949 - mmol/LRevJoyce Ding 03/01/2024 9:05:23 AM > See phone encounter Coding P-Comprehensive Metabolic Pa aimee (CMP) 02/29/2024 00:00:001 00:00:00P-Comprehensive Metabolic Panel (CMP) Paoydgddn3733-90-23Y22:00:004.6mmol/L3.5-5.3 - mmol/LRevieJoyce Cherry 03/01/2024 9:05:23 AM > See phone encounter Coding P-Comprehensive Metabolic Pa aimee (CMP) 02/29/2024 00:00:001 00:00:00P-Comprehensive Metabolic Panel (CMP) Twstodo0130-19-46W32:00:69487sk/dL65-99 - mg/dLJoyce Yeboah 03/01/2024 9:05:23 AM > See phone encounter Coding P-Comprehensive Metabolic Pa aimee (CMP) 02/29/2024 00:00:001 00:00:00P-Comprehensive Metabolic Panel (CMP) Pksusbwjlc8250-52-57V18:00:001.05mg/dL0.70-1.30 - mg/dLJoyce Chaney 03/01/2024 9:05:23 AM > See phone encounter Coding P-Comprehensive Metabolic Pa aimee (CMP) 02/29/2024 00:00:001 00:00:00P-Comprehensive Metabolic Panel (CMP)CO2 8978-18-20E18:00:0024mmol/L22-32 - mmol/LRJoyce Ivey 03/01/2024 9:05:23 AM > See phone encounter Coding P-Comprehensive Metabolic Pa aimee (CMP) 02/29/2024 00:00:001 00:00:00P-Comprehensive Metabolic Panel (CMP) Esehcxla6809-36-56F25:00:65868fqnb/L97-108 - mmol/LRJoyce Ivey 03/01/2024 9:05:23 AM > See phone encounter Coding P-Comprehensive Metabolic Pa aimee (CMP) 02/29/2024 00:00: 00:00:00P-Comprehensive Metabolic Panel (CMP) Ltcoyja5956-23-31S23:00:009.2mg/dL8.6-10.4 - mg/dLJoyce Chaney 03/01/2024 9:05:23 AM > See phone encounter Coding P-Comprehensive Metabolic Pa aimee (CMP) 02/29/2024 00:00:001 00:00:00P-Comprehensive Metabolic Panel (CMP)BUN 9875-40-79W60:00:0032mg/dL8-23 - mg/dLJoyce Yeboah 03/01/2024 9:05:23 AM > See phone encounter Coding P-Comprehensive Metabolic Pa aimee (CMP) 02/29/2024 00:00:001 00:00:00P-Comprehensive Metabolic Panel (CMP) Bilirubin, Pbjle2549-05-36O63:00:000.2mg/dL<0.2-1.2 - mg/dLJoyce Chaney 03/01/2024 9:05:23 AM > See phone encounter Coding P-Comprehensive Metabolic Pa aimee (CMP) 02/29/2024 00:00:001 00:00:00P-Comprehensive Metabolic Panel (CMP)AST (SGOT)2505-06-45Q52:00:0024IU/L<5-46 - IU/LRevJoyce Ding 03/01/2024 9:05:23 AM > See phone encounter Coding P-Comprehensive Metabolic Pa aimee (CMP) 02/29/2024 00:00: 00:00:00P-Comprehensive Metabolic Panel (CMP)ALT (SGPT)5223-74-91O79:00:0019IU/L<5-55 - IU/LRJoyce Ivey 03/01/2024 9:05:23 AM > See phone encounter Coding P-Comprehensive Metabolic Pa aimee (CMP) 02/29/2024 00:00: 00:00:00P-Comprehensive Metabolic Panel (CMP) Alkaline Gqearlkgbik9401-51-00J95:00:65842KR/L40-129 - IU/LHJoyce Chaney 03/01/2024 9:05:23 AM > See phone encounter Coding P-Comprehensive Metabolic Pa aimee (CMP) 02/29/2024 00:00: 00:00:00P-Comprehensive Metabolic Panel (CMP) Nccqtek9858-92-07Y37:00:004.4g/dL3.5-5.3 - g/dLJoyce Chaney 03/01/2024 9:05:23 AM > See phone encounter Coding P-Comprehensive Metabolic Pa aimee (CMP) 02/29/2024 00:00:001 00:00:00P-Comprehensive Metabolic Panel (CMP)A/G Ucbtn6171-12-04Z30:00:001.61.1-2.5 -Joyce Chaney 03/01/2024 9:05:23 AM > See phone encounter Coding P-Comprehensive Metabolic Pa aimee (CMP) 02/29/2024 00:00:001 00:00:00CBC Venipuncture (in house)[place] 6458-16-63U17:00:50856363 - 400ReMary Hidalgo 02/29/2024 12:44:24 PM > Joyce Delgado 03/01/2024 9:05:23 AM > See phone encounter Coding CBC Venipuncture (in house) 02/29/2024 00:00:001 00:00:00CBC Venipuncture (in house)[facility] 0136-90-02V99:00:0030.331 - 38ReMary Hidalgo 02/29/2024 12:44:24 PM > Joyce Delgado 03/01/2024 9:05:23 AM > See phone encounter Coding CBC Venipuncture (in house) 02/29/2024 00:00:001 00:00:00CBC Venipuncture (in house)[facility] 6579-16-49S97:00:0023.225 - 35ReMary Hidalgo 02/29/2024 12:44:24 PM > Joyce Delgado 03/01/2024 9:05:23 AM > See phone encounter Coding CBC Venipuncture (in house) 02/29/2024 00:00:001 00:00:00CBC Venipuncture (in house)[facility] [place] [facility] 0323-01-99R58:00:0076.375 - 100Mary Campos 02/29/2024 12:44:24 PM > Joyce Delgado 03/01/2024 9:05:23 AM > See phone encounter Coding CBC Venipuncture (in house) 02/29/2024 00:00:001 00:00:00CBC Venipuncture (in house)hct 8085-09-49L04:00:0037.335 - 55ReMary Hidalgo 02/29/2024 12:44:24 PM > Joyce Delgado 03/01/2024 9:05:23 AM > See phone encounter Coding CBC Venipuncture (in house) 02/29/2024 00:00:001 00:00:00CBC Venipuncture (in house)hgb 9349-38-83Y47:00:0011.311.5 - 16.5ReMary Hidalgo 02/29/2024 12:44:24 PM > Joyce Delgado 03/01/2024 9:05:23 AM > See phone encounter Coding CBC Venipuncture (in house) 02/29/2024 00:00:001 00:00:00CBC Venipuncture (in house)rbc 7945-64-31N95:00:004.883.5 - 5.5ReMary Hidalgo 02/29/2024 12:44:24 PM > Joyce Delgado 03/01/2024 9:05:23 AM > See phone encounter Coding CBC Venipuncture (in house) 02/29/2024 00:00:001 00:00:00CBC Venipuncture (in house)gran 2327-53-91I78:00:0066.5%35 - 80ReMary Hidalgo 02/29/2024 12:44:24 PM > Joyce Delgado 03/01/2024 9:05:23 AM > See phone encounter Coding CBC Venipuncture (in house) 02/29/2024 00:00:001 00:00:00CBC Venipuncture (in house)mid 3513-39-03X52:00:007.6%2 - 15ReMary Hidalgo 02/29/2024 12:44:24 PM > Joyce Delgado 03/01/2024 9:05:23 AM > See phone encounter Coding CBC Venipuncture (in house) 02/29/2024 00:00:001 00:00:00CBC Venipuncture (in house)lymph 0893-87-80N16:00:0025.9%15 - 50ReRockyMary L 02/29/2024 12:44:24 PM > Joyce Delgado 03/01/2024 9:05:23 AM > See phone encounter Coding CBC Venipuncture (in house) 02/29/2024 00:00:001 00:00:00CBC Venipuncture (in house)wbc 2394-97-52K60:00:007.43.5 - 10ReRockyMary L 02/29/2024 12:44:24 PM > Joyce Delgado 03/01/2024 9:05:23 AM > See phone encounter Coding CBC Venipuncture (in house) 02/29/2024 00:00:00105/25/2023 00:00:00P-Comprehensive Metabolic Panel (CMP)eGFR by Bkglttmcoq9914-09-78O50:00:0081mL/min/1.73m2>59 - mL/min/1.09q9MmpwivqlLis Fairbanks 04/15/2024 2:13:43 PM > see telephone encounter Coding P-Comprehensive Metabolic Pa aimee (CMP) 03/25/2024 00:00:00105/25/2023 00:00:00P-Comprehensive Metabolic Panel (CMP) Zmfbbtw1319-34-27M16:00:006.8g/dL6.0-8.3 - g/dLReLis Samuels 04/15/2024 2:13:43 PM > see telephone encounter Coding P-Comprehensive Metabolic Pa aimee (CMP) 03/25/2024 00:00:00105/25/2023 00:00:00P-Comprehensive Metabolic Panel (CMP) Pyruip1578-99-19I47:00:15076rlgi/V206-264 - mmol/LReviewedGLis mederos 04/15/2024 2:13:43 PM > see telephone encounter Coding P-Comprehensive Metabolic Pa aimee (CMP) 03/25/2024 00:00:00105/25/2023 00:00:00P-Comprehensive Metabolic Panel (CMP) Nmnqbkfrp1158-43-46J87:00:004.2mmol/L3.5-5.3 - mmol/LRevLis Jefferson 04/15/2024 2:13:43 PM > see telephone encounter Coding P-Comprehensive Metabolic Pa aimee (CMP) 03/25/2024 00:00:00105/25/2023 00:00:00P-Comprehensive Metabolic Panel (CMP) Jklyweq3038-61-09X23:00:0093mg/dL65-99 - mg/dLLis White 04/15/2024 2:13:43 PM > see telephone encounter Coding P-Comprehensive Metabolic Pa aimee (CMP) 03/25/2024 00:00:00105/25/2023 00:00:00P-Comprehensive Metabolic Panel (CMP) Uwnaqemjpu1825-00-14C63:00:000.95mg/dL0.70-1.30 - mg/dLLis White 04/15/2024 2:13:43 PM > see telephone encounter Coding P-Comprehensive Metabolic Pa aimee (CMP) 03/25/2024 00:00:00105/25/2023 00:00:00P-Comprehensive Metabolic Panel (CMP)CO2 0242-62-27Y75:00:0023mmol/L22-32 - mmol/LRevieLis Martines 04/15/2024 2:13:43 PM > see telephone encounter Coding P-Comprehensive Metabolic Pa aimee (CMP) 03/25/2024 00:00:00105/25/2023 00:00:00P-Comprehensive Metabolic Panel (CMP) Xdcrkoia9755-10-09B62:00:99847nfsx/L97-108 - mmol/LRevieweLis Guo 04/15/2024 2:13:43 PM > see telephone encounter Coding P-Comprehensive Metabolic Pa aimee (CMP) 03/25/2024 00:00:00105/25/2023 00:00:00P-Comprehensive Metabolic Panel (CMP) Mqwsccn2502-06-77X38:00:008.5mg/dL8.6-10.4 - mg/dLLis Vasquez 04/15/2024 2:13:43 PM > see telephone encounter Coding P-Comprehensive Metabolic Pa aimee (CMP) 03/25/2024 00:00:00105/25/2023 00:00:00P-Comprehensive Metabolic Panel (CMP)BUN 5722-28-38R73:00:0017mg/dL8-23 - mg/dLLis White 04/15/2024 2:13:43 PM > see telephone encounter Coding P-Comprehensive Metabolic Pa aimee (CMP) 03/25/2024 00:00:00105/25/2023 00:00:00P-Comprehensive Metabolic Panel (CMP) Bilirubin, Urinz4596-11-97Z36:00:000.8mg/dL<0.2-1.2 - mg/dLLis White 04/15/2024 2:13:43 PM > see telephone encounter Coding P-Comprehensive Metabolic Pa aimee (CMP) 03/25/2024 00:00:00105/25/2023 00:00:00P-Comprehensive Metabolic Panel (CMP)AST (SGOT)0651-32-55B57:00:0015IU/L<5-46 - IU/LRLis Santillan 04/15/2024 2:13:43 PM > see telephone encounter Coding P-Comprehensive Metabolic Pa aimee (CMP) 03/25/2024 00:00:00105/25/2023 00:00:00P-Comprehensive Metabolic Panel (CMP)ALT (SGPT)4891-97-36H26:00:0015IU/L<5-55 - IU/LRevLis Jefferson 04/15/2024 2:13:43 PM > see telephone encounter Coding P-Comprehensive Metabolic Pa aimee (CMP) 03/25/2024 00:00:00105/25/2023 00:00:00P-Comprehensive Metabolic Panel (CMP) Alkaline Abwfotgjglm7943-80-78A61:00:40360TT/L40-129 - IU/LRevieweLis Guo 04/15/2024 2:13:43 PM > see telephone encounter Coding P-Comprehensive Metabolic Pa aimee (CMP) 03/25/2024 00:00:00105/25/2023 00:00:00P-Comprehensive Metabolic Panel (CMP) Zlyosgn9411-50-86P20:00:004.1g/dL3.5-5.3 - g/dLReLis Samuels 04/15/2024 2:13:43 PM > see telephone encounter Coding P-Comprehensive Metabolic Pa aimee (CMP) 03/25/2024 00:00:00105/25/2023 00:00:00P-Comprehensive Metabolic Panel (CMP)A/G Gsfjz7652-14-42R77:00:001.51.1-2.5 -ReviewedGoLis sparks 04/15/2024 2:13:43 PM > see telephone encounter Coding P-Comprehensive Metabolic Pa aimee (CMP) 03/25/2024 00:00:00
--- OUTSIDE RECORDS SUMMARY | 2025-01-20 10:12 | XMS_ITS | Encounter Summary ---
Author Organization [employer] ([place], [place], [place]) Address [address] [place] [address] Care Team Providers Care Commissary Superintendent Name Role Phone Bryan Salmeron MD Primary Care Provider + [phone] Desi Payne MD Unavailable [phone] Ana Maria Jeffers MD Unavailable [phone] Reason for Visit * Reason Comments Medication Refill Encounter Details Date Type Department Care Team (Late st Contact Info) Description 05/05/2022 Refill [facility] Cardiology [address] [place] [address] Desi Payne MD [address] [facility] [address] [place] [address] Unspecified atrial fibrillation (HCC) Social History Tobacco [...] on file Sexual Orientation Not on file COVID-19 Exposure Response Date Recorded In the last 10 days, have yo u been in contact with someone who was confirmed or suspected to have Coronavirus/COVID-19? No / Unsure 04/14/2022 10:43 AM EST documented as of this encounter Plan of Treatment Not on file documented as of this encounter Visit Diagnoses Diagnosis Unspecified atrial fibrillation (HCC) documented in this encounter Care Teams Commissary Superintendent Relationship Specialty Start Date End Date Bryan Salmeron MD [address] [facility] [address] [place] [address] PCP - General Neurology 03/21/22 Desi Payne MD [address], [facility] [place] [address] [place] [address] Intensive Care Unit Registered Nurse Interventional Cardiology 05/08/22 Ana Maria Jeffers MD [address] [place] [address] Consulting Physician Orthopedic Surgery 06/22/23 documented as of this encounter
--- OUTSIDE RECORDS SUMMARY | 2025-01-20 10:12 | XMS_ITS | Clinical Summary ---
Author Organization [facility] Address [address] [place] [address] Care Team Providers Care Cleaning Porter Name Role Phone Bryan Salmeron MD Primary Care Provider + [phone] Allergies No known active allergies Medications aspirin 81 MG EC tablet Take 81 mg by mouth Daily. Active lisinopril (PRINIVIL,ZESTR IL) 10 MG tablet Take 10 mg by mouth Daily. Active furosemide (LASIX) 20 MG tablet Take 20 mg by mouth 2 (Two) Times a Day. Active omeprazole (PriLOSEC) 20 MG capsule Take 20 mg by mouth Daily. Active allopurinol (ZYLOPRIM) 100 MG tablet Take 100 mg by mouth Daily. Active atorvastatin (LIPITOR) 10 MG tablet Take 10 mg by mouth Daily. Active diltiazem (CARDIZEM) 120 MG tablet Take 120 mg by mouth 4 (Four) Times a Day. Active coenzyme Q10 100 MG capsule Take 100 mg by mouth Daily. Active apixaban (ELIQUIS) 2.5 MG tablet tablet Take 2.5 mg by mouth 2 (Two) Times a Day. Active mupirocin (BACTROBAN) 2 % ointmentIndicat ions:Abscess of upper back excluding scapular region Apply topically 3 (Three) Times a Day. 22 g 8 Active Active Problems No known active problems Social History Tobacco Use Types Packs/Day Years Used Date Smoking Tobacco: Never Smokeless Tobacco: Never Alcohol Use Standard Drinks/Week Comments No 0 (1 standard drink = 0.6 oz pur e alcohol) Abuse Screen Answer Date Recorded Unsafe at Home or Work/School Not on file Feels Threatened by Someone? Not on file 03/2023 Does Anyone Keep You from Co ntacting Others or Doint Things Outside the Home? Not on file 03/04/2023 Physical Sign of Abuse Present Not on file 1 Housing Stability Answer Date Recorded Current Living Arrangements Not on file 02/22 Potentially Unsafe Housing Conditions Not on moshe e 03/04/2023 Family and Community Support Answer Lito e Recorded Help with Day-to-Day Activities Not on file 03/04/2023 Lonely or Isolated Not on file 03/04/2023 Employment Answer Date Recorded Do you want help finding or keeping work or a kevin b? Not on file 03/04/2023 Disabilities Answer Date Recorded Concentrating, Remembering, or Making Decisions Difficulty Not on file 03/04/2023 Doing Errands Independently Difficulty Not on fi le 03/04/2023 Education Answer Date Recorded Help with school or training? Not on file Preferred Language Not on file 03/04/2023 Sex and Gender Information Value Date Recorded Sex Assigned at Not on file Legal Sex Male 8:32 AM EDT Gender Identity Not on file Sexual Orientation Not on file Last Filed Vital Signs Vital Sign Reading Time Taken Comments Blood Pressure 150/92 07/13/2017 8:34 AM EST Pulse 88 07/13/2017 8:34 AM EST Temperature 36.2 C (97.2 F) 07/13/2017 8:34 AM EST Respiratory Rate 20 07/13/2017 8:34 AM EST Oxygen Saturation 99% 07/13/2017 8:34 AM EST Inhaled Oxygen Concentration - - Weight 122 kg (268 lb) 07/13/2017 8:34 AM EST Height 188 cm (6' 2 ) 07/13/2017 8:34 AM EST Body Mass Index 34.41 07/13/2017 8:34 AM EST Plan of Treatment Health Maintenance Due Date Last Done Comments TDAP/TD VACCINES (1 - Tdap) 09/27/1964 COLOGUARD 09/27/1988 COLON CANCER SCREENING 5 YEAR SIGMOIDOSCOPY 09/27/1988 COLONOSCOPY 09/27/1988 COLORECTAL CANCER SCREENING 09/27/1988 CT COLONOGRAPHY 09/27/1988 FECAL OCCULT BLOOD TEST 09/27/1988 FIT Testing (1 year) 09/27/1988 Pneumococcal Vaccine 50+ (1 of 1 - PCV) 09/27/1993 ZOSTER VACCINE (1 of 2) 09/27/1993 ANNUAL PHYSICAL 07/13/2017 RSV Vaccine - Adults (1 - 1-dose 75+ series) 9 COVID-19 Vaccine (2023-25 season) 2024 INFLUENZA VACCINE 02/22/2025 Insurance MEDICARE A & B [facility] OPTIONS Care Teams Cleaning Porter Relationship Specialty Start Date End Date Bryan Salmeron MD PCP - General Neurology 02/21/16
--- OUTSIDE RECORDS SUMMARY | 2025-01-20 10:12 | XMS_ITS | Encounter Summary ---
Author Organization [employer] ([place]) Address [address] [place] [address] Care Team Providers Care Laborer Hoisting Name Role Phone Bryan Salmeron MD Primary Care Provider + [phone] Desi Payne MD Unavailable [phone] Ana Maria Jeffers MD Unavailable [phone] Encounter Details Date Type Department Care Team (Late st Contact Info) Description 11/14/2019 Transcribed Document [facility] Family Medicine [address] [place] [address] ProviderPetr MD [address] [place] [address] Social History Tobacco Use Types Packs/Day Years Used Date Smoking Tobacco: Never Assessed Sex and Gender Information Value Date Recorded Sex Assigned at Not on file Legal Sex Male 3:27 PM CDT Gender Identity Not on file Sexual Orientation Not on file documented as of this encounter Miscellaneous Notes * Cerner Conversion Note - Petr ProviderMD - 11/14/2019 3:36 PM CDT documented in this encounter Plan of Treatment Not on file documented as of this encounter Visit Diagnoses Not on filedocumented in this encounter Care Teams Laborer Hoisting Relationship Specialty Start Date End Date Bryan Salmeron MD [address] [facility] [address] [place] [id number] PCP - General Neurology 03/21/22 Desi Payne MD [address], [place] [address] [place] [address] Personal Banking Advisor Interventional Cardiology 05/08/22 Ana Maria Jeffers MD [address] [place] [address] Consulting Physician Orthopedic Surgery 06/22/23 documented as of this encounter
--- OUTSIDE RECORDS SUMMARY | 2025-01-20 10:12 | XMS_ITS | Encounter Summary ---
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) Procedures NM myocardial perfusion SPECT,pharm(LEXISCAN) [facility] Scheduling [address] [place] [address] Phone: tel: fax: Referral ID Status Reason Start Date Expiration Date Visits Re quested Visits Authorized [id number] Closed 03/20/2022 09/16/2022 1 1 Encounter Details Date Type Department Care Team (Late st Contact Info) Description 03/20/2022 Outside Orders [facility] Scheduling [address] [place] [address] Desi Payne MD [address] [facility] [address] [place] [address] 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, 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) (Primary Dx) Social History Tobacco Use Types Packs/Day Years Used Date Smoking Tobacco: Never Assessed Sex and Gender Information Value Date Recorded Sex Assigned at Not on file Legal Sex Male 3:27 PM CDT Gender Identity Not on file Sexual Orientation Not on file documented as of this encounter Plan of Treatment Pending Results Name Type Priority Associated Diagnoses Date /Time NM myocardial perfusion SPECT,pharm(LEXISCAN) Imaging Routine 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, 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) 03/21/2022 10:02 AM EDT Scheduled Orders Name Type Priority Associated Diagnoses Orde r Schedule NM myocardial perfusion SPECT,pharm(LEXISCAN) Imaging Routine 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, 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) Expected: 03/20/2022, Expires: 04/20/2023 documented as of this encounter Visit Diagnoses Diagnosis 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, 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)- Primary documented in this encounter Care Teams Bench Machine Operator Relationship Specialty Start Date End Date Bryna Salmeron MD [address] [facility] [address] [place] [address] PCP - General Neurology 03/21/22 Desi Payne MD [address], [place] [address] [place] [id number] Expense Clerk Interventional Cardiology 05/08/22 Ana Maria Jeffers MD [address] [place] [address] Consulting Physician Orthopedic Surgery 06/22/23 documented as of this encounter
--- OUTSIDE RECORDS SUMMARY | 2025-01-20 10:12 | XMS_ITS | Encounter Summary ---
Author Organization [employer] ([place], [place], [place], [place]) Address [address] [place] [address] Care Team Providers Care Payroll Tax Specialist Name Role Phone Bryan Salmeron MD Primary Care Provider + [phone] Desi Payne MD Unavailable [phone] Ana Maria Jeffers MD Unavailable [phone] Encounter Details Date Type Department Care Team (Late st Contact Info) Description 11/14/2019 Transcribed Document [facility] [place] [facility] [address] [place] [address] ProviderPetr MD [address] [place] [address] Social History Tobacco Use Types Packs/Day Years Used Date Smoking Tobacco: Never Assessed Sex and Gender Information Value Date Recorded Sex Assigned at Not on file Legal Sex Male 3:27 PM CDT Gender Identity Not on file Sexual Orientation Not on file documented as of this encounter Miscellaneous Notes * Cerner Conversion Note - Petr ProviderMD - 11/14/2019 1:12 PM CDT Yell Suicide Severity Rating Scale (C-SSRS) Entered On: 11/14/2019 14:04 EDT Performed On: 11/14/2019 14:03 EDT by ABDELRAHMAN MOORE RN Yell Suicide Severity Rating Scale (C-SSRS) CSSRS Past Month Wish to be : No CSSRS Past Month Suicidal Thoughts : No CSSRS Lifetime Suicide Behavior : No Suicide Severity Rating Score : 0 Suicide Severity Rating : No Additional Care Required at this time ABDELRAHMAN MOORE RN - 11/14/2019 14:03 EDT Electronically signed by Ingrid [facility] Conversion Electrician'S Helper Cerner at 09/10/2022 12:42 PM CDT documented in this encounter Plan of Treatment Not on file documented as of this encounter Visit Diagnoses Not on filedocumented in this encounter Care Teams Payroll Tax Specialist Relationship Specialty Start Date End Date Bryan Salmeron MD [address] [facility] [address] [place] [address] PCP - General Neurology 03/21/22 Desi Payne MD [address], [facility] [address] [place] [address] Underground Bolting Machine Operator Interventional Cardiology 05/08/22 Ana Maria Jeffers MD [address] [place] [address] Consulting Physician Orthopedic Surgery 06/22/23 documented as of this encounter
--- OUTSIDE RECORDS SUMMARY | 2025-01-20 10:12 | XMS_ITS | Encounter Summary ---
Author Organization [employer] ([place], [place], [place], [place]) Address [address] [place] [address] Care Team Providers Care Labor Union Business Representative Name Role Phone Bryan Salmeron MD Primary Care Provider + [phone] Desi Payne MD Unavailable [phone] Ana Maria Jeffers MD Unavailable [phone] Reason for Visit * Reason Comments Medication Refill Encounter Details Date Type Department Care Team (Late st Contact Info) Description 06/20/2023 Refill [facility] Cardiology [address] [place] [address] Desi Payne MD [address] [facility] [address] [place] [address] Unspecified atrial fibrillation (HCC) Social History Tobacco [...] Date Eugenio rded Speak language other than Finnish at home Not on file 06/05/2023 Want [...] (HCC) documented in this encounter Care Teams Labor Union Business Representative Relationship Specialty Start Date End Date Bryan Salmeron MD 1 [facility] [address] [place] [id number] PCP - General Neurology 03/21/22 Desi Payne MD [address] [place] , [facility] [address] [place] [phone] Junior Estimator Interventional Cardiology 05/08/22 Ana Maria Jeffers MD [address] [place] [address] Consulting Physician Orthopedic Surgery 06/22/23 documented as of this encounter
--- OUTSIDE RECORDS SUMMARY | 2025-01-20 10:12 | XMS_ITS | Encounter Summary ---
Author Organization [employer] ([place], [place], [place], [place]) Address [address] [place] [address] Care Team Providers Care Presiding Steward Name Role Phone Bryan Salmeron MD Primary Care Provider + [phone] Desi Payne MD Unavailable [phone] Ana Maria Jeffers MD Unavailable [phone] Reason for Visit * Reason Comments Medication Refill Encounter Details Date Type Department Care Team (Late st Contact Info) Description 12/17/2024 Refill [facility] Cardiology [address] [place] [address] Valorie Lockhart APRN [address] [facility] [address] [place] [address] Unspecified atrial fibrillation (HCC) Social History Tobacco [...] Date Eugenio rded Speak language other than Tongan at home Not on file 06/05/2023 Want [...] (HCC) documented in this encounter Care Teams Presiding Steward Relationship Specialty Start Date End Date Bryan Salmeron MD 1 [facility] [address] [place] [phone] PCP - General Neurology 03/21/22 Desi Payne MD [address] [place] , [facility] [address] [place] [phone] Wood Molder Interventional Cardiology 05/08/22 Ana Maria Jeffers MD [address] [place] [address] Consulting Physician Orthopedic Surgery 06/22/23 documented as of this encounter
--- OUTSIDE RECORDS SUMMARY | 2025-01-20 10:13 | XMS_ITS | Patient Health Record ---
Author Organization [facility] Address [address] [place] [address] [id number] Care Team Providers Care Special Collections Librarian Name Role Phone Herman Salmeron Primary Care Provider [phone] Darci Bustillo Unavailable [phone] Antionette Patino Unavailable [phone] Iveth Zuniga Unavailable [phone] Allergies No Known Allergies Results Component Value Reference Range Notes P-Comprehensive Metabolic Pa aimee (CMP) (Not yet reviewed by provider) Interpretation: Performing Lab: Notes/Report: Test performed by [facility] [address] [place] [address] , [address], [place] [address] Juan Recinos MD, Field Crop Ii Farmworker CLIA: [id number] Sodium 142 135-145 mmol/L Potassium 4.8 3.5-5.3 [...] Interpretation: Performing Lab: Notes/Report: Test performed by [facility] [address] [facility] [address], [place] [address] Juan Recinos MD, Field Crop Ii Farmworker CLIA: [id number] Cholesterol 137 <200 mg/dL Triglycerides 155 <150 [...] Results: 78 Units: mg/dL % Change: +105% CBC Venipuncture (in house) Reviewed date:03/01/2024 09:05:31 AM Interpretation:hgb 11.3, mch 23.2, mchc 30.3 Performing Lab: Notes/Report: hgb 11.3, mch 23.2, mchc 30.3 wbc 7.4 3.5 - 10 lymph 25.9% 15 - 50 mid 7.6% 2 - 15 gran 66.5% 35 - 80 rbc 4.88 3.5 - 5.5 hgb 11.3 11.5 - 16.5 hct 37.3 35 - 55 mcv 76.3 75 - 100 mch 23.2 25 - 35 mchc 30.3 31 - 38 platlet 195 100 - 400 P-Comprehensive Metabolic Pa aimee (CMP) Reviewed date:03/01/2024 09:05:31 AM Interpretation:gluc 101, bun 32, alk phos 136 Performing Lab: Notes/Report: Test performed by [facility] [address] [place], [place] [address] [place] , [address], [place] [address] Juan Recinos MD, Field Crop Ii Farmworker CLIA: [id number] Sodium 141 135-145 mmol/L Potassium 4.6 3.5-5.3 mmol/L Chloride 106 97-108 mmol/L CO2 24 22-32 mmol/L Glucose 101 65-99 mg/dL BUN 32 8-23 mg/dL Creatinine 1.05 0.70-1.30 mg/dL Calcium 9.2 8.6-10.4 mg/dL eGFR by Creatinine 72 >59 mL/min/1.73m2 Protein 7.2 6.0-8.3 g/dL Albumin 4.4 3.5-5.3 g/dL Alkaline Phosphatase 136 40-129 IU/L ALT (SGPT) 19 <5-55 IU/L AST (SGOT) 24 <5-46 IU/L Bilirubin, Total 0.2 <0.2-1.2 mg/dL A/G Ratio 1.6 1.1-2.5 P-Lipid Panel Reviewed date:03/01/2024 09:05:31 AM Interpretation:hdl 32 Performing Lab: Notes/Report: Test performed by [facility], [address] [address] Juan Recinos MD, Field Crop Ii Farmworker CLIA: [id number] Cholesterol 99 <200 mg/dL Triglycerides 143 <150 mg/dL HDL Cholesterol 32 >39 mg/dL Cholesterol / HDL Ratio 3.09 0.00-4.99 Ratio Non-HDL Cholesterol 67 <130 mg/dL LDL Cholesterol (Calculation) 38 <130 mg/dL LDL Cholesterol Levels* Less than 100 mg/dL Optimal 100 to 129 mg/dL Near Optimal/ Above Optimal 130 to 159 mg/dL Borderline High 160 to 189 mg/dL High 190 mg/dL and above Very High * Categories as recommended by the 2004 ATPIII guidelines LDL/HDL Ratio 1.2 <3.3 Ratio LDL Cholesterol Patient History Test Date: 02/29/2024 LDL Results: 38 Units: mg/dL % Change: - P-Comprehensive Metabolic Pa aimee (CMP) Reviewed date:04/15/2024 02:13:52 PM Interpretation:Ca 8.5 Performing Lab: Notes/Report: Test performed by [facility] [address] [place] [address] Juan Recinos MD, Field Crop Ii Farmworker CLIA: [id number] Sodium 142 135-145 mmol/L Potassium 4.2 3.5-5.3 mmol/L Chloride 105 97-108 mmol/L CO2 23 22-32 mmol/L Glucose 93 65-99 mg/dL BUN 17 8-23 mg/dL Creatinine 0.95 0.70-1.30 mg/dL Calcium 8.5 8.6-10.4 mg/dL eGFR by Creatinine 81 >59 mL/min/1.73m2 Protein 6.8 6.0-8.3 g/dL Albumin 4.1 3.5-5.3 g/dL Alkaline Phosphatase 116 40-129 IU/L ALT (SGPT) 15 <5-55 IU/L AST (SGOT) 15 <5-46 IU/L Bilirubin, Total 0.8 <0.2-1.2 mg/dL A/G Ratio 1.5 1.1-2.5 P-Culture, Wound Aerobic w/G saray Stain Reviewed date:02/17/2024 04:36:34 PM Interpretation:No growth, no further testing needed Performing Lab: Notes/Report: Test performed by [facility] [address] , [address], [place] [address] Juan Recinos MD, Field Crop Ii Farmworker CLIA: [id number] Specimen Source Abscess - mid left back Gram Stain See Below Few Polymorphonuclear leukocytes Moderate Gram Positive Cocci In pairs and clusters Culture, Wound Aerobic w/Gram Stain See Below Preliminary Report : No growth, reincubate Final Report : No growth Final Report : No Further testing indicated Echocardiogram Reviewed date:02/18/2024 09:34:57 AM Interpretation:Abnormal Performing Lab: Notes/Report: Abnormal Medications Medication SIG (Take, Route, Frequency, Duration) Notes Start Date End Date Status Furosemide 20 MG 2 orally once a day 08/21/2020 Active Omeprazole 20 MG TAKE 1 CAPSULE BY MO UTH AT BEDTIME; Duration: 90 Active Sertraline HCl 100 MG TAKE 1 TABLET BY M OUTH TWICE A DAY; Duration: 90 Not-Taking Lisinopril 40 MG TAKE 1 TABLET BY SIMRAN TH EVERY DAY FOR 90 DAYS Active Atorvastatin Calcium 20 MG 1 tablet Orally Once a day Not-Taking Allopurinol 300 MG 1 tab(s) orally once a day Not-Taking Aspirin 81 MG 1 tab(s) orally once a day Active Meclizine HCl 12.5 MG 1 tablet as needed Orally 3 times a day as needed 01/16/2025 Active Allopurinol 300 MG TAKE 1 TABLET BY SIMRAN TH EVERY DAY FOR 90 DAYS; Duration: 90 Not-Taking Nitrostat 0.4 MG 1 tab(s) sublinguall y every 5 minutes prn chest pain Active Eliquis 5 MG 1 tab(s) orally 2 ti mes a day Active Carvedilol 25 MG 1 tablet with food Orally Twice a day; Duration: 90 days Active Sertraline HCl 100 MG TAKE 1 TABLET BY M OUTH TWICE A DAY Active Triamterene-HCTZ 37.5-25 MG 1 tab(s) orally once a day Active Doxazosin Mesylate 2 MG TAKE 2 TABLETS B Y MOUTH DAILY AT BEDTIME 90 Not-Taking Potassium Chloride ER 10 MEQ TAKE 1 CAPSULE BY MOUTH TWICE A DAY WITH FOOD FOR 30 DAYS Active QUEtiapine Fumarate 25 MG 1 tablet at bedtime Orally Once a day; Duration: 90 days Not-Taking Immunizations Vaccine Route Administration Date Status Comme nts COVID 19 Pfizer Unknown 06/29/2020 Administered COVID 19 Pfizer Unknown 07/20/2020 Administered COVID 19 Pfizer Unknown 03/26/2021 Administered Fluzone High Dose (65yr and older) IM Intramuscular 02/23/2013 Administered Fluzone High Dose (65yr and older) IM Intramuscular 04/08/2014 Administered Fluzone High Dose (65yr and older) IM Intramuscular 02/06/2020 Administered Fluzone High Dose (65yr and older) Unknown 02/15/2021 Administered Fluzone High Dose (65yr and older) IM Intramuscular 02/10/2022 Administered Fluzone High Dose (65yr and older) IM Intramuscular 04/13/2023 Administered Fluzone High Dose (65yr and older) IM Intramuscular 05/09/2024 Administered PNEUMOVAX 23 VACCINE Unknown 03/28/2017 Administered Tetanus Tdap-Adacel (over 7yrs) IM Intramuscular 08/18/2011 Administered xFluzone High Dose-private (65yr&older) Unknown 03/28/2017 Administered xFluzone High Dose-private (65yr&older) Unknown 03/22/2018 Administered iPwxbsvt-domqzfpuj-svnybea e pts. IM Intramuscular 03/31/2012 Administered Zostavax Unknown 02/27/2009 Administered Problems Problem Type SNOMED Code ICD Code Onset Dates Problem Status W/U Status Risk Notes Problem Peripheral circulatory disorder associated with diabetes mellitus (029846633) Type 2 diabetes mellitus with other circulatory complications (E11.59) Active confirmed Problem Hyperglycemia (69397480) Hyperglycemia (R73.9) Active confirmed Problem Essential hypertension (67394104) Essential hypertension (I10) Active confirmed Problem Rosacea (505460930) Rosacea (L71.9) Active confirmed Problem Sebaceous cyst (348827468) Sebaceous cyst (L72.3) Active confirmed Problem Hyperuricemia (65238748) Hyperuricemia (E79.0) Active confirmed Problem Mixed anxiety and depressive disorder (171346688) Depression with anxiety (F41.8) Active confirmed Problem Chronic diastolic heart failure (168953515) Diastolic CHF, chronic (I50.32) Active confirmed Problem Localized edema (6381622) Localized edema (R60.0) Active confirmed Problem Mixed hyperlipidemia (519251431) Mixed hyperlipidemia (E78.2) Active confirmed Problem Primary insomnia (8374111) Primary insomnia (F51.01) Active confirmed Problem Hypertensive heart failure (09164753) Hypertensive heart disease with heart failure (I11.0) Active confirmed Problem Persistent atrial fibrillation (858843595) Persistent atrial fibrillation (I48.1) Active confirmed Problem Localized infection of skin AND/OR subcutaneous tissue (386964727) Local infection of the skin and subcutaneous tissue, unspecified (L08.9) Active confirmed Problem Long-term current use of anticoagulant (235415087) long-term (current) use of anticoagulants (Z79.01) Active confirmed Problem Elevated PSA (417208156) Elevated PSA (R97.2) Active confirmed Problem Obese class II (184146304081519) BMI 35.0-35.9,adult (Z68.35) Active confirmed Problem 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 (463965842786125) Atherosclerosis of um[place]illa tribe coronary artery of [place] tribe heart without angina pectoris (I25.10) Active confirmed Problem Reactive depression (situational) (79978738) Situational depression (F43.21) Active confirmed Problem Atrial fibrillation (78299846) Atrial fibrillation, unspecified type (I48.91) Active confirmed Problem Abnormal gait (87487356) Imbalance (R26.89) Active confirmed Problem Recurrent falls (130870401) Frequent falls (R29.6) Active confirmed Problem Body mass index 30.00 to 34.99 (144416182535335) BMI 34.0-34.9,adult (Z68.34) Active confirmed Problem Shoulder joint pain (304968585) Acute pain of right shoulder (M25.511) Active confirmed Problem Artificial knee joint present (470509877638) Status post right knee replacement (Z96.651) Active confirmed Problem Atherosclerotic heart disease of umatilla tribe coronary artery without angina pectoris (863562347257178) Atherosclerosis of um[place] tribe coronary artery without angina pectoris, unspecified whether um[place] tribe or transplanted heart (I25.10) Active confirmed Problem Cardiomyopathy (60291503) Cardiomyopathy, unspecified type (I42.9) Active confirmed Problem Heart failure (89065782) Heart failure, unspecified HF chronicity, unspecified heart failure type (I50.9) Active confirmed Problem Type 2 diabetes mellitus with other specified complication, unspecified whether jail insulin use (E11.69) Active confirmed Problem Acute on chronic systolic heart failure (471048663) Acute on chronic systolic congestive heart failure (I50.23) Active confirmed Problem Persistent atrial fibrillation (883500954) Persistent atrial fibrillation (I48.19) Active confirmed Vital Signs Heart Rate 67 /min 01/16/2025 Blood pressure diastolic 90 mm Hg 01/16/2025 Height 72 in 01/16/2025 Blood pressure systolic 142 mm Hg 01/16/2025 Weight 253.8 lbs 01/16/2025 BMI 34.42 kg/m2 01/16/2025 Encounters Encounter Location Date Provider Diagnosis [facility] [address] [facility] [address] [place] [id number] 02/08/2024 Herman Salmeron Acute on chronic systolic congestive heart failure I50.23 ; Localized edema R60.0 ; Sebaceous cyst L72.3 and Local infection of the skin and subcutaneous tissue, unspecified L08.9 [facility] [facility] [facility] [address] [place] [id number] 02/09/2024 Darci Bustillo Sebaceous cyst L72.3 and Local infection of the skin and subcutaneous tissue, unspecified L08.9 [facility] [address] [place] M[place]ough [id number] 02/29/2024 Herman Salmeron Essential hypertensi on I10 and Mixed hyperlipidemia E78.2 [facility] [address] [place] [facility] [address] [place], [place] [id number] 03/25/2024 Herman Salmeron Persistent atrial fibrillation I48.19 ; Diastolic CHF, chronic I50.32 and Localized edema R60.0 [facility] [address] [place] [facility] [address] [place], [place] [id number] 04/11/2024 Herman Salmeron Essential hypertensi on I10 ; Persistent atrial fibrillation I48.1 ; Depression with anxiety F41.8 ; Localized edema R60.0 ; Sebaceous cyst L72.3 and Diastolic CHF, chronic I50.32 [facility] [address] [place] [facility] [address] [place], [place] [id number] 05/09/2024 Herman Salmeron Essential hypertensi on I10 ; Persistent atrial fibrillation I48.1 ; Depression with anxiety F41.8 ; Sebaceous cyst L72.3 and Encounter for immunization Z23 [facility] [address] [place] [facility] [address] [place], [place] [id number] 06/17/2024 Herman Salmeron Sebaceous cyst L72.3 [facility] [address] [place] [facility] [address] [place], [place] [id number] 06/27/2024 Antionette Patino Wound of skin R23.8 [facility] [address] [place] [facility] [address] [place], [place] [id number] 01/11/2025 Iveth Zuniga Essential hypertensi on I10 and Mixed hyperlipidemia E78.2 [facility] [address] [place] [facility] [address] [place], [place] [id number] 01/16/2025 Herman Salmeron Imbalance R26.89 ; Persistent atrial fibrillation I48.19 ; Status post right knee replacement Z96.651 ; terminal superintendent (current) use of anticoagulants Z79.01 ; Diastolic CHF, chronic I50.32 ; Mixed hyperlipidemia E78.2 ; Essential hypertension I10 ; Cardiomyopathy, unspecified type I42.9 ; Type 2 diabetes mellitus with other circulatory complications E11.59 ; Type 2 diabetes mellitus with other specified complication, unspecified whether jail insulin use E11.69 ; Hypertensive heart disease with heart failure I11.0 ; Atrial fibrillation, unspecified type I48.91 and BMI 34.0-34.9,adult Z68.34 [facility] [address] [place], [place] [id number] 01/27/2024 J Bryan Salmeron [facility] [address] [place], [place] [id number] 02/09/2024 Herman Salmeron [facility] [address] [place], [place] [id number] 02/18/2024 J Bryan Salmeron [facility] [address] [place], [place] [id number] 02/18/2024 J Bryan Salmeron [facility] [address] [place], [place] [id number] 03/01/2024 Herman Bryan Salmeron [facility] [address] [place], [place] [id number] 04/15/2024 Herman Bryan Jaron [facility] [address] [place], [place] [id number] 05/13/2024 Herman Bryan Salmeron [facility] [address] [place], [place] [id number] 10/10/2024 Herman Salmeron Situational anxiety F41.8 and Localized edema R60.0 Assessments Encounter Date Diagnosis (ICD Code) Assessment Notes Treatment Notes Treatment Clinical Notes Section Notes 06/17/2024 Sebaceous cyst (ICD-10 - L72.3) 06/27/2024 Wound of skin (ICD-10 - R23.8) wash gently with soap and water starting tomorrow 10/10/2024 Situational anxiety (ICD-10 - F41.8) 04/11/2024 Persistent atrial fibrillation (ICD-10 - I48.1) 05/09/2024 Essential hypertension (ICD-10 - I10) 05/09/2024 Persistent atrial fibrillation (ICD-10 - I48.1) 01/11/2025 Essential hypertension (ICD-10 - I10) 01/11/2025 Mixed hyperlipidemia (ICD-10 - E78.2) 01/16/2025 Imbalance (ICD-10 - R26.89) 01/16/2025 Persistent atrial fibrillation (ICD-10 - I48.19) 02/08/2024 Acute on chronic systolic congestive heart failure (ICD-10 - I50.23) 02/09/2024 Sebaceous cyst (ICD-10 - L72.3) Advised to return to office tomorrow for dressing change but he feels he can manage this at home since he lives some distance from the office. He likely will not need additional packing however if he should find copious amount of drainage on the dressing by tomorrow, it should be repacked. 02/09/2024 Local infection of the skin and subcutaneous tissue, unspecified (ICD-10 - L08.9) 02/29/2024 Essential hypertension (ICD-10 - I10) 02/08/2024 Localized edema (ICD-10 - R60.0) 03/25/2024 Diastolic CHF, chronic (ICD-10 - I50.32) 03/25/2024 Persistent atrial fibrillation (ICD-10 - I48.19) 04/11/2024 Essential hypertension (ICD-10 - I10) 04/11/2024 Depression with anxiety (ICD-10 - F41.8) 03/25/2024 Localized edema (ICD-10 - R60.0) 02/29/2024 Mixed hyperlipidemia (ICD-10 - E78.2) 02/08/2024 Sebaceous cyst (ICD-10 - L72.3) 01/16/2025 Status post right knee replacement (ICD-10 - Z96.651) 05/09/2024 Depression with anxiety (ICD-10 - F41.8) continue current therapy 10/10/2024 Localized edema (ICD-10 - R60.0) 04/11/2024 Localized edema (ICD-10 - R60.0) 05/09/2024 Sebaceous cyst (ICD-10 - L72.3) 01/16/2025 long-term (current) use of anticoagulants (ICD-10 - Z79.01) 02/08/2024 Local infection of the skin and subcutaneous tissue, unspecified (ICD-10 - L08.9) 04/11/2024 Sebaceous cyst (ICD-10 - L72.3) 01/16/2025 Diastolic CHF, chronic (ICD-10 - I50.32) 05/09/2024 Encounter for immunization (ICD-10 - Z23) 01/16/2025 Mixed hyperlipidemia (ICD-10 - E78.2) 04/11/2024 Diastolic CHF, chronic (ICD-10 - I50.32) 01/16/2025 Essential hypertension (ICD-10 - I10) 01/16/2025 Cardiomyopathy, unspecified type (ICD-10 - I42.9) 01/16/2025 Type 2 diabetes mellitus with other circulatory complications (ICD-10 - E11.59) 01/16/2025 Type 2 diabetes mellitus with other specified complication, unspecified whether jail insulin use (ICD-10 - E11.69) 01/16/2025 Hypertensive heart disease with heart failure (ICD-10 - I11.0) 01/16/2025 Atrial fibrillation, unspecified type (ICD-10 - I48.91) 01/16/2025 BMI 34.0-34.9,adult (ICD-10 - Z68.34) Plan Of Treatment Pending Test Test Name Order Date Carotid Duplex 01/16/2025 MRI : Brain w/o contrast 01/16/2025 P-Comprehensive Metabolic Panel (CMP) P-Lipid Panel 01/11/2025 Next Appt Details Provider Name:Herman Calderón er, 01/30/2025 02:45:00 PM, [address], [place], [place], [id number], Insurance Providers Payer Name Payer Address Payer Phone Subscriber Number Group Number Insured Name Patient Relationship to Insured Coverage Start Date Coverage End Date MEDICARE PART B [address] [address] [place] [address] [id number] [place] Self - patient is the insured [facility] [facility] [address] [place] [id number] [place] Self - patient is the insured Medications Administered Medication Instructions Date of Administration Dosage Notes Dexamethasone 04/07/2013 1 mL Medical (General) History Medical History History ICD Code Hyperlipidemia Acid Reflux Hypertension 06/29/11 Testosterone WNL Prevnar 02/2018 [facility] Pneumovax ca, 2014 COVID 19 Vaccine, Pfizer Feb -26, 2021 Surgical History Surgery Date(Month/Year) Hospitalization History Reason Date(Month/Year)
--- OUTSIDE RECORDS SUMMARY | 2025-01-20 10:13 | XMS_ITS | Encounter Summary ---
Author Organization [employer] ([place], [place], [place], [place]) Address [address] [place] [address] Care Team Providers Care Punchboard Inserter Name Role Phone Bryan Salmeron MD Primary Care Provider + [phone] Desi Payne MD Unavailable [phone] Ana Maria Jeffers MD Unavailable [phone] Encounter Details Date Type Department Care Team (Late st Contact Info) Description 11/14/2019 Transcribed Document [facility] [place] [facility] [place] [address] ProviderPetr MD [address] [place] [address] Social History Tobacco Use Types Packs/Day Years Used Date Smoking Tobacco: Never Assessed Sex and Gender Information Value Date Recorded Sex Assigned at Not on file Legal Sex Male 3:27 PM CDT Gender Identity Not on file Sexual Orientation Not on file documented as of this encounter Miscellaneous Notes * Cerner Conversion Note - Petr ProviderMD - 11/14/2019 3:45 PM CDT ED Discharge Entered On: 11/14/2019 15:45 EDT Performed On: 11/14/2019 15:45 EDT by Keri Cedeno RN Discharge Process Patient Disposition : Discharge Personal Belongings With Patient : Yes Patient Education Completed : Yes Teaching Evaluation : Verbalizes understanding IV Discontinued : Yes Nursing Documentation Completed : Yes Keri Cedeno RN - 11/14/2019 15:45 EDT ED Discharge Discharge To : Home with ambulatory/outpatient follow-up Mode Of Departure : Private vehicle Accompanied By : Spouse Discharge Instructions Reviewed With, Opportunity For Questions Given : Patient, Spouse Prescriptions Given to Patient : Keri Gruber, SCOTT - 11/14/2019 15:45 EDT Electronically signed by [facility] Conversion Operations [employer] at 09/10/2022 12:19 PM CDT documented in this encounter Plan of Treatment Not on file documented as of this encounter Visit Diagnoses Not on filedocumented in this encounter Care Teams Punchboard Inserter Relationship Specialty Start Date End Date Bryan Salmeron MD [address] [place] [id number] PCP - General Neurology 03/21/22 Desi Payne MD [address] [place] [address] On Site Construction Superintendent Interventional Cardiology 05/08/22 Ana Maria Jeffers MD [address] [place], [place] [id number] Consulting Physician Orthopedic Surgery 06/22/23 documented as of this encounter
--- OUTSIDE RECORDS SUMMARY | 2025-01-20 10:13 | XMS_ITS | Encounter Summary ---
Author Organization [employer] ([place], [place], [place], [place]) Address [address] [place] [address] Care Team Providers Care Security Clerk Name Role Phone Bryan Salmeron MD Primary Care Provider + [phone] Desi Payne MD Unavailable [phone] Ana Maria Jeffers MD Unavailable [phone] Encounter Details Date Type Department Care Team (Late st Contact Info) Description 11/14/2019 Transcribed Document [facility] [place] [address] [place] [address] ProviderPetr MD [address] [place] [address] Social History Tobacco Use Types [...] ProviderMD - 11/14/2019 1:12 PM CDT ED Assessment Entered On: 11/14/2019 14:12 EDT Performed On: 11/14/2019 14:07 EDT by ABDELRAHMAN MOORE METAL DOOR ASSEMBLER Quick Look Assessment Level of Consciousness : Alert, Awake Affect/Behavior : Appropriate, Calm, Cooperative Orientation : Oriented x 4 Skin Temperature : Warm Skin Description : Dry ABDELRAHMAN MOORE RN - 11/14/2019 14:07 EDT ED General-Functional Assess Communication Barrier : None Primary Language : Serbian Any Spiritual/Cultural Needs or Requests : No Currently in Unsafe Situation : No ABDELRAHMAN MOORE RN - 11/14/2019 14:07 EDT Social Habits Smoking Status : Cigars or pipes but not daily within last 30 days Smokeless Tobacco Status : Never Desires Tobacco Cessation Medication : No Reason for No Tobacco Cessation Medication : Refuses FDA approved medications Desires Tobacco Cessation Calc : 1 ABDELRAHMAN MOORE RN - 11/14/2019 14:07 EDT Social History (As Of: 11/14/2019 14:12:54 EDT) Tobacco: Last Used: quit cigar smoking in 2007,. (Last Updated: 03/19/2018 07:44:45 EDT by SHEILA RUFFIN, RN) Alcohol: # Drinks/Day: 2. Total Drinks/Week: 14. (Last Updated: 03/19/2018 07:45:03 EDT by SHEILA RUFFIN, RN) Substance Abuse: Drug Use Hx: No. (Last Updated: 03/19/2018 07:45:06 EDT by SHEILA RUFFIN, RN) Cardiovascular ASMT, ED Cardiovascular Assessment WDL : WDL with exceptions Cardiovascular Symptoms : Syncope/Fainting at rest, Syncope/Fainting with activity Heart Rhythm : Irregular Nail Bed Color : [place] Chest Pain : No Capillary Refill, Right Hand : Less than/Equal to (</=) 2 seconds Capillary Refill, Left Foot : Less than/Equal to (</=) 2 seconds Clubbing Present : No ABDELRAHMAN MOORE RN - 11/14/2019 14:07 EDT Respiratory Breath Sounds Auscultated : Posterior Respiratory Assessment WDL : WDL Cough : None Respiratory Assessment Comment : 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 ABDELRAHMAN MOORE RN - 11/14/2019 14:07 EDT documented in this encounter Plan of Treatment Not on file documented as of this encounter Visit Diagnoses Not on filedocumented in this encounter Care Teams Security Clerk Relationship Specialty Start Date End Date Bryan Salmeron MD [address] [phone] PCP - General Neurology 03/21/22 Desi Payne MD [address] , [facility] [address] [id number] Rubber Trimmer Interventional Cardiology 05/08/22 Ana Maria Jeffers MD [address] [place] [address] Consulting Physician Orthopedic Surgery 06/22/23 documented as of this encounter
--- OUTSIDE RECORDS SUMMARY | 2025-01-20 10:13 | XMS_ITS | Encounter Summary ---
Author Organization [employer] ([place], [place], [place], [place]) Address [address] [place] [address] Care Team Providers Care Pumpman Name Role Phone Bryan Lucas MD Primary Care Provider [phone] Desi Payne MD Unavailable [phone] Ana Maria Jeffers MD Unavailable [phone] Encounter Details Date Type Department Care Team (Late st Contact Info) Description 11/14/2019 Transcribed Document [facility] Family Medicine [address] [place] [address] ProviderPetr MD [address] [place] [address] Social History Tobacco Use Types Packs/Day Years Used Date Smoking Tobacco: Never Assessed Sex and Gender Information Value Date Recorded Sex Assigned at Not on file Legal Sex Male 3:27 PM CDT Gender Identity Not on file Sexual Orientation Not on file documented as of this encounter Miscellaneous Notes * Cerner Conversion Note - Petr ProviderMD - 11/14/2019 3:38 PM CDT [facility] [address] ELY RUDD :1945 Visit Time:11/14/2019 Your Visit Summary Your Care Team Primary Provider: CAMERON PINTO Secondary Provider: Your Diagnosis Dehydration Syncope Syncope/Near syncope Medical Information You may obtain a copy of your Emergency Department visit from Medical Records by calling the hospital phone number listed above and asking to be directed to the Medical Records Department. If you had special tests, such as EKG???s or X-rays, the interpretation of your tests given to you by the Emergency Department Physician is a preliminary report. Some fractures and illnesses fail to show up on preliminary tests. These will be reviewed again and we will call you if there are any new suggestions. If your symptoms continue notify your physician. After you leave, you should follow the instructions provided. What to do next Follow-Up Appointments Follow Up with BRYAN LUCAS When Within 2 to 3 days Comments Call for follow up appointment Call in the AM Follow-up as instructed Return if condition worsens Symptomatic care is recommended. Take all medications as prescribed and instructed. Where: [address] [place] [address] ([address]) Allergies No Known Allergies Immunizations This Visit No Immunizations Found Medications What How Much When Instructions Next Dose allopurinol 300 Milligram(s) Oral Every Day apixaban (Eliquis) 5 Milligram(s) Oral Two Times A Day aspirin 325 Milligram(s) Oral Every Day atorvastatin 20 Milligram(s) Oral At Bedtime dilTIAZem 180 Milligram(s) Oral Every Day doxazosin 1 Milligram(s) Oral At Bedtime lisinopril 40 Milligram(s) Oral At Bedtime omeprazole 20 Milligram(s) Oral Every Day ubiquinone (Co-Q10) 200 Milligram(s) Oral Every Day The home medications listed are only as accurate as the information you provided. Please continue taking all of your medications prescribed by your Primary Care Provider unless specifically told to change or discontinue the medication. Please direct any questions regarding your home medications to your Primary Care Provider. Take your medications faithfully. Do NOT skip medication. Do NOT stop taking medications without the direction of a physician. Carry a list of your medications with you at all times, and take this medication list with you to your first follow up visit. Report any side effects. Avoid herbal remedies unless discussed with your physician. As part of your treatment plan, your physician may have prescribed a limited course of a controlled substance. This medication may be given to help people with moderate or severe pain or for other medical conditions, but there are risks involved with treatment. Common side effects may include nausea, constipation, drowsiness, sweating, itching, dry mouth, and rash. More serious side effects may include cognitive and motor impairment, like problems with thinking, concentrating, alertness, and movement (e.g. slowed reflexes), and driving and operating heavy machinery can be dangerous. It is important for you to talk to your physician if you have these side effects or questions. These controlled substances can produce physical dependence and be habit-forming if taken for an extended period of time, which means that the body has gotten used to them and may experience withdrawal symptoms if they are abruptly stopped. Withdrawal symptoms can include runny nose, sweating, goose bumps, diarrhea, abdominal cramping, rapid heartbeat, difficulty sleeping, and nervousness. Please dispose of unused and medications per pharmacy guidance. Test Results Laboratory or Other Results This Visit (last charted value for your 11/14/2019 visit) Hematology 11/14/2019 1:58 PM WBC: 8.0 K/uL -- Normal range between ( 3.6 and 9.5 ) RBC: 4.74 Million/uL -- Normal range between ( 4.20 and 5.70 ) Hct: 43.1 % -- Normal range between ( 40.1 and 51.0 ) Hgb: 13.9 g/dL -- Normal range between ( 13.5 and 17.3 ) Platelet Count: 171 K/uL -- Normal range between ( 163 and 369 ) MCH: 29.3 pg -- Normal range between ( 25.6 and 32.2 ) MCHC: 32.3 Gram/dL -- Normal range between ( 32.2 and 36.5 ) MCV: 90.9 fL -- Normal range between ( 79.0 and 94.8 ) Slide Review: No Eos %: 1.6 % -- Normal range between ( 0.0 and 7.0 ) [place] #: 0.71 K/uL -- Normal range between ( 0.16 and 1.00 ) Eos #: 0.13 x10(3)/uL -- Normal range between ( 0.00 and 0.80 ) [place] %: 8.9 % -- Normal range between ( 3.0 and 9.0 ) Baso %: 0.4 % -- Normal range between ( 0.0 and 1.5 ) Baso #: 0.03 x10(3)/uL -- Normal range between ( 0.00 and 0.20 ) RDW: 13.9 % -- Normal range between ( 11.7 and 14.9 ) Neut %: 75.3 % -- Normal range between ( 34.0 and 71.0 ) Neut #: 6.00 K/uL -- Normal range between ( 1.56 and 6.13 ) Lymph %: 13.4 % -- Normal range between ( 19.3 and 53.1 ) Lymph #: 1.07 x10(3)/uL -- Normal range between ( 1.00 and 3.90 ) MPV: 11.4 fL -- Normal range between ( 9.4 and 12.4 ) IG#: 0.03 x10(3)/uL -- Normal range between ( 0.00 and 0.05 ) IG%: 0.40 % -- Normal range between ( 0.00 and 0.60 ) General Chemistry 11/14/2019 1:58 PM Creatinine Level: 2.10 mg/dL -- Normal range between ( 0.70 and 1.30 ) Sodium Level: 138 mmol/L -- Normal range between ( 136 and 146 ) Potassium Level: 3.4 mmol/L -- Normal range between ( 3.5 and 5.1 ) Chloride Level: 105 mmol/L -- Normal range between ( 102 and 112 ) Carbon Dioxide Level: 22 mmol/L -- Normal range between ( 21 and 32 ) Anion Gap: 14 -- Normal range between ( 9 and 20 ) Bilirubin Total: 0.4 mg/dL -- Normal range between ( 0.2 and 1.2 ) A/G Ratio: 0.8 -- Normal range between ( 1.1 and 2.5 ) ALT: 37 Units/Liter -- Normal range between ( 16 and 61 ) AST: 34 Units/Liter -- Normal range between ( 5 and 37 ) Globulin: 4.4 Gram/dL -- Normal range between ( 1.5 and 4.5 ) Alk Phos: 76 Units/Liter -- Normal range between ( 27 and 136 ) Bun/Creatinine: 14.3 -- Normal range between ( 8.0 and 20.0 ) Calcium Level: 9.1 mg/dL -- Normal range between ( 8.4 and 10.1 ) eGFR : 37 mL/min/1.73m2 eGFR NonAfrican: 31 mL/min/1.73m2 Glucose Level: 92 mg/dL -- Normal range between ( 74 and 106 ) Magnesium Level: 2.1 mg/dL -- Normal range between ( 1.5 and 2.4 ) Blood Urea Nitrogen: 30 mg/dL -- Normal range between ( 7 and 22 ) Protein Total: 7.9 Gram/dL -- Normal range between ( 6.4 and 8.2 ) Albumin Level: 3.5 Gram/dL -- Normal range between ( 3.4 and 5.0 ) Lipase Level: 215 Units/Liter -- Normal range between ( 73 and 393 ) Cardiac Specific Markers 11/14/2019 1:58 PM Troponin I Ultra: <0.015 ng/mL -- Normal range between ( 0.015 and 0.045 ) ProBNP: 1799 pg/mL -- Normal range between ( 0 and 450 ) Coagulation 11/14/2019 1:58 PM INR: 1.0 -- Normal range between ( 0.9 and 1.1 ) PTT: 27.8 Second(s) -- Normal range between ( 24.0 and 34.0 ) PT: 10.7 Second(s) -- Normal range between ( 9.6 and 12.0 ) Computed Tomography 11/14/2019 2:[address] Head WO: CT Head WO Diagnostic Radiology 11/14/2019 2:05 PM CR Chest 1 Vw Portable: CR Chest 1 Vw Portable Education Materials Rehydration, Adult Rehydration is the replacement of body fluids and salts and minerals (electrolytes) that are lost during dehydration. Dehydration is when there is not enough fluid or water in the body. This happens when you lose more fluids than you take in. Common causes of dehydration include: ??? Vomiting. ??? Diarrhea. ??? Excessive sweating, such as from heat exposure or exercise. ??? Taking medicines that cause the body to lose excess fluid (diuretics). ??? Impaired kidney function. ??? Not drinking enough fluid. ??? Certain illnesses or infections. ??? Certain poorly controlled long-term (chronic) illnesses, such as diabetes, heart disease, and kidney disease. Symptoms of mild dehydration may include thirst, dry lips and mouth, dry skin, and dizziness. Symptoms of severe dehydration may include increased heart rate, confusion, fainting, and not urinating. You can rehydrate by drinking certain fluids or getting fluids through an IV tube, as told by your health care provider. What are the risks? Generally, rehydration is safe. However, one problem that can happen is taking in too much fluid (overhydration). This is rare. If overhydration happens, it can cause an electrolyte imbalance, kidney failure, or a decrease in salt (sodium) levels in the body. How to rehydrate Follow instructions from your health care provider for rehydration. The kind of fluid you should drink and the amount you should drink depend on your condition. ??? If directed by your health care provider, drink an oral rehydration solution (ORS). This is a drink designed to treat dehydration that is found in pharmacies and retail stores. ? Make an ORS by following instructions on the package. ? Start by drinking small amounts, about ?? cup (120 mL) every 5???10 minutes. ? Slowly increase how much you drink until you have taken the amount recommended by your health care provider. ??? Drink enough clear fluids to keep your urine clear or pale yellow. If you were instructed to drink an ORS, finish the ORS first, then start slowly drinking other clear fluids. Drink fluids such as: ? Water. Do not drink only water. Doing that can lead to having too little sodium in your body (hyponatremia). ? Ice chips. ? Fruit juice that you have added water to (diluted juice). ? Low-calorie sports drinks. ??? If you are severely dehydrated, your health care provider may recommend that you receive fluids through an IV tube in the hospital. ??? Do not take sodium tablets. Doing that can lead to the condition of having too much sodium in your body (hypernatremia). Eating while you rehydrate Follow instructions from your health care provider about what to eat while you rehydrate. Your health care provider may recommend that you slowly begin eating regular foods in small amounts. ??? Eat foods that contain a healthy balance of electrolytes, such as bananas, oranges, potatoes, tomatoes, and spinach. ??? Avoid foods that are greasy or contain a lot of fat or sugar. In some cases, you may get nutrition through a feeding tube that is passed through your nose and into your stomach (nasogastric tube, or NG tube). This may be done if you have uncontrolled vomiting or diarrhea. Beverages to avoid Certain beverages may make dehydration worse. While you rehydrate, avoid: ??? Alcohol. ??? Caffeine. ??? Drinks that contain a lot of sugar. These include: ? High-calorie sports drinks. ? Fruit juice that is not diluted. ? Soda. Check nutrition labels to see how much sugar or caffeine a beverage contains. Signs of dehydration recovery You may be recovering from dehydration if: ??? You are urinating more often than before you started rehydrating. ??? Your urine is clear or pale yellow. ??? Your energy level improves. ??? You vomit less frequently. ??? You have diarrhea less frequently. ??? Your appetite improves or returns to normal. ??? You feel less dizzy or less light-headed. ??? Your skin tone and color start to look more normal. Contact a health care provider if: ??? You continue to have symptoms of mild dehydration, such as: ? Thirst. ? Dry lips. ? Slightly dry mouth. ? Dry, warm skin. ? Dizziness. ??? You continue to vomit or have diarrhea. Get help right away if: ??? You have symptoms of dehydration that get worse. ??? You feel: ? Confused. ? Weak. ? Like you are going to faint. ??? You have not urinated in 6???8 hours. ??? You have very dark urine. ??? You have trouble breathing. ??? Your heart rate while sitting still is over 100 beats a minute. ??? You cannot drink fluids without vomiting. ??? You have vomiting or diarrhea that: ? Gets worse. ? Does not go away. ??? You have a fever. This information is not intended to replace advice given to you by your health care provider. Make sure you discuss any questions you have with your health care provider. Document Released: 08/02/2012 Document Revised: 11/28/2016 Document Reviewed: 07/04/2016 [employer] Patient Education ?? 2020 [employer] Dehydration, Adult Dehydration is a condition in which there is not enough fluid or water in the body. This happens when you lose more fluids than you take in. Important organs, such as the kidneys, brain, and heart, cannot function without a proper amount of fluids. Any loss of fluids from the body can lead to dehydration. Dehydration can range from mild to severe. This condition should be treated right away to prevent it from becoming severe. What are the causes? This condition may be caused by: ??? Vomiting. ??? Diarrhea. ??? Excessive sweating, such as from heat exposure or exercise. ??? Not drinking enough fluid, especially: ? When ill. ? While doing activity that requires a lot of energy. ??? Excessive urination. ??? Fever. ??? Infection. ??? Certain medicines, such as medicines that cause the body to lose excess fluid (diuretics). ??? Inability to access safe drinking water. ??? Reduced physical ability to get adequate water and food. What increases the risk? This condition is more likely to develop in people: ??? Who have a poorly controlled long-term (chronic) illness, such as diabetes, heart disease, or kidney disease. ??? Who are age 65 or older. ??? Who are disabled. ??? Who live in a place with high altitude. ??? Who play endurance sports. What are the signs or symptoms? Symptoms of mild dehydration may include: ??? Thirst. ??? Dry lips. ??? Slightly dry mouth. ??? Dry, warm skin. ??? Dizziness. Symptoms of moderate dehydration may include: ??? Very dry mouth. ??? Muscle cramps. ??? Dark urine. Urine may be the color of tea. ??? Decreased urine production. ??? Decreased tear production. ??? Heartbeat that is irregular or faster than normal (palpitations). ??? Headache. ??? Light-headedness, especially when you stand up from a sitting position. ??? Fainting (syncope). Symptoms of severe dehydration may include: ??? Changes in skin, such as: ? Cold and clammy skin. ? Blotchy (mottled) or pale skin. ? Skin that does not quickly return to normal after being lightly pinched and released (poor skin turgor). ??? Changes in body fluids, such as: ? Extreme thirst. ? No tear production. ? Inability to sweat when body temperature is high, such as in hot weather. ? Very little urine production. ??? Changes in vital signs, such as: ? Weak pulse. ? Pulse that is more than 100 beats a minute when sitting still. ? Rapid breathing. ? Low blood pressure. ??? Other changes, such as: ? Sunken eyes. ? Cold hands and feet. ? Confusion. ? Lack of energy (lethargy). ? Difficulty waking up from sleep. ? Short-term weight loss. ? Unconsciousness. How is this diagnosed? This condition is diagnosed based on your symptoms and a physical exam. Blood and urine tests may be done to help confirm the diagnosis. How is this treated? Treatment for this condition depends on the severity. Mild or moderate dehydration can often be treated at home. Treatment should be started right away. Do not wait until dehydration becomes severe. Severe dehydration is an emergency and it needs to be treated in a hospital. Treatment for mild dehydration may include: ??? Drinking more fluids. ??? Replacing salts and minerals in your blood (electrolytes) that you may have lost. Treatment for moderate dehydration may include: ??? Drinking an oral rehydration solution (ORS). This is a drink that helps you replace fluids and electrolytes (rehydrate). It can be found at pharmacies and retail stores. Treatment for severe dehydration may include: ??? Receiving fluids through an IV tube. ??? Receiving an electrolyte solution through a feeding tube that is passed through your nose and into your stomach (nasogastric tube, or NG tube). ??? Correcting any abnormalities in electrolytes. ??? Treating the underlying cause of dehydration. Follow these instructions at home: ??? If directed by your health care provider, drink an ORS: ? Make an ORS by following instructions on the package. ? Start by drinking small amounts, about ?? cup (120 mL) every 5???10 minutes. ? Slowly increase how much you drink until you have taken the amount recommended by your health care provider. ??? Drink enough clear fluid to keep your urine clear or pale yellow. If you were told to drink an ORS, finish the ORS first, then start slowly drinking other clear fluids. Drink fluids such as: ? Water. Do not drink only water. Doing that can lead to having too little salt (sodium) in the body (hyponatremia). ? Ice chips. ? Fruit juice that you have added water to (diluted fruit juice). ? Low-calorie sports drinks. ??? Avoid: ? Alcohol. ? Drinks that contain a lot of sugar. These include high-calorie sports drinks, fruit juice that is not diluted, and soda. ? Caffeine. ? Foods that are greasy or contain a lot of fat or sugar. ??? Take kgxq-ejk-bnsfcqa and prescription medicines only as told by your health care provider. ??? Do not take sodium tablets. This can lead to having too much sodium in the body (hypernatremia). ??? Eat foods that contain a healthy balance of electrolytes, such as bananas, oranges, potatoes, tomatoes, and spinach. ??? Keep all follow-up visits as told by your health care provider. This is important. Contact a health care provider if: ??? You have abdominal pain that: ? Gets worse. ? Stays in one area (localizes). ??? You have a rash. ??? You have a stiff neck. ??? You are more irritable than usual. ??? You are sleepier or more difficult to wake up than usual. ??? You feel weak or dizzy. ??? You feel very thirsty. ??? You have urinated only a small amount of very dark urine over 6???8 hours. Get help right away if: ??? You have symptoms of severe dehydration. ??? You cannot drink fluids without vomiting. ??? Your symptoms get worse with treatment. ??? You have a fever. ??? You have a severe headache. ??? You have vomiting or diarrhea that: ? Gets worse. ? Does not go away. ??? You have blood or green matter (bile) in your vomit. ??? You have blood in your stool. This may cause stool to look black and tarry. ??? You have not urinated in 6???8 hours. ??? You faint. ??? Your heart rate while sitting still is over 100 beats a minute. ??? You have trouble breathing. This information is not intended to replace advice given to you by your health care provider. Make sure you discuss any questions you have with your health care provider. Document Released: 05/11/2006 Document Revised: 04/11/2019 Document Reviewed: 07/04/2016 [employer] Patient Education ?? 2020 [employer]. Syncope Syncope refers to a condition in which a person temporarily loses consciousness. Syncope may also be called fainting or passing out. It is caused by a sudden decrease in blood flow to the brain. Even though most causes of syncope are not dangerous, syncope can be a sign of a serious medical problem. Your health care provider may do tests to find the reason why you are having syncope. Signs that you may be about to faint include: ??? Feeling dizzy or light-headed. ??? Feeling nauseous. ??? Seeing all white or all black in your field of vision. ??? Having cold, clammy skin. If you faint, get medical help right away. Call your local emergency services (911 in the [place] Do not drive yourself to the hospital. Follow these instructions at home: Pay attention to any changes in your symptoms. Take these actions to stay safe and to help relieve your symptoms: Lifestyle ??? Do not drive, use machinery, or play sports until your health care provider says it is okay. ??? Do not drink alcohol. ??? Do not use any products that contain nicotine or tobacco, such as cigarettes and e-cigarettes. If you need help quitting, ask your health care provider. ??? Drink enough fluid to keep your urine pale yellow. General instructions ??? Take iayk-baf-lbkiolj and prescription medicines only as told by your health care provider. ??? If you are taking blood pressure or heart medicine, get up slowly and take several minutes to sit and then stand. This can reduce dizziness or light-headedness. ??? Have someone stay with you until you feel stable. ??? If you start to feel like you might faint, lie down right away and raise (elevate) your feet above the level of your heart. Breathe deeply and steadily. Wait until all the symptoms have passed. ??? Keep all follow-up visits as told by your health care provider. This is important. Get help right away if you: ??? Have a severe headache. ??? Faint once or repeatedly. ??? Have pain in your chest, abdomen, or back. ??? Have a very fast or irregular heartbeat (palpitations). ??? Have pain when you breathe. ??? Are bleeding from your mouth or rectum, or you have black or tarry stool. ??? Have a seizure. ??? Are confused. ??? Have trouble walking. ??? Have severe weakness. ??? Have vision problems. These symptoms may represent a serious problem that is an emergency. Do not wait to see if your symptoms will go away. Get medical help right away. Call your local emergency services (911 in the [place] Do not drive yourself to the hospital. Summary ??? Syncope refers to a condition in which a person temporarily loses consciousness. It is caused by a sudden decrease in blood flow to the brain. ??? Signs that you may be about to faint include dizziness, feeling light-headed, feeling nauseous, sudden vision changes, or cold, clammy skin. ??? Although most causes of syncope are not dangerous, syncope can be a sign of a serious medical problem. If you faint, get medical help right away. This information is not intended to replace advice given to you by your health care provider. Make sure you discuss any questions you have with your health care provider. Document Released: 05/11/2006 Document Revised: 04/19/2018 Document Reviewed: 04/19/2018 [employer] Interactive Patient Education ?? 2020 [employer]. Emergency Awareness and Preventative Care STROKE is an EMERGENCY Every Minute Counts Act FAST and Check for these signs: FACE Does the face look uneven? ARM Does one arm drift down? SPEECH Does their speech sound strange? TIME Call at any sign of stroke Stroke Risk Factors Atrial Fibrillation (irregular heartbeat) Diabetes Family history of stroke Heart Disease Heavy alcohol use High Blood Pressure High Cholesterol Physical inactivity and obesity Smoking Cigarette Smoking The facts are clear, cigarette smoking will shorten your life. Smoking can cause many illnesses along the way. As a healthcare provider, we recommend that you stop smoking. Assistance with quitting is available by contacting 8-515-WYKC-NOW. This is a free resource providing counseling, support, and referral. Or you may contact your personal physician. National Suicide Prevention Lifeline: The National Suicide Prevention Lifeline is a national network of local crisis centers that provides free and confidential emotional support to people in suicidal crisis or emotional distress 24 hours a day, 7 days a week. Don't Wait! Stop a Heart Attack Before it Starts What is a heart attack? A heart attack is damage or to a part of the heart from severely decreased or lack of blood flow to the heart. Over time, arteries can become narrow from the buildup of fat and cholesterol, which is called plaque. The plaque can rupture causing a blood clot to form. When the blood clot forms, the artery can become severely narrowed or completely blocked, causing a heart attack. Heart attack is the leading cause of in the [place]. 85% of muscle damage occurs within the first 2 hours. Delay in the recognition of heart attack symptoms increases the chances of . Know the early symptoms of a heart attack: Nausea Feeling of fullness in chest Jaw Pain Pain that travels down one or both arms Fatigue/being tired Anxiety Back Pain Chest pressure, squeezing, or discomfort Shortness of breath Sweating, or a cold sweat Feeling of impending doom There are unusual signs of a heart attack, too! Women, the elderly, and diabetics may present with atypical symptoms: Fainting/dizziness Weakness Confusion Risk Factors for a Heart Attack Some heart disease risk factors, such as age and family history, cannot be changed. Others, like smoking and lack of exercise, can be changed. Smoking High Cholesterol High Blood Pressure Family History Obesity Age Gender (Males are at higher risk) Lack of Exercise Diabetes Diet Stress Excessive Alcohol Intake If you or someone you know is experiencing the signs and symptoms of a heart attack, DON???T DELAY. Call immediately and seek help. If someone collapses, perform CPR! Do not attempt to drive if you are having symptoms of heart attack. Hands-Only CPR Why Hands-Only CPR? Hands-Only CPR has been shown to be as effective as conventional CPR for cardiac arrests that occur outside of a hospital. Survival depends on immediately receiving CPR from someone nearby. How do you perform Hands-Only CPR? There are two easy steps: Call if you see a teen or adult collapse Push hard and fast in the center of the chest at a beat of 100 beats per minute. Save a life! 4 WAYS TO GET AHEAD OF SEPSIS SEPSIS is a MEDICAL EMERGENCY. Time matters! Infections put you and your family at risk for a life-threatening condition called sepsis. Sepsis is the body's extreme response to an infection. It is life-threatening, and without timely treatment, sepsis can rapidly lead to tissue damage, organ failure, and . Sepsis happens when an infection you already have-in your skin, lungs, urinary tract or somewhere else-triggers a chain reaction throughout your body. 1 PREVENT INFECTIONS Take good care of chronic conditions. Talk to your doctor about getting the recommended vaccines. 2 PRACTICE GOOD HYGIENE Wash your hands frequently. Keep cuts or open sores clean and covered until they are healed. 3 KNOW THE SYMPTOMS Confusion or disorientation Shortness of breath High heart rate Fever, shivering, or feeling very cold Extreme pain or discomfort Clammy or sweaty skin 4 ACT FAST Get medical care IMMEDIATELY if you suspect sepsis or if you have an infection that is not getting better or is getting worse. To learn more about sepsis and how to prevent infections, visit www.cdc.gov/sepsis. The examination and treatment you have received in the Emergency Department has been done to provide an appropriate evaluation and stabilizing treatment on an emergency basis only. Given the limited resources, it is not meant to be a substitute for complete medical care. The follow-up doctor you named will receive a copy of your records and all test reports. IT IS IMPORTANT THAT YOU SCHEDULE A FOLLOW-UP APPOINTMENT AND ARE RE-EVALUATED. You should report any new complaints, symptoms, or remaining problems at that time. IT IS IMPOSSIBLE FOR THE EMERGENCY DEPARTMENT TO RECOGNIZE AND TREAT ALL ELEMENTS OF INJURY OR ILLNESS IN A SINGLE VISIT. If you have been referred to a specialist physician, it means that we believe you may have a condition that requires the expertise of a specialist. These physicians work in partnership with the hospital and have agreed to see referred patients in their office for further evaluation. KEEP IN MIND THAT THE SPECIALIST HAS HIS/HER OWN OFFICE POLICIES WHICH MAY REQUIRE PROPER INSURANCE OR PAYMENT UP FRONT BEFORE THE SPECIALIST WILL SEE YOU. It is your responsibility to call the specialist physician to make an appointment. We do not have the ability to refer patients to specialists/physicians that work with specific insurance companies. Please be advised that all financial charges or billing practices are determined by that practice, not the hospital. If your insurance company requires that you see a specialist from their approved list, it is your responsibility to contact your insurance company to make those arrangements. It is also your responsibility to follow any other requirements of your insurance company necessary to obtain coverage for claims submitted. We will bill your insurance; however, you are responsible today for any co-pay amounts. You will receive a separate bill for any services you may have received including: emergency, radiology, or pathology physicians. Patient Name:ELY RUDD I have received this information and was given the opportunity to ask questions. 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 Date: documented in this encounter Plan of Treatment Not on file documented as of this encounter Visit Diagnoses Not on filedocumented in this encounter Care Teams [place] Relationship Specialty Start Date End Date Bryan Lucas MD [address] [address] [place] [address] PCP - General Neurology 03/21/22 Desi Payne MD [address] [facility], [facility] [address] [place] [address] Rn Telephone Triage Interventional Cardiology 05/08/22 Ana Maria Jeffers MD [facility] [place] [address] Consulting Physician Orthopedic Surgery 06/22/23 documented as of this encounter
== END 2025-01-20 23:59 | disposition home or self-care (01) ==
LOC: RT 10:10
PROVIDERS: PCP Family Medicine; Visit Provider Family Medicine
DX: R42 Dizziness and giddiness (principal); M54.2 Cervicalgia; R26.89 Other abnormalities of gait and mobility
CPT/HCPCS: 93880

== ENCOUNTER 2025-03-01 08:20 | Outpatient (CLI) | payer MEDICARE, SELFPAY ==
--- NOTE | 2025-03-01 08:23 | MR_ITS ---
FINAL REPORT TECHNIQUE: Multiplanar and multisequence imaging of the brain was obtained before and after contrast injection. CLINICAL HISTORY: off balance after a fall a year and a half ago FINDINGS: Atrophy is noted with associated ex vacuo dilatation of the ventricles. There is no mass effect or midline shift. Small foci of periventricular and subcortical white matter are nonspecific. No hydrocephalus. The cerebellum and brainstem have an unremarkable appearance. There are no areas of restricted diffusion on diffusion weighted images to suggest acute infarct. Soft tissues are without acute abnormality. Post contrast images reveal no pathologic contrast enhancement. IMPRESSION: No acute intracranial abnormality and no pathologic contrast enhancement. Periventricular and subcortical T2 abnormality, likely related to changes of chronic small vessel ischemia. Reviewed, Interpreted and Dictated by Kelin Kimbrough MD Transcribed by Gabby Riojas Authenticated and [facility]
[2025-03-01] MEDS: GADOTERIDOL INJ 10ML SYRINGE 4 ML IV (09:40)
[2025-03-01] MEDS: GADOTERIDOL INJ 20ML SYRINGE 20 ML IV (09:40)
== END 2025-03-01 23:59 | disposition home or self-care (01) ==
LOC: RAD 08:21
PROVIDERS: PCP Family Medicine; Visit Provider Family Medicine
DX: R90.89 Other abnormal findings on diagnostic imaging of central nervous system (principal); R26.89 Other abnormalities of gait and mobility
CPT/HCPCS: 70553; A9576